=== PATIENT | male | born 1960 | race Caucasian/White ===

== ENCOUNTER 2016-12-12 15:57 | Inpatient (IN) | payer OTHER, MEDICARE ==
[~2016-12-12] VITALS: Ht 160 cm; Wt 116.6 kg
[~2016-12-12 15:57] MED LIST: A&D OINTMENT TOP; AMBIEN 10MG10 MG PO; CLEOCIN HCL300 MG PO; FUROSEMIDE40 MG PO; HYDROCODONE/ACE1 TAB PO; LISINOPRIL10 MG PO; METFORMIN1000 MG PO; PRAVASTATIN SOD40 M1 PO; [UNRECOGNIZED DRUG - OTHER] PO; nicotine TOP
--- NOTE | 2016-12-12 16:03 | ED UPPER/LOWER EXTREMITY COMPL ---
History of Present Illness General Chief Complaint: Lower Extremity Problems Stated Complaint: LEFT FOOT WOUND PROBLEMS Source: patient, old records, EMS Exam Limitations: no limitations Vital Signs & Intake/Output Vital Signs & Intake/Output Vital Signs Date Time Temp Pulse Resp B/P B/P Pulse O2 O2 Flow FiO2 Mean Ox Delivery Rate 12/16 2222 98.0 70 18 132/71 96 Room Air 06/05 1600 95 Room Air Room Air /05 1409 98.4 68 18 130/62 96 06/ 1142 Room Air Room Air / 0944 80 140/80 06/05 0649 99.7 83 20 158/78 97 Room Air 06/05 0524 100.4 79 20 170/82 95 Room Air ED Intake and Output 12/17 0000 06/05 1200 Intake Total 1580 Output Total 700 1150 Balance 880 -1150 Intake, IV 250 Intake, Oral 1330 Number 1 Bowel Movements Output, Urine 700 1150 Allergies Coded Allergies: NO KNOWN ALLERGIES (10/10/15) Triage Nurses Notes Reviewed? 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 Patient denies any shortness of breath chest pain cough abdominal pain nausea vomiting. Patient was brought in by ambulance in which EMS state that patient's residency is excessively uncapped and unhygienic patient's feet are covered in DIRT and bandageD (SHERITA JOSEPH) Reconcile Medications Furosemide 40 MG TABLET 1 TAB PO DAILY DIURETIC (Reported) Gabapentin 100 MG CAPSULE 1 CAP PO 4XDAILY NERVE PAIN (Reported) Glyburide 5 MG TABLET 1 TAB PO BID DM (Reported) Hydrocodone/Acetaminophen (Hydrocodon-Acetaminophn 10-325) 10 MG-325 MG TABLET 1 TAB PO 4XDAILY PAIN (Reported) Lisinopril 10 MG TABLET 1 TAB PO DAILY BP (Reported) Metformin HCl 1,000 MG TABLET 1 TAB PO BID DM (Reported) Morphine Sulfate (Morphine Sulfate ER) 15 MG TABLET.ER 1 TAB PO BID PAIN ( Reported) Pravastatin Sodium (Pravachol) 80 MG TABLET 1 TAB PO DAILY CHOLESTEROL ( Reported) Zolpidem Tartrate (Ambien) 10 MG TABLET 1 TAB PO PRN SLEEP (Reported) (TORREY PENDLETON,KISHORE Vigil) Past History Travel History Traveled to [place] past 21 day No Medical History Any Pertinent Medical History? 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 Hx Contributory? No (SHERITA JOSEPH) Review of Systems Review of Systems Constitutional: Reports: see HPI, fever. EENTM: Reports: no symptoms. Respiratory: Reports: no symptoms. Cardiovascular: Reports: no symptoms. Gastrointestinal/Abdominal: Reports: no symptoms. Genitourinary: Reports: no symptoms. Musculoskeletal: Reports: see HPI. Skin: Reports: see HPI, change in skin color. Neurological/Psychological: Reports: no symptoms. Hematologic/Endocrine: Reports: no symptoms. Immunological: Reports: no symptoms. All Other Systems: Reviewed and Negative (SHERITA JOSEPH) Physical Exam Physical Exam General Appearance: no apparent distress, comfortable, obese Head: atraumatic Eyes: Bilateral: normal appearance. Ears, Nose, Throat: hearing grossly normal Neck: normal inspection Cardiovascular/Respiratory: regular rate/rhythm Peripheral Pulses: 2+ dorsalis pedis (R), 2+ dorsalis pedis (L) Neurologic/Tendon: normal motor functions, responds to pain, no evidence tendon injury, no pulse deficit Comments: Noted bilateral lower extremity pitting edema Diagram Feet Top 1) 2 cm circular in diameter open ulcer with purulent discharge noted significant surrounding erythema warmth and tenderness (SHERITA JOSEPH) Progress Differential Diagnosis: arterial insufficiency, cellulitis, compartment syndrome , contusion, dislocation, DVT, fracture, septic arthritis, OSTEOMYELITIS Plan of Care: Orders Procedure Date/time Status Nothing by Mouth 12/17 B Active CBC WITHOUT DIFFERENTIAL 06/06 0600 Active VANCOMYCIN TROUGH 12/17 0000 Complete Consistent Carbohydrate 2 12/16 B Complete Therapeutic Exercise 12/16 UNK Complete Therapeutic Activity 12/16 UNK Complete Therapeutic Exercises 12/16 UNK Complete Nursing Misc 12/16 UNK Active MISSING MEDICATION FORM 12/16 UNK Active INCENTIVE SPIROMETRY TRX CHG 12/13 UNK Complete Current Medications Sig/Zehra Start time Last Medication Dose Stop Time Status Admin Insulin Human Regular 0 Q6 12/17 0600 AC (NovoLIN R) Dextrose/Sodium 1,000 ML Q13H 12/17 0015 AC 12/17 Chloride 12/17 1314 0034 (D5W-1/2 Normal Saline 1000ML) Hydromorphone HCl 1 MG Q3P PRN 12/16 1030 AC 12/16 (Dilaudid) 2322 Morphine Sulfate 15 MG BID 12/16 1016 AC 12/16 (Ms Contin) 2128 Vancomycin HCl 1,500 MG Q12H 12/14 1230 AC 12/17 Sodium Chloride 250 ML 0033 (Normal Saline 0.9%) Pravastatin Sodium 80 MG 1700 12/13 1700 AC 12/16 (Pravachol) 1742 Docusate Sodium 100 MG DAILY NEEDED PRN 12/13 1200 AC (Colace) Senna/Docusate Sodium 2 TAB DAILY NEEDED PRN 12/13 1200 AC (Senokot S) Polyethylene Glycol 17 GM DAILY 12/13 1149 AC 12/15 (Miralax) 1103 Furosemide 40 MG DAILY 12/13 1000 AC 12/16 (Lasix) 0941 Gabapentin 100 MG 4 TIMES/DAY 12/13 1000 AC 12/16 (Neurontin) 2128 Nicotine 21 MG DAILY 12/13 1000 AC 12/16 (Nicoderm) 1559 Lisinopril 10 MG DAILY 12/12 2230 AC 12/16 (Prinivil) 0944 Heparin Sodium 5,000 UNIT Q8 12/12 2200 AC 12/16 (Porcine) 2128 Acetaminophen 650 MG Q6P PRN 12/12 2114 AC 12/15 (Tylenol) 0750 Zolpidem Tartrate 10 MG AT BEDTIME NEED.. 12/12 2114 AC (Ambien) Laboratory Tests 12/17/16 0015: Vancomycin Trough 21.6 H 12/16/16 0705: Anion Gap 12, Estimated GFR 57 L, BUN/Creatinine Ratio 34.6 H, CBC w Diff NO MAN DIFF REQ, RBC 3.62 L, MCV 82.1, MCH 26.7 L, RDW 17.5 H, MPV 8.3, Gran % 81.9 H, Lymphocytes % 10.0 L, Monocytes % 5.5, Eosinophils % 2.2, Basophils % 0.4, Absolute Granulocytes 11.2 H, Absolute Lymphocytes 1.4, Absolute Monocytes 0.8 H, Absolute Eosinophils 0.3, Absolute Basophils 0.1, PUBS MCHC 32.5 L Patient on initial examination was noted to be febrile and left foot show significant concerns of osteomyelitis. Discussed patient with Dr. Gutierrez who advised patient to not begin antibiotics and will be nothing by mouth and patient will be transferred to the surgical suite for bone culture evaluation for specific antibiotics for patients critical findings of osteomyelitis. Patient will be admitted to hospital staff (FRANCK MCGHEE,SHERITA) Diagnostic Imaging: Viewed by Me: Radiology Read. Radiology Impression: acute abnormality Comments: PATIENT: JASPREET DELGADO PRESENT AGE: 56 PATIENT ACCOUNT NO: [id number] : 58 LOCATION: [facility] ORDERING PHYSICIAN: SHERITA MCGHEE SERVICE DATE: 12/12/16 EXAM TYPE: RAD - XRY-FOOT COMPLETE, LEFT EXAMINATION: XR FOOT, LEFT CLINICAL INFORMATION: Suspected osteomyelitis at the level of the medial aspect of the first metatarsophalangeal joint. COMPARISON: MRI of the left foot 11/08/2016. Plain films of the left foot 11/04/2016. TECHNIQUE: AP, lateral, and oblique views of the left foot. FINDINGS: Evaluation of the left foot demonstrates a soft tissue defect along the medial aspect of the left foot, adjacent to the first metatarsophalangeal joint. In comparison to the prior examination, there has been increased cortical lucency along the medial aspect of the left great toe, at the base of the proximal phalanx of the left great toe as well as along the medial aspect of the head of the first metatarsal bone. There are moderate degenerative changes involving the metatarsophalangeal joint. No acute fracture or dislocation of the left foot is identified. Scattered foci of subcutaneous emphysema are visualized posterior to the ankle joint. Incidental note is made of posterior and inferior calcaneal heel spurs at the site of insertion of the Achilles tendon and plantar aponeurosis. IMPRESSION: A soft tissue defect along the medial aspect of the left foot, adjacent to the first metatarsophalangeal joint. Interval increased cortical lucency along the medial aspect of the left great toe, specifically along the medial aspect of the base of the proximal phalanx of the left great toe as well as along the medial aspect of the head of the first metatarsal bones. These findings are suspicious for acute osteomyelitis. There are scattered foci of subcutaneous emphysema posterior to the ankle joint. This critical result was discussed with Dr. Sherita Gunn at 5:52 PM on 12/12/2016 and it was ascertained that the content and urgency of the report was understood at the time of direct communication. (SHERITA JOSEPH) Departure Departure Disposition: STILL A PATIENT Condition: Critical Clinical Impression Primary Impression: Osteomyelitis of left foot Secondary Impressions: Cellulitis of left foot, Diabetic foot ulcer Referrals: Madalyn BATISTA MD (PCP/Family) Departure Forms: Customer Survey General Discharge Information Admission Note Spoke With: KWAKU HERRON M.D Documentation of Exam: Documentation of any treatments & extenuating circumstances including Concerns Regarding Discharge (functional status, medication knowledge or non-compliance, living conditions, etc.) that warrant an admission rather than observation: [ Patient will require IV antibiotics after culture is obtained for concerns of osteomyelitis. Patient requires repeat labs, IV fluid resuscitation antipyretics and podiatry consultation] (SHERITA JOSEPH) OR/GI Note Spoke With: MARIBELL GUTIERREZ DPM ED Treatment Decision: JASPREET DELGADO requires urgent operative management or an emergent procedure that cannot be performed in the Emergency Room setting. Transport To: [facility] PA/MONTESSORI PARAPROFESSIONAL Co-Sign Statement Statement: ED Attending supervision documentation- [X] I saw and evaluated the patient. I have also reviewed all the pertinent lab results and diagnostic results. I agree with the findings and the plan of care as documented in the PA's/MONTESSORI PARAPROFESSIONAL's documentation. [X] I have reviewed the ED Record and agree with the PA's/MONTESSORI PARAPROFESSIONAL's documentation. [] Additions or exceptions (if any) to the PAs/MONTESSORI PARAPROFESSIONAL's note and plan are summarized below: [] (TORREY PENDLETON,KISHORE Vigil) Critical Care Note Critical Care Note Critical Care Time: 30-74 min (SHERITA JOSEPH)
--- NOTE | 2016-12-12 16:10 | NUR ---
56 YEAR OLD MALE BIBA FROM HOME C/O LEFT FOOT WOUND. PT ARRIVES TO ED DISHEVELED AND LEHTARGIC FALLING ASLEEP WHILE TALKING TO STAFF. PT REPORTS PMH OF DIABTETE, HYPTERNSION AND CHRONIC PAIN. PT DENIES TAKING ANY HOME MEDICATIONS TODAY. WOUND TO LEFT FOOT WRAPPED IN GAUZE.
--- NOTE | 2016-12-12 16:41 | NUR ---
BLOOD WORK DRAWN AND SENT TO LAB: SST X 2, LAV, BLUE, REYNOSO, PINK TOPS AND FIRST SET OF BLOOD CULTURES. IV EST TO L FOREARM. IV NS LITER BOLUS INFUSING NOW. PT MEDICATED WITH TYLENOL PER EMAR FOR FEVER. PT'S F/S 242.
[2016-12-12 16:45] LABS: ABSOLUTE BASOPHIL COUNT 0 /CUMM (0.0-0.2); ABSOLUTE EOSINOPHIL COUNT 0 /CUMM (0.0-0.7); ABSOLUTE GRANULOCYTE CT 19.1 /CUMM (1.4-6.5); ABSOLUTE LYMPH COUNT 1.2 /CUMM (1.2-3.4); ABSOLUTE MONOCYTE COUNT 1.4 /CUMM (0.10-0.60); BASOPHIL % 0.1 % (0.0-2.0); EOSINOPHIL % 0 % (0-5); HEMATOCRIT 31.2 % (42-52); MEAN CORPUSCULAR HGB 27.1 PG (27.0-31.0); MEAN CORPUSCULAR HGB CONC 33.1 G/DL (33.0-37.0); MEAN CORPUSCULAR VOLUME 81.7 FL (80.0-94.0); MEAN PLATELET VOLUME 7.3 FL (7.4-10.4); PLATELET COUNT 355 /CUMM (130-400); RBC DISTRIBUTION WIDTH 16.9 % (11.5-14.5); RED BLOOD CELL CT 3.82 /CUMM (4.70-6.10); WHITE BLOOD CELL COUNT 21.8 /CUMM (4.8-10.8)
--- NOTE | 2016-12-12 16:45 | NUR ---
ATTEMPTED TO WIPE DOWN PT SINCE PT IS VERY DIRTY. PT REPORTS HE HAS NOT BEEN ABLE TO WALK AROUND AT HOME MUCH HE USUALLY CAN.
[2016-12-12 16:55] LABS: GRANULOCYTE % 87.9 % (42.2-75.2)
[2016-12-12] MEDS ORDERED: METFORMIN HCL1000 M1 PO (17:01)
[2016-12-12] MEDS ORDERED: LISINOPRIL10 M1 PO (17:01)
[2016-12-12] MEDS ORDERED: GLYBURIDE5 M1 PO (17:02)
[2016-12-12] MEDS ORDERED: HYDROCODON-ACE1 EAC1 PO (17:02)
[2016-12-12] MEDS ORDERED: MORPHINE SULFAT15 M3 PO (17:02)
[2016-12-12] MEDS ORDERED: GABAPENTIN100 M2 PO (17:03)
[2016-12-12] MEDS ORDERED: PRAVACHOL80 M1 PO (17:03)
[2016-12-12] MEDS ORDERED: FUROSEMIDE40 M1 PO (17:03)
[2016-12-12] MEDS ORDERED: AMBIEN10 M1 PO (17:04)
--- NOTE | 2016-12-12 17:46 | Cons- Podiatry ---
General Information and HPI Consulting Request Date of Consult: 12/12/16 Requested By: DR HERRON History of Present Illness: Mr. Rudd is a 56-year-old diabetic with a 4-5 day history of fevers associated with a painful and swollen left foot and a draining open wound. The patient has a history of a nonhealing ulcer which was evaluated periodically in the wound center and was noted to undergo a significant interval worsening. The patient now presents with a septic left foot. Allergies/Medications Allergies: Coded Allergies: NO KNOWN ALLERGIES (10/10/15) Home Med List: Furosemide 40 MG TABLET 1 TAB PO DAILY DIURETIC (Reported) Gabapentin 100 MG CAPSULE 1 CAP PO 4XDAILY NERVE PAIN (Reported) Glyburide 5 MG TABLET 1 TAB PO BID DM (Reported) Hydrocodone/Acetaminophen (Hydrocodon-Acetaminophn 10-325) 10 MG-325 MG TABLET 1 TAB PO 4XDAILY PAIN (Reported) Lisinopril 10 MG TABLET 1 TAB PO DAILY BP (Reported) Metformin HCl 1,000 MG TABLET 1 TAB PO BID DM (Reported) Morphine Sulfate (Morphine Sulfate ER) 15 MG TABLET.ER 1 TAB PO BID PAIN ( Reported) Pravastatin Sodium (Pravachol) 80 MG TABLET 1 TAB PO DAILY CHOLESTEROL ( Reported) Zolpidem Tartrate (Ambien) 10 MG TABLET 1 TAB PO PRN SLEEP (Reported) Past History Medical History Neurological: NONE EENT: NONE Cardiovascular: hypertension, hyperlipidemia Respiratory: NONE Gastrointestinal: NONE Hepatic: NONE Renal: NONE Musculoskeletal: NONE Psychiatric: NONE Endocrine: diabetes Blood Disorders: NONE Cancer(s): NONE 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 Psychosocial History ETOH Use: denies use Illicit Drug Use: denies illicit drug use Review of Systems Review of Systems: Unremarkable except for that noted in history of present illness Exam & Diagnostic Data Vital Signs and I&O Vital Signs Date Time Temp Pulse Resp B/P B/P Pulse O2 O2 Flow FiO2 Mean Ox Delivery Rate 12/12 1640 100.5 12/12 1600 100.5 95 20 170/60 95 Room Air Room Air Physical Exam: Gonzales grade 4 ulceration left foot. There is a foul-smelling and necrotic full -thickness wound to the medial aspect of the left foot at the level of the first metatarsal head. There is necrotic slough and central probing with exposed bone identified. There is cellulitis extending to above the ankle with edema noted. Assessment/Plan Assessment/Plan Left foot osteomyelitis. Patient to the OR for open partial first ray resection. We'll start the patient empirically on Unasyn. Patient will likely require a long-term course of IV antibiotics pending recommendations from the infectious disease service. Consult Acknowledgment - Thank you for your consult request. Attending MD Review Statement Attending Statement Attending MD Statement: examined this patient
--- NOTE | 2016-12-12 17:46 | RADIOLOGY REPORT ---
EXAMINATION: XR PORTABLE CHEST CLINICAL INFORMATION: Osteomyelitis. COMPARISON: Chest x-ray 09/10/2006. TECHNIQUE: Portable frontal view of the chest was obtained. FINDINGS: The lungs are well-expanded and clear without focal airspace consolidation. No pleural effusions or pneumothoraces are identified. Cardiomediastinal contours are within normal limits. Soft tissues are unremarkable. No acute osseous abnormality is identified. IMPRESSION: No acute pulmonary process.
--- NOTE | 2016-12-12 17:47 | NUR ---
PRE-OP SCRUB COMPLETED, PT HAS EXCESSIVE AMOUNT OF DIRT ON FEET THAT WAS ATTEMPTED TO BE WIPED OFF TWICE. PRE OP SCRUB COMPLETED TO BEST OF ABILITY.
--- NOTE | 2016-12-12 17:55 | RADIOLOGY REPORT ---
EXAMINATION: XR FOOT, LEFT CLINICAL INFORMATION: Suspected osteomyelitis at the level of the medial aspect of the first metatarsophalangeal joint. COMPARISON: MRI of the left foot 11/08/2016. Plain films of the left foot 11/04/2016. TECHNIQUE: AP, lateral, and oblique views of the left foot. FINDINGS: Evaluation of the left foot demonstrates a soft tissue defect along the medial aspect of the left foot, adjacent to the first metatarsophalangeal joint. In comparison to the prior examination, there has been increased cortical lucency along the medial aspect of the left great toe, at the base of the proximal phalanx of the left great toe as well as along the medial aspect of the head of the first metatarsal bone. There are moderate degenerative changes involving the metatarsophalangeal joint. No acute fracture or dislocation of the left foot is identified. Scattered foci of subcutaneous emphysema are visualized posterior to the ankle joint. Incidental note is made of posterior and inferior calcaneal heel spurs at the site of insertion of the Achilles tendon and plantar aponeurosis. IMPRESSION: A soft tissue defect along the medial aspect of the left foot, adjacent to the first metatarsophalangeal joint. Interval increased cortical lucency along the medial aspect of the left great toe, specifically along the medial aspect of the base of the proximal phalanx of the left great toe as well as along the medial aspect of the head of the first metatarsal bones. These findings are suspicious for acute osteomyelitis. There are scattered foci of subcutaneous emphysema posterior to the ankle joint. This critical result was discussed with Dr. Edd Gunn at 5:52 PM on 12/12/2016 and it was ascertained that the content and urgency of the report was understood at the time of direct communication.
--- NOTE | 2016-12-12 17:58 | NUR ---
PT TAKEN TO OR BY DR. GUTIERREZ AND ANESTHESIOLOGIST.
--- NOTE | 2016-12-12 19:26 | Operative Report ---
Operative/Inv Procedure Report Surgery Date: 12/12/16 Name of Procedure: 1 open incision and drainage deep to the deep fascia with exposure of the flexor tendon and tendon sheath multiple sites left foot 2 open partial first ray resection left foot 3 intraoperative administration of ankle block anesthesia 4 excisional debridement Pre-Operative Diagnosis: 1 plantar space abscess left foot 2 osteomyelitis left foot 3 diabetic peripheral neuropathy Post-Operative Diagnosis: The same Estimated Blood Loss: less than 50ml Surgeon/Medical Record Consultant: MARIEBLL GUTIERREZ DPM Anesthesia: moderate sedation, block Operative/Procedure Note Note: After obtaining informed consent the patient was brought to the operating room and placed on the operating table in the supine position. The patient was then securely fastened to the operating table utilizing safety belt. After administration of IV sedation, 10 mL of 0.5% Marcaine plain was infiltrated about the patient's left ankle. The left foot and ankle within scrubbed prepped and draped in usual aseptic manner. A racquet-type incision encompassing the great toe at the level metatarsal phalangeal joint was incised with a 15 blade. Full-thickness flaps were developed dorsally and plantarly. Dissection was then extended proximally to the distal first metatarsal shaft. The periosteum was incised reflected. Sagittal bone saw was utilized to perform a through and through osteotomy and the distal osseous segment was freed and passed from the operative field. Specimen sent for both microbiologic and pathologic inspection. The dissection was then continued plantarly, along the flexor hallucis longus tendon, where the dissection was carried down deep to the deep fascia with exposure of the flexor tendon and tendon sheath multiple sites, both proximally and distally. All necrotic nonviable infected tissue sharply evacuated from the wound bed. The open dissection was then continued back to the tarsal tunnel. Purulence was noted to be expressed along the flexor tendon. The open wound was then irrigated with 3 L of normal sterile saline infused with 50,000 units of bacitracin. Following this, the foot was redraped and the surgeon's top gloves were exchanged for clean gloves. Any bleeding vessels identified were cauterized or ligated as encountered. Nipple was then packed with iodoform and 2-0 nylon retention sutures were placed followed by 4 x 4's EBD pad Kerlix and an Zach wrap. The patient was noted to tolerate both procedure and anesthesia well and the patient was transported from the operating room to recovery with vital signs stable.
--- NOTE | 2016-12-12 19:57 | History & Physical ---
CRISTÓBAL WEEKS MD 12/12/161955: General Information and HPI MD Statement: I have seen and personally examined DANNYJASPREET Kelley and documented this H&P. The patient is a 56 year old M who presented with a patient stated chief complaint of [fever, infected left foot]. Source of Information: patient Exam Limitations: no limitations History of Present Illness: 56-year-old male, with past medical history of uncontrolled diabetes mellitus type 2, peripheral neuropathy, hypertension, hyperlipidemia, nonhealing ulcer of the left foot, was brought in by ambulance for fever up to 102.6, chills, painful and swollen left foot with drainage. Patient has had nonhealing wound over his left foot for which he has been follow up with Dr. Sanchez. The left foot pain has progressed over the last 3-4 days. It is so painful that he is no longer able to bear weight on it. When the EMS came to pick him up, they noted that his home is unkempt and dirty. Patient's feet are covered with dirt and bandage. Imaging in the ED reveals likely osteomyelitis, and he was taken to the OR straight from the ED by Dr. Sanchez. When we saw the patient, he was in the recovery room and still recovering from anesthesia. He was quite lethargic but cooperative with history and physical exam. When he was sipping on water, he aspirated and coughed very hard. He then was noted to have mild epistaxis. Allergies/Medications Allergies: Coded Allergies: NO KNOWN ALLERGIES (10/10/15) Home Med list Furosemide 40 MG TABLET 1 TAB PO DAILY DIURETIC (Reported) Gabapentin 100 MG CAPSULE 1 CAP PO 4XDAILY NERVE PAIN (Reported) Glyburide 5 MG TABLET 1 TAB PO BID DM (Reported) Hydrocodone/Acetaminophen (Hydrocodon-Acetaminophn 10-325) 10 MG-325 MG TABLET 1 TAB PO 4XDAILY PAIN (Reported) Lisinopril 10 MG TABLET 1 TAB PO DAILY BP (Reported) Metformin HCl 1,000 MG TABLET 1 TAB PO BID DM (Reported) Morphine Sulfate (Morphine Sulfate ER) 15 MG TABLET.ER 1 TAB PO BID PAIN ( Reported) Pravastatin Sodium (Pravachol) 80 MG TABLET 1 TAB PO DAILY CHOLESTEROL ( Reported) Zolpidem Tartrate (Ambien) 10 MG TABLET 1 TAB PO PRN SLEEP (Reported) Past History Travel History Traveled to [place] past 21 day No Medical History Neurological: NONE EENT: NONE Cardiovascular: hypertension, hyperlipidemia Respiratory: NONE Gastrointestinal: NONE Hepatic: NONE Renal: NONE Musculoskeletal: NONE Psychiatric: NONE Endocrine: diabetes Blood Disorders: NONE Cancer(s): 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 Psychosocial History Where do you live? Home Who Do You Live With? spouse Services at Home: None Primary Language: Somali Smoking Status: Current Everyday Smoker (2ppd) ETOH Use: denies use Illicit Drug Use: denies illicit drug use Functional Ability ADLs Independent: dressing, eating, toileting, bathing. Ambulation: independent IADLs Independent: shopping, housework, finances, food prep, telephone, transportation , medication admin. Review of Systems Review of Systems Constitutional: Reports: chills, fever. EENTM: Denies: visual changes. Cardiovascular: Denies: chest pain, palpitations. Respiratory: Reports: cough. Denies: short of breath, sputum production, wheezing. GI: Denies: abdominal pain, bloating, constipation, diarrhea. Genitourinary: Denies: dysuria. Musculoskeletal: Reports: see HPI. Skin: Reports: see HPI. Exam & Diagnostic Data Last 24 Hrs of Vital Signs/I&O Vital Signs Date Time Temp Pulse Resp B/P B/P Pulse O2 O2 Flow FiO2 Mean Ox Delivery Rate 12/12 2324 114 224/90 12/12 2303 99.9 12/12 1748 Room Air Room Air 12/12 1746 100.3 12/12 1746 100.3 93 20 130/63 93 Room Air Room Air 12/12 1640 100.5 12/12 1600 100.5 95 20 170/60 95 Room Air Room Air Physical Exam General Appearance Oriented X3, Cooperative, No Acute Distress, lethargic Skin chronic edema and erythema of both lower extremities left foot wrapped post surgery left big toe now amputated Skin Temp/Moisture Exam: Warm/Dry Sepsis Skin Exam (color): Normal for Ethnicity HEENT Atraumatic, PERRLA, EOMI, dry mucous membrane Neck Supple, No JVD, +2 Carotid Pulse wo Bruit, No LAD Lymphatic Axillary nl, Cervical nl Cardiovascular Regular Rate, Normal S1, Normal S2, No Murmurs, Gallops, Rubs Lungs not taking deep breaths, hence decreased breath sound Abdomen Normal Bowel Sounds, Soft, No Tenderness Neurological Normal Speech Extremities bilateral pitting edema left more than right (chronic as per patient) , left big toe amputated Vascular Normal Pulses, Pulses Symmetrical Last 24 Hrs of Labs/Jabier: Laboratory Tests 12/12/16 1630: Anion Gap 13, Estimated GFR > 60, BUN/Creatinine Ratio 26.7 H, Glucose 245 H, Hemoglobin A1c Pending, Lactic Acid 0.9, Calcium 9.0, Total Bilirubin 0.6, AST 46, ALT 59, Alkaline Phosphatase 151 H, C-Reactive Prot, Quant > 9.0 H, Total Protein 7.1, Albumin 3.2 L, Globulin 3.9, Albumin/Globulin Ratio 0.8 L, CBC w Diff NO MAN DIFF REQ, RBC 3.82 L, MCV 81.7, MCH 27.1, RDW 16.9 H, MPV 7.3 L, Gran % 87.9 H, Lymphocytes % 5.6 L, Monocytes % 6.4, Eosinophils % 0, Basophils % 0.1, Absolute Granulocytes 19.1 H, Absolute Lymphocytes 1.2, Absolute Monocytes 1.4 H, Absolute Eosinophils 0, Absolute Basophils 0, PUBS MCHC 33.1, ESR Westergren > 130 H, Serum Alcohol < 10.0 Microbiology 12/12 1899 EXTREMITIE: Gross Specimen Examination - RECD 12/12 190 EXTREMITIE: Gram Stain - RECD 12/12 1728 BLOOD: Blood Culture - RECD 12/12 1630 BLOOD: Blood Culture - RECD Diagnostic Data EKG Results SR 96, QTc [address], T wave changes Other Results EXAM TYPE: RAD - XRY-FOOT COMPLETE, LEFT EXAMINATION: XR FOOT, LEFT CLINICAL INFORMATION: Suspected osteomyelitis at the level of the medial aspect of the first metatarsophalangeal joint. COMPARISON: MRI of the left foot 11/08/2016. Plain films of the left foot 11/04/2016. TECHNIQUE: AP, lateral, and oblique views of the left foot. FINDINGS: Evaluation of the left foot demonstrates a soft tissue defect along the medial aspect of the left foot, adjacent to the first metatarsophalangeal joint. In comparison to the prior examination, there has been increased cortical lucency along the medial aspect of the left great toe, at the base of the proximal phalanx of the left great toe as well as along the medial aspect of the head of the first metatarsal bone. There are moderate degenerative changes involving the metatarsophalangeal joint. No acute fracture or dislocation of the left foot is identified. Scattered foci of subcutaneous emphysema are visualized posterior to the ankle joint. Incidental note is made of posterior and inferior calcaneal heel spurs at the site of insertion of the Achilles tendon and plantar aponeurosis. IMPRESSION: A soft tissue defect along the medial aspect of the left foot, adjacent to the first metatarsophalangeal joint. Interval increased cortical lucency along the medial aspect of the left great toe, specifically along the medial aspect of the base of the proximal phalanx of the left great toe as well as along the medial aspect of the head of the first metatarsal bones. These findings are suspicious for acute osteomyelitis. There are scattered foci of subcutaneous emphysema posterior to the ankle joint. This critical result was discussed with Dr. Edd Gunn at 5:52 PM on 12/12/2016 and it was ascertained that the content and urgency of the report was understood at the time of direct communication. DICTATED BY: JESSI PARIS MD DATE/TIME DICTATED:12/12/161741 EXAM TYPE: RAD - XRY-PORTABLE CHEST XRAY EXAMINATION: XR PORTABLE CHEST CLINICAL INFORMATION: Osteomyelitis. COMPARISON: Chest x-ray 09/10/2006. TECHNIQUE: Portable frontal view of the chest was obtained. FINDINGS: The lungs are well-expanded and clear without focal airspace consolidation. No pleural effusions or pneumothoraces are identified. Cardiomediastinal contours are within normal limits. Soft tissues are unremarkable. No acute osseous abnormality is identified. IMPRESSION: No acute pulmonary process. DICTATED BY: JESSI PARIS MD DATE/TIME DICTATED:12/12/161733 Assessment/Plan Assessment: 56-year-old male, with past medical history of uncontrolled diabetes mellitus type 2, peripheral neuropathy, hypertension, hyperlipidemia, nonhealing ulcer of the left foot, was brought in by ambulance for fever up to 102.6, chills, painful and swollen left foot with drainage. Labs (WBC 21.8, ESR >130, CRP > 9) and imaging concerning for osteomyelitis, patient was taken to the OR by Dr. Sanchez on 12/12/16 for first ray resection. Subsequently transferred to post op. Problem list: # Osteomyelitis of left foot s/p resection # Poorly controlled DM with peripheral neuropathy # Hypertension # Hyperlipidemia # Chronic lower extremity edema, left more than right # Nicotine dependence # Osteomyelitis of left foot s/p resection * Unasyn 3000 mg every 6 * Follow-up for culture, blood culture * ID consult in the morning * Weight-bearing status heel touch * PP: Dilaudid 0.5 mg IV every 4 when necessary severe pain, Percocet 1 tab every 6 when necessary moderate pain, Tylenol 650 mg every 6 when necessary mild pain. MS Contin 50 mg twice a day * Appreciate podiatry input # Poorly controlled DM with peripheral neuropathy * Follow-up hemiglobin A1c * Insulin NovoLog tidac * We'll hold home glyburide and metformin * Continue Gabapentin 100 mg 4 times a day # Hypertension * Continue Lisinopril 10 mg daily # Hyperlipidemia * Pravastatin 80 mg daily # Chronic lower extremity edema, left more than right * Continue Lasix 40 mg daily # Nicotine dependence * Nicotine patch 21 mg daily # Sleep * Continue Zolpidem 10 mg at bedtime as needed Diet: heart healthy PP: Dilaudid 0.5 mg IV every 4 when necessary severe pain, Percocet 1 tab every 6 when necessary moderate pain, Tylenol 650 mg every 6 when necessary mild pain MS Contin 50 mg twice a day DVT ppx: Heparin subcutaneous and alps FULL CODE As Ranked By This Provider Problem List: 1. Osteomyelitis of left foot Core Measures/Miscellaneous Acute Coronary Syndrome ACS Diagnosis: No Cerebrovascular Accident CVA/TIA Diagnosis: No Congestive Heart Failure CHF Diagnosis: No Venous Thromboembolism VTE Risk Factors: Acute medical illness, Age > 40, Immobility, paresis No [facility] VTE prophylaxis d/t: No contraindications No VTE Pharm Prophylaxis d/t: No contraindications VTE Diagnosis: No VTE Type: NONE VTE Confirmed by (Test): NONE Severe Sepsis Severe Sepsis Present: No Septic Shock Septic Shock Present: No Miscellaneous Documentation Attending Case Discussed With: Dr Pyle Primary Care Physician: Madalyn BATISTA MD Patient sees these Specialists Dr Sanchez Level of Patient Care: General Medicine Consults Needed: Consulting Specialty: Infectious Disease Consulting Physician: Dr. Quentzel Reason for Consult: Osteomyelitis ASHLEY,SHARAD 12/12/161957: Resident Review Statement Resident Statement: examined this patient, discussed with customer operations intern, agreed with customer operations intern, discussed with family, reviewed EMR data (avail), discussed with nursing , discussed with case mgmt, reviewed images, amended to note Other Findings: 56-year-old male with a past medical history of [id number] diabetes mellitus, hypertension, osteomyelitis, hyperlipidemia, also with Dr. Sanchez presented to the ED with concerns for infection that has been going on for the past 4 days. According to the patient he has been noncompliant following up with Dr. Sanchez for osteomyelitis of his left foot. He states that for the past 4 days or so he 's been having excruciating pain in his left fourth associated with purulent discharge. He reports fever of 102.6F as well as chills. Denies any nausea, vomiting, abdominal pain, alterations in bowel movements, chest pain, palpitations, headache. He does endorse cough and bringing up purulent phlegm. He denies any sore throat. He states that for the past couple of days or so he has not been able to ambulate because of pain in his left foot that he grades as a 10 out of 10. Of note he is a current smoker smoking 2 packs per day and has been doing so for a very prolonged period of time. He denies any illicit drug use or alcohol dependence. He states that he's been taking his medications very compliantly. Vitals at the time of admission were 130/63, respiratory rate of 20, pulse 93, MAXIMUM TEMPERATURE of 100.5 saturating 90% on room air On physical exam he is alert, oriented 3, drowsy as he is just coming off sedation from the anesthesia. HEENT revealed PERRLA, dry mucous membranes with minor nosebleed. Examination of the neck did not reveal an elevated JVP or cervical lymphadenopathy. Cardiovascular exam pertinent for normal S1, S2, no murmurs rubs or gallops appreciated. Auscultation of the chest revealed decreased breath sounds bilaterally, abdominal exam was benign with abdomen soft , nontender, nondistended normal bowel sounds present in all 4 quadrants. Examination of the lower extremities revealed bilateral chronic venous stasis changes with wound dressing of the left foot, amputation of the left great toe. He also had bilateral 3+ edema that was pitting. Neuro exam was grossly unremarkable. Labs pertinent for leukocytosis with a white blood cell count of 21,800, and normocytic anemia with an H&H of 10.4/31.2, platelet count of [id number]. ESR elevated to more than 130. Chemistries reveal hyponatremia with a sodium of 135 , potassium of 4.9, anion gap of 13, BUN 32 with a creatinine of 1.2. Serum glucose elevated to 245. LFTs revealed normal AST/ALT, alkaline phosphatase is elevated to 151, CRP within 9. UA was pending. U tox screen was also not done. Serum alcohol level was less than 10. Chest x-ray showed no pleural effusions, pneumothorax, no acute pulmonary process. Foot x-ray showed a soft tissue defect along the medial aspect of the left footadjacent to the first metatarsophalangeal joint. Interval increased cortical lucency along the medial aspect of the left great toe, specifically along the medial aspect of the base of the proximal phalanx of the left great toe as well as along the medial aspect of the head of the first metatarsal bones. These findings are suspicious for acute osteomyelitis. There are scattered foci of subcutaneous emphysema posterior to the ankle joint. In the ER she he received a bolus of normal saline, Tylenol 650 mg by mouth 1. He was evaluated by Dr. Sanchez recommended the patient not be given antibiotics and transferred to the surgical suite for open incision and drainage , excisional debridement as well as partial resection of the first ray of the left foot. Assessment and plan Admit patient to [facility] #Left foot osteomyelitis He underwent incision and drainage as well as debridement together with resection of his first digit of the left foot. We will start him on Unasyn 3000 mg IV every 6 He will be heel touch on his left foot. Follow-up podiatry recommendations Follow-up cultures from the OR, blood cultures as well as the biopsy of bone ID consult if needed. Pain control with MS extended release 50 mg twice a day, Dilaudid 0.5 mg every 4 when necessary IV, Percocet 1 tablet every 6 when necessary. Vitals q shift #Pin-[id number] diabetes mellitus Will hold metformin thousand milligrams twice a day, glyburide 5 mg twice a day We'll start him on NovoLog sliding scale Accu-Cheks 3 times a day and at bedtime #Hypertension Continue lisinopril 10 mg and furosemide 40 mg daily #Hyperlipidemia Continue pravastatin 80 mg daily #Insomnia Continue on Ambien 10 mg daily. -DVT prophylaxis Heparin 5000 international units 3 times a day subcutaneous -Diet Diabetic CODE STATUS Full code JOSHUA PYLE 12/13/16 0522: Attending MD Review Statement Attending Statement Attending MD Statement: examined this patient, discuss w/resident/PA/CORRESPONDENCE ANALYST, agreed w/resident/PA/CORRESPONDENCE ANALYST, reviewed EMR data (avail), reviewed images, amended to note Attending Assessment/Plan: CC: Left foot wound PMH: DM, HTN, HLD, smoker Patient brought in ER through EMS with complaint of left foot wound, pain. Patient has long-standing wound on left foot but since last 3-4 days he noticed more purulent discharge from ulcerated foot with swelling and increased redness. He also noticed fever at home. According to EMS note patient's resident was excessively unkempt and unhygienic and feet was covered with dirt. Patient's left foot wound was periodically examined at the wound center but given patient' s noncompliance it worsened over time. Patient was taken to OR from ED and underwent debridement. Vitals: Tmax 100.5, HR 95, RR 20, blood pressure 170/60, saturating well on room air. On exam: A O 3, cooperative, no acute distress, neck supple, JVD normal, no lymphadenopathy, mucosa moist, no focal neurological deficit, trace pedal edema, left foot wound dressed after surgery With cellulitis left lower extremity. CVS: S1-S2, RRR. RS: Clear to auscultate bilaterally. Abdomen: Soft, NT, ND, bowel sounds present. Labs: WBC 21.8, neutrophils 87%, ESR more than 130, hemoglobin 10.4, MCV 81, RDW 16, sodium 135, potassium 4.9, chloride 100, bicarbonate 22, BUN 32, creatinine 1.2, glucose 245, alkaline phosphatase 151, AST 46, ALT 59 X-ray left foot: A soft tissue defect along the medial aspect of the left foot, adjacent to the first metatarsophalangeal joint. Interval increased cortical lucency along the medial aspect of the left great toe, specifically along the medial aspect of the base of the proximal phalanx of the left great toe as well as along the medial aspect of the head of the first metatarsal bones. These findings are suspicious for acute osteomyelitis. There are scattered foci of subcutaneous emphysema posterior to the ankle joint. CXR: No acute pulmonary process. A and P 56-year-old male with past medical history significant for diabetes and previous osteomyelitis was brought in ER for worsening left foot pain and discharge from the ulcer. Patient had significant fever, leukocytosis and worse looking wound on examination in ER and was directly taken to OR. Patient underwent incision and drainage, debridement, and first great toe amputation. Blood cultures and intraoperative cultures were sent. + Left foot osteomyelitis with secondary cellulitis + Uncontrolled diabetes + History of HTN, HLD, smoker - Admit to general medicine - Continue IV Unasyn - Follow-up on wound culture and blood culture - ID consult if required - Continue sliding scale insulin, hold oral hypoglycemic - Continue by mouth Lasix and lisinopril - Continue home doses of MS Contin, and when necessary medications for breakthrough pain - DVT prophylaxis with heparin
[2016-12-12 23:00] VITALS: BP 224/90
--- NOTE | 2016-12-13 01:42 | NUR ---
12/12/16 AT 2100 PATIENT BP 224/90, HR 114, TEMP 99.9, O2 97% 2L NC, RESP 20. T/C TO DR. GUTIERREZ. 10 MG LISINOPRIL AND TYLENOL ADMINISTERED 650 MG PER MD ORDER. PATIENT WAS RE-ASSESSED BP 136/60, HR 98, 94% 1L NC, RESP 20. T/C TO MD WEEKS. IV TYLENOL WAS ADMINISTERED PER MD ORDER. WILL CONTINUE TO MONITOR.
--- NOTE | 2016-12-13 03:07 | NUR ---
RE-CHECKED TEMP 99. MD AWARE.
--- NOTE | 2016-12-13 05:23 | Admission Certification ---
Admission Certification Certification Statement - As attending physician, I certify that at the time of - admission, based on clinical presentation, severity of - symptoms, need for further diagnostic testing and - therapeutic interventions, and risk of adverse outcomes - without in-hospital treatment, in my clinical assessment, - this patient requires an acute hospital stay for a minimum - of two nights or longer. I have also considered psychsocial - factors such as support system, advanced age, financial - issues, cognitive issues, and failed out-patient treatments, - past re-admission history, safety of patient, and lack of - compliance as applicable. Specific rationale supporting this admission is: Left foot osteomyelitis
--- NOTE | 2016-12-13 05:24 | NUR ---
PATIENT BP 160/70, PULSE 99, TEMP 99.6, O2 SAT 96 RA, RESP 20. MD WEEKS AWARE. PATIENT RESTING COMFORTABLY IN BED. NO DISTRESS NOTED
[2016-12-13 06:50] VITALS: BP 136/60
--- NOTE | 2016-12-13 07:22 | PN- Housestaff ---
See Addendum MALIKA PENDLETON,ENDER 12/13/16 0720: Subjective Follow-up For: Osteomyelitis of left foot Subjective: I saw and examined the patient today morning He is lying in the bed -- reports significant pain in his leg. underwent debridement yesterday. He has been spiking fevers over the night. He was chronically on pain medications for pain all over the body. He had a rapid response later part of the day for being hypoxic and tachycardic -- work up has been negative. Review of Systems Constitutional: Reports: see HPI. Objective Last 24 Hrs of Vital Signs/I&O Vital Signs Date Time Temp Pulse Resp B/P B/P Pulse O2 O2 Flow FiO2 Mean Ox Delivery Rate 12/13 0650 98.4 98 20 136/60 93 Room Air 12/13 0128 100.9 12/13 0119 100.9 12/12 2324 114 224/90 12/12 2303 99.9 12/12 2300 99.9 114 20 224/90 97 Nasal 3.0L Cannula 12/12 1748 Room Air Room Air 12/12 1746 100.3 12/12 1746 100.3 93 20 130/63 93 Room Air Room Air 12/12 1640 100.5 12/12 1600 100.5 95 20 170/60 95 Room Air Room Air Intake & Output 12/13 0800 12/13 0000 12/12 1600 Intake Total 540 1000 Output Total 700 1400 Balance -160 -400 Intake, IV 300 1000 Intake, Oral 240 0 Output, Urine 700 1400 Patient 117.934 kg 120.202 kg Weight Weight Reported by Patient Reported by Patient Measurement Method Physical Exam General Appearance: Alert, Oriented X3, unkempt, multiple flesh colored lesions on the skin Skin: No Rashes HEENT: Atraumatic, PERRLA Neck: Supple Cardiovascular: Normal S1, Normal S2 Lungs: Clear to Auscultation, Normal Air Movement Abdomen: Normal Bowel Sounds, Soft, No Tenderness Neurological: Normal Speech, Normal Tone, Cranial Nerves 3-12 NL Extremities: No Clubbing, No Cyanosis Current Medications: Current Medications Sig/Zehra Start time Last Medication Dose Route Stop Time Status Admin Acetaminophen 1,000 MG ONCE ONE 12/13 1400 DC 12/13 N/A 1 UNIT IV 12/13 1414 1353 Acetaminophen 650 MG .STK-MED ONE 12/13 0842 DC PO 12/13 0843 Acetaminophen 1,000 MG ONCE ONE 12/13 0130 DC 12/13 N/A 1 UNIT IV 12/13 0144 0128 Acetaminophen 650 MG Q6P PRN 12/12 2115 AC 12/13 PO 0841 Ampicillin Sodium/ 3,000 MG Q6 12/12 2359 AC 12/13 Sulbactam Sodium IV 1851 Sodium Chloride 100 ML Docusate Sodium 100 MG DAILY NEEDED PRN 12/13 1200 AC PO Furosemide 40 MG DAILY 12/13 1000 AC 12/13 PO 0835 Gabapentin 100 MG 4 TIMES/DAY 12/13 1000 AC 12/13 PO 2114 Heparin Sodium 5,000 UNIT Q8 12/12 2200 AC 12/13 (Porcine) SC 2114 Hydromorphone HCl 1 MG Q4P PRN 12/13 1045 AC 12/13 IV 1617 Hydromorphone HCl 0.5 MG Q4P PRN 12/12 2115 DC 12/13 IV 0800 Insulin Aspart 0 TIDAC 12/13 0800 AC 12/13 SC 1809 Ketorolac 15 MG Q6 12/13 1800 CAN Tromethamine IV Ketorolac 15 MG Q6 12/13 1200 DC Tromethamine IV Ketorolac 30 MG Q6P PRN 12/13 1045 AC 12/13 Tromethamine IV 1851 Lisinopril 10 MG DAILY 12/13 1000 CAN PO Lisinopril 10 MG DAILY 12/12 2230 AC 12/13 PO 0834 Morphine Sulfate 15 MG BID 12/12 2200 DC 12/13 PO 0949 Nicotine 21 MG DAILY 12/13 1000 AC 12/13 TOP 0834 Oxycodone/ 1 TAB Q6P PRN 12/12 2359 DC 12/13 Acetaminophen PO 0415 Patient Medication 1 ED .STK-MED ONE 12/13 1435 DC Teaching ED 12/13 1436 Polyethylene Glycol 17 GM DAILY 12/13 1149 AC 12/13 PO 1319 Pravastatin Sodium 20 MG 1700 12/13 1700 DC PO Pravastatin Sodium 80 MG 1700 12/13 1700 AC 12/13 PO 1809 Senna/Docusate Sodium 2 TAB DAILY NEEDED PRN 12/13 1200 AC PO Zolpidem Tartrate 10 MG AT BEDTIME NEED.. 12/12 2115 AC PO Last 24 Hrs of Lab/Jabier Results Last 24 Hrs of Labs/Mics: Laboratory Tests 12/13/16 1400: Troponin I 0.02 12/13/16 0655: Anion Gap 11, Estimated GFR > 60, BUN/Creatinine Ratio 22.5, Lactic Acid 0.9, CBC w Diff MAN DIFF ORDERED, RBC 3.53 L, MCV 82.8, MCH 27.3, RDW 16.7 H, MPV 8.1, Gran % 89.3 H, Lymphocytes % 5.2 L, Monocytes % 5.2, Eosinophils % 0.2, Basophils % 0.1, Absolute Granulocytes 19.2 H, Segmented Neutrophils 81 H, Band Neutrophils 8 H, Absolute Lymphocytes 1.1 L, Lymphocytes 10 L, Monocytes 1 L, Absolute Monocytes 1.1 H, Absolute Eosinophils 0, Absolute Basophils 0, Platelet Estimate VERIFIED BY SMEAR, Normocytic RBCs VERIFIED, Normochromic RBCs VERIFIED, PUBS MCHC 32.9 L Assessment/Plan Assessment: Mr. Rudd is a 56 YO M current active smoker, with PMH of uncontrolled diabetes mellitus type 2, peripheral neuropathy, hypertension, hyperlipidemia, nonhealing ulcer of the left foot, was brought in by ambulance for fever up to 102.6, chills, painful and swollen left foot with drainage. Labs (WBC 21.8, ESR >130, CRP > 9) and imaging concerning for osteomyelitis, patient was taken to the OR by Dr. Sanchez on 12/12/16 for first ray resection. Subsequently transferred to post op. plan Osteomyelitis of left foot s/p resection * Unasyn 3000 mg every 6 started empirically * Follow-up for culture, blood culture * Weight-bearing status heel touch * PP: Dilaudid 1 mg IV every 4 when necessary severe pain,IV toradol for moderate pain, Tylenol 650 mg every 6 when necessary mild pain. * MS contin 15mg BID * Appreciate ID and podiatry input Peripheral vascular disease * Uncontrolled diabetic, actively smoking 2packs per day. * Duplex right lower extremity shows increased velocities in profunda femoris artery * we will obtain duplex of left lower extremity as well * Needs angiogram nonemergently Uncontrolled Diabetes mellitus (on oral hypoglycemics) with neuropathy * hemiglobin A1c of 8.4 * Insulin NovoLog tidac * We'll hold home glyburide and metformin * Continue Gabapentin 100 mg 4 times a day HIstory of Hypertension * Continue Lisinopril 10 mg daily History of Hyperlipidemia * Pravastatin 80 mg daily Chronic lower extremity edema, left more than right * Continue Lasix 40 mg daily Nicotine dependence * Nicotine patch 21 mg daily * Smokes 2 packs daily Sleep * Continue Zolpidem 10 mg at bedtime as needed Diet: heart healthy DVT ppx: Heparin subcutaneous and alps FULL CODE Problem List: 1. Diabetes 2. Osteomyelitis of left foot 3. Diabetic foot ulcer 4. Multiple open wounds of right lower extremity Pain Ratin Pain Location: left foot Pain Goal: Pain 4 or less Pain Plan: tylenol prn Dilaudid Toradol Tomorrow's Labs & Rationales: cbc to monitor white count Consulting Request: Consulting Specialty: Infectious Disease Consulting Physician: Dr. Chi Reason for Consult: Osteomyelitis GERMAINE PENDLETON,[facility] 12/13/16 1142: Attending MD Review Statement Attending Statement Attending MD Statement: examined this patient, discuss w/resident/PA/SEPTIC TANK CLEANER, agreed w/resident/PA/SE[employer]IC TANK CLEANER, reviewed EMR data (avail), discussed with nursing, discussed with case mgmt, amended to note Attending Assessment/Plan: Patient seen and examined. Lying in bed. Continues to complain of pain at the surgical site. Denies shortness of breath. Denies cough. Denies chest pain. He remains febrile overnight. His however hemodynamically stable. On examination he does not appear to be in any acute distress. Has bilateral lower extremity swelling 2-3+. Has intact dressing over the right foot he status post partial ray resection. The dressing is blood soaked. At the base of the right great toe is a chronic nondraining ulcer. There is no tenderness. There is no surrounding erythema. Distal pulses are not palpable bilateral lower extremity however this is primarily due to his body habitus. Problems: 1. Left foot osteomyelitis; status post partial ray resection postop day 1. 2. [id number] diabetes mellitus; poorly controlled 3. Hypertension 4. Chronic pain syndrome 5. Anemia. 6. Chronic ulcer base of right great toe. Plan: - Follow-up with the podiatry service regarding plans for repeat surgical intervention. -Follow-up blood cultures, bone culture and pathology. -ID consultation for recommendations regarding antibiotic duration. -Continue IV Unasyn for now. -Patient's last vascular evaluation was last year. At that time he appeared to have adequate blood supply. May need to reconsider repeat vascular surgery evaluation. Please follow-up with the podiatry service regarding this. -Patient has chronic ulcer the base of the right great toe. Recommend x-ray to rule out osteomyelitis. -Optimize pain control. Patient is on morphine 5090 g orally twice daily at baseline. Increase Dilaudid to 1 mg every 4 hours when necessary pain. Begin patient on anti-inflammatory therapy with Toradol IV. -Check stool guaiac. Monitor H&H closely. Check iron profile. -Monitor patient on insulin sliding scale while in the hospital. Upon discharge he would need better control of his diabetes. Patient admits to poor compliance with his primary care follow-up.
[2016-12-13 08:08] LABS: ABSOLUTE BASOPHIL COUNT 0 /CUMM (0.0-0.2); ABSOLUTE EOSINOPHIL COUNT 0 /CUMM (0.0-0.7); ABSOLUTE GRANULOCYTE CT 19.2 /CUMM (1.4-6.5); ABSOLUTE LYMPH COUNT 1.1 /CUMM (1.2-3.4); ABSOLUTE MONOCYTE COUNT 1.1 /CUMM (0.10-0.60); BASOPHIL % 0.1 % (0.0-2.0); EOSINOPHIL % 0.2 % (0-5); HEMATOCRIT 29.2 % (42-52); MEAN CORPUSCULAR HGB 27.3 PG (27.0-31.0); MEAN CORPUSCULAR HGB CONC 32.9 G/DL (33.0-37.0); MEAN CORPUSCULAR VOLUME 82.8 FL (80.0-94.0); MEAN PLATELET VOLUME 8.1 FL (7.4-10.4); RBC DISTRIBUTION WIDTH 16.7 % (11.5-14.5); RED BLOOD CELL CT 3.53 /CUMM (4.70-6.10); WHITE BLOOD CELL COUNT 21.5 /CUMM (4.8-10.8)
[2016-12-13 09:24] LABS: GRANULOCYTE % 89.3 % (42.2-75.2); PLATELET COUNT 335 /CUMM (130-400)
[2016-12-13 13:29] VITALS: BP 134/68
--- NOTE | 2016-12-13 13:44 | Event Note ---
Event Note Event Note: Rapid response called at 1:35pm as started desaturating and tachycardic. Situation Patient started desturating with tachycardia 106. Brief Patient is admitted with left foot osteomyelitis secondary to presumably uncontrolled diabetes and peripheral vascular disease. He underwent debridement yesterday. Possibly reactive to debridement. O/E afebrile, hypoxic - saturating well on 2L, mildly tachy 105. lungs are clear Assessment and plan In the setting of sudden hypoxia with tachycardia of 100's - PE need to be ruled out. we considered a venous doppler lower extermities which was negative. EKG is unremarkable, Trop negative. At this point we ruled out lung and cardiac conditions, closely monitor. Cautiously provide pain medications.
--- NOTE | 2016-12-13 14:52 | RADIOLOGY REPORT ---
EXAMINATION: XR PORTABLE CHEST CLINICAL INFORMATION: CHF. Hypoxia. COMPARISON: Chest x-ray 12/12/2016 TECHNIQUE: Portable frontal view of the chest was obtained. 1:55 PM FINDINGS: No significant abnormality is noted involving the heart, lungs, mediastinum, bony thorax or soft tissues. IMPRESSION: Unremarkable examination.
--- NOTE | 2016-12-13 15:43 | ULTRASOUND REPORT ---
EXAMINATION: US TRIPLEX OF LOWER EXTREMITIES, BILATERAL CLINICAL INFORMATION: Hypoxia. COMPARISON: Ultrasound of the right lower extremity veins 10/09/2015. TECHNIQUE: Color-flow triplex imaging with spectral analysis and compression Doppler were performed on the lower extremities. FINDINGS: Respiratory variation, normal compression and augmented flow are noted throughout the lower extremities. The visualized common femoral, femoral, profunda femoral, popliteal and midcalf peroneal and posterior tibial venous segments demonstrate no evidence of deep venous thrombosis. There are no Mckeon's cysts. IMPRESSION: Normal triplex scan without evidence of deep venous thrombosis involving the bilateral lower extremities.
--- NOTE | 2016-12-13 15:53 | NUR ---
MAIN CONTACT NUMBERS: DAUGHTER KENNEY [phone]. MARLYN [phone]. BROTHER YOSEF [phone]
[2016-12-13 15:54] VITALS: BP 120/82
--- NOTE | 2016-12-13 15:54 | NUR ---
PT ALERT ORIENTED ON RA 96%, DENIES SOB, DENIES PAIN OR DISCOMFORT. IST AT BEDSIDE AND USING. ORAL TEMP 99.5, 1-2+ EDEMA TO BLE, ELEVATED ON PILLOWS, DRESSING TO LEFT FOOT INTACT, SMALL AMT OLD BLOODY DRAINAGE TO GREAT TOE AMP AREA. PTS AND DAUGHTER AT BEDSIDE. XRAY BEING DONE OF FOOT AT THIS TIME. CALL FROM DR JAIN REGARDING MRI- MRI ORDERED BUT MACHINE IS CURRENTLY DOWN. WILL CONTINUE TO MONITOR.
--- NOTE | 2016-12-13 15:55 | NUR ---
RAPID RESPONSE CALLED BY DICTATING RN PATIENT FOUND TO BE TACHYCARDIC AND TACHYPNEIC. BP 134/68, HR 106-110, RECTAL TEMP 103.3, 89% RA. PATIENT RESPONDING APPROPRIATELY AND STATES THAT "I FEEL OKAY". HOWEVER PATIENT CONTINUES TO SWEAT PERFUSELY AND APPEARS TO BE LETHARGIC IN NO ACUTE DISTRESS OTHERWISE. THE RAPID TEAM AT THE BEDSIDE. VITALS REMAIN THE SAME MENTNIONED ABOVE. PATIENT CONTINUE TO DENY CHEST PAIN OR DIFFICULTY BREATHING. WILL CONT TO MONITOR
--- NOTE | 2016-12-13 16:15 | NUR ---
FOLLOW UP NOTE: SINCE THE RAPID RESPONSE, PATIENT CONTINUE TO REMAIN ALERT AND ORIENTED X3. PATIENT IS SATURATING 94% ON RA AT THIS TIME HE REFUSES OXYGEN TO DUE NASAL DRYNESS DESPITE HUMIDIFIER. PATIENT CONTINUES TO STATE THAT HE IS FEELING WELL. VSS ARE STABLE AT THIS TIME DOCUMENTED. TEMP 99.4. WILL CONT TO MONITOR CLOSELY.
--- NOTE | 2016-12-13 16:20 | RADIOLOGY REPORT ---
EXAMINATION: XR FOOT, RIGHT CLINICAL INFORMATION: Wound at the great toe. COMPARISON: None TECHNIQUE: 3 views of the right foot. FINDINGS: No bone destruction. No periosteal reaction. No radiographic evidence for osteomyelitis. Joint spaces are normal. There is a skin ulceration of the plantar surface of the great toe near the IP joint of the toe There is a plantar calcaneal spur measuring 7 mm. There is spur of the calcaneus at the insertion of the Achilles tendon. IMPRESSION: Skin ulceration plantar surface of great toe. No radiographic evidence for osteomyelitis.
--- NOTE | 2016-12-13 16:27 | ULTRASOUND REPORT ---
EXAMINATION: COLOR-FLOW DUPLEX IMAGING OF THE LEFT LOWER EXTREMITY ARTERIAL SYSTEM. CLINICAL INFORMATION: 56-year-old female with nonhealing left foot ulcer. Concern for peripheral arterial disease. COMPARISON: None RIGHT FEMORAL RUNOFF VELOCITIES: The right common femoral artery measures 119 cm/s and is triphasic. The right profunda femoral artery measures 91 cm/s and is triphasic. Right proximal superficial femoral artery measures 147 cm/s and is triphasic. Mid superficial femoral artery measures 114 cm/s and is triphasic. Distal right superficial femoral artery measures 326 cm/s and is biphasic. Right popliteal velocity measures 95 cm/s and is biphasic. Posterior tibial velocity is 49 cm/s and flow is biphasic. Anterior tibial velocity is 124 cm/s and flow is biphasic. Dorsal pedis artery not clearly visualized. IMPRESSION: Significantly elevated velocities within the distal right superficial femoral artery most consistent with hemodynamically significant stenosis. If clinically indicated, further evaluation with a CTA lower extremity runoff may be obtained.
--- NOTE | 2016-12-13 16:35 | NUR ---
DR TORRES AND DR JAIN IN TO SEE PT AT THIS TIME- AND DRAINED LEFT FOOT SURGICAL AREA- MODERATE AMT OF PUS AND SS DRAINAGE. IV DILAUDID ADMINISTERED AT THIS TIME PT COMPLAINING OF SEVERE PAIN TO FOOT. REDRESSED AT THIS TIME. WILL CONTINUE TO MONITOR.
--- NOTE | 2016-12-13 17:01 | Cons- Infect Disease ---
General Information and HPI Consulting Request Date of Consult: 12/13/16 Requested By: KWAKU HERRON M.D Reason for Consult: Left foot infection Source of Information: patient History of Present Illness: This is a 56-year-old man with diabetes and peripheral neuropathy with a nonhealing ulcer on the left great toe for at least the past 6 weeks, admitted on December 12 with several days of pain, swelling and erythema of the left great toe , extending up the left leg, associated with fevers and chills. On admission he was febrile to 100.5. Laboratory data revealed a white blood cell count of 22, 000, ESR greater than 130, BUN/creatinine 32 and 1.2, alk phosphatase 151, hemoglobin A1c 8.4. Chest x-ray was negative. X-ray of the left foot revealed increased cortical lucency along the medial aspect of the left great toe, at the base of the proximal phalanx of the left great toe as well as along the medial aspect of the head of the first metatarsal bone, with scattered foci of subcutaneous emphysema posterior to the ankle joint. He was taken to the OR for an I&D of a plantar space abscess and an open partial first ray resection of the left foot. Postop he was placed on Unasyn. He spiked a fever up to 103 this afternoon. He denies any pain in the left foot at this time. He was seen in conjunction with Podiatry this afternoon, who performed a bedside I&D with drainage of a significant amount of purulent material posterior to the medial malleolus. Allergies/Medications Allergies: Coded Allergies: NO KNOWN ALLERGIES (10/10/15) Home Med List: Furosemide 40 MG TABLET 1 TAB PO DAILY DIURETIC (Reported) Gabapentin 100 MG CAPSULE 1 CAP PO 4XDAILY NERVE PAIN (Reported) Glyburide 5 MG TABLET 1 TAB PO BID DM (Reported) Hydrocodone/Acetaminophen (Hydrocodon-Acetaminophn 10-325) 10 MG-325 MG TABLET 1 TAB PO 4XDAILY PAIN (Reported) Lisinopril 10 MG TABLET 1 TAB PO DAILY BP (Reported) Metformin HCl 1,000 MG TABLET 1 TAB PO BID DM (Reported) Morphine Sulfate (Morphine Sulfate ER) 15 MG TABLET.ER 1 TAB PO BID PAIN ( Reported) Pravastatin Sodium (Pravachol) 80 MG TABLET 1 TAB PO DAILY CHOLESTEROL ( Reported) Zolpidem Tartrate (Ambien) 10 MG TABLET 1 TAB PO PRN SLEEP (Reported) Past History Travel History Traveled to [place] past 21 day No Medical History Neurological: NONE EENT: NONE Cardiovascular: hypertension, hyperlipidemia Respiratory: NONE Gastrointestinal: NONE Hepatic: NONE Renal: NONE Musculoskeletal: NONE Psychiatric: NONE Endocrine: diabetes Blood Disorders: NONE Cancer(s): NONE 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 Psychosocial History Where Do You Live? Home Who Do You Live With? spouse Services at Home: None Primary Language: Pashto Smoking Status: Current Everyday Smoker (2ppd) ETOH Use: denies use Illicit Drug Use: denies illicit drug use Functional Ability ADLs Independent: dressing, eating, toileting, bathing. Ambulation: independent IADLs Independent: shopping, housework, finances, food prep, telephone, transportation , medication admin. Review of Systems Review of Systems All Other Systems: Reviewed and Negative Exam & Diagnostic Data Last 24 Hrs of Vital Signs/I&O Vital Signs Date Time Temp Pulse Resp B/P B/P Pulse O2 O2 Flow FiO2 Mean Ox Delivery Rate 12/13 1559 99.4 12/13 1554 99.4 88 24 120/82 94 Room Air 06 1353 103.3 / 1329 102.8 106 36 134/68 89 Room Air 12/13 1143 Room Air Room Air 12/13 1138 Room Air Room Air 12/13 1052 100.6 06/ 0841 102.0 06/02 0834 130/64 06/02 0650 98.4 98 20 136/60 93 Room Air 06/ 0128 100.9 06/02 0119 100.9 06/01 2324 114 224/90 06/ 2303 99.9 06/ 2300 99.9 114 20 224/90 97 Nasal 3.0L Cannula 12/12 1748 Room Air Room Air 12/12 1746 100.3 06/ 1746 100.3 93 20 130/63 93 Room Air Room Air Intake & Output 02 1600 /02 0800 06/02 0000 Intake Total 540 1000 Output Total 258 383 3455 Balance -800 -160 -400 Intake, IV 300 1000 Intake, Oral 240 0 Output, Urine 385 888 [id number] Patient 260 lb Weight Weight Reported by Patient Measurement Method Physical Exam Other Physical Findings: He is lethargic but arousable, in no acute distress. MAXIMUM TEMPERATURE 103.3. Skin multiple skin tags, with no rash. HEENT exam is negative. Neck is supple with no adenopathy. Lungs are clear. Heart regular rhythm with no murmur. Abdomen is obese, soft, nontender with positive bowel sounds. Back no CVA tenderness. Extremities left foot status post amputation of the great toe, with minimal erythema and with sutures intact; fluctuance and mild tenderness posterior to the left medial malleolus, with purulent drainage expressed, tender to palpation; chronic venous stasis changes to both lower extremities, with minimal erythema over both legs; right great toe plantar ulcer with no surrounding inflammation; decreased pulses bilaterally. Neuro neuropathy both feet. Last 24 Hours of Lab Results: Laboratory Tests 12/13 12/13 12/12 1400 0655 1902 Chemistry Sodium (137 - 145 mmol/L) 138 Potassium (3.5 - 5.1 mmol/L) 4.7 Chloride (98 - 107 mmol/L) 104 Carbon Dioxide (22 - 30 mmol/L) 23 Anion Gap (5 - 16) 11 BUN (9 - 20 mg/dL) 27 H Creatinine (0.7 - 1.2 mg/dL) 1.2 Estimated GFR (>60 ml/min) > 60 BUN/Creatinine Ratio (7 - 25 %) 22.5 Lactic Acid (0.7 - 2.1 mmol/L) 0.9 Cancelled Troponin I (<0.11 ng/ml) 0.02 Hematology CBC w Diff MAN DIFF ORDERED WBC (4.8 - 10.8 /CUMM) 21.5 H RBC (4.70 - 6.10 /CUMM) 3.53 L Hgb (14.0 - 18.0 G/DL) 9.6 L Hct (42 - 52 %) 29.2 L MCV (80.0 - 94.0 FL) 82.8 MCH (27.0 - 31.0 PG) 27.3 RDW (11.5 - 14.5 %) 16.7 H Plt Count (130 - 400 /CUMM) 335 MPV (7.4 - 10.4 FL) 8.1 Gran % (42.2 - 75.2 %) 89.3 H Lymphocytes % (20.5 - 51.1 %) 5.2 L Monocytes % (1.7 - 9.3 %) 5.2 Eosinophils % (0 - 5 %) 0.2 Basophils % (0.0 - 2.0 %) 0.1 Absolute Granulocytes (1.4 - 6.5 /CUMM) 19.2 H Segmented Neutrophils (42.2 - 75.2 %) 81 H Band Neutrophils (0.0 - 5.0 %) 8 H Absolute Lymphocytes (1.2 - 3.4 /CUMM) 1.1 L Lymphocytes (20.5 - 51.1 %) 10 L Monocytes (1.7 - 9.3 %) 1 L Absolute Monocytes (0.10 - 0.60 /CUMM) 1.1 H Absolute Eosinophils (0.0 - 0.7 /CUMM) 0 Absolute Basophils (0.0 - 0.2 /CUMM) 0 Platelet Estimate (ADEQUATE) VERIFIED BY SMEAR Normocytic RBCs VERIFIED Normochromic RBCs VERIFIED PUBS MCHC (33.0 - 37.0 G/DL) 32.9 L Last 24 Hours of Jabier Results: Blood cultures December 12 negative OR culture December 12 labeled bone left first toe positive for Staph aureus, sensitivities pending, Group G strep and diphtheroids Diagnostic Data Recent Imaging Findings: Chest x-ray negative. X-ray of the left foot revealed increased cortical lucency along the medial aspect of the left great toe, at the base of the proximal phalanx of the left great toe as well as along the medial aspect of the head of the first metatarsal bone, with scattered foci of subcutaneous emphysema posterior to the ankle joint. X-ray of the right foot December 13 reveals a skin ulceration on the plantar surface of the great toe with no evidence for osteomyelitis Arterial Dopplers of the left lower extremity December 13 reveals significant elevated velocities within the distal left superficial femoral artery consistent with hemodynamically significant stenosis Chest x-ray December 13 negative Bilateral lower extremity Dopplers December 13 negative Assessment/Plan Assessment/Plan Impression: This is a 56-year-old man with diabetes, with a chronic nonhealing plantar ulcer on the left great toe, admitted on December 12 with several days of pain, swelling and erythema of the left great toe and foot associated with fevers and chills, found on admission to be febrile with a leukocytosis, taken to the OR for a left partial first ray amputation, with a persistent fever and leukocytosis. Based on his x-ray and OR findings his infection appeared to extend posteriorly to the ankle. On my exam he appeared to have fluctuance around the medial malleolus and, after evaluation by Podiatry, a significant amount of purulent drainage was manually expressed, with improvement in his exam. This fluid likely explains his persistent fever and leukocytosis, but he may require a more formal drainage in the OR. His OR cultures are so far growing Staph aureus and Group G strep and he can be continued on Unasyn pending final cultures. It appears he does have vascular compromise and vascular surgery evaluation will be helpful. Suggestion: 1. Further drainage as needed per Podiatry 2. Follow-up OR cultures 3. Vascular surgery evaluation 4. Continue Unasyn pending above Consult Acknowledgment - Thank you for your consult request.
--- NOTE | 2016-12-13 17:16 | Cons- Vascular Surgery ---
General Information and HPI Consulting Request Date of Consult: 12/13/16 Requested By: KWAKU HERRON M.D History of Present Illness: Mr. carpio is a 56-year-old gentleman with history of diabetes, peripheral neuropathy, and PAD. His had a nonhealing left first toe ulcer for over 6 weeks. He presented to the hospital with fever chills and left foot pain. He underwent incision and drainage and partial first ray amputation by Dr. Sanchez. He is on IV antibiotics. He smokes 2 packs per day for many years. A venous ultrasound of the left leg showed no evidence of DVT. I was asked to see the patient regarding adequacy of blood flow to the left foot. Allergies/Medications Allergies: Coded Allergies: NO KNOWN ALLERGIES (10/10/15) Home Med List: Furosemide 40 MG TABLET 1 TAB PO DAILY DIURETIC (Reported) Gabapentin 100 MG CAPSULE 1 CAP PO 4XDAILY NERVE PAIN (Reported) Glyburide 5 MG TABLET 1 TAB PO BID DM (Reported) Hydrocodone/Acetaminophen (Hydrocodon-Acetaminophn 10-325) 10 MG-325 MG TABLET 1 TAB PO 4XDAILY PAIN (Reported) Lisinopril 10 MG TABLET 1 TAB PO DAILY BP (Reported) Metformin HCl 1,000 MG TABLET 1 TAB PO BID DM (Reported) Morphine Sulfate (Morphine Sulfate ER) 15 MG TABLET.ER 1 TAB PO BID PAIN ( Reported) Pravastatin Sodium (Pravachol) 80 MG TABLET 1 TAB PO DAILY CHOLESTEROL ( Reported) Zolpidem Tartrate (Ambien) 10 MG TABLET 1 TAB PO PRN SLEEP (Reported) Past History Medical History Neurological: NONE EENT: NONE Cardiovascular: hypertension, hyperlipidemia Respiratory: NONE Gastrointestinal: NONE Hepatic: NONE Renal: NONE Musculoskeletal: NONE Psychiatric: NONE Endocrine: diabetes Blood Disorders: NONE Cancer(s): NONE PILL MAKER/Reproductive: NONE Other Medical Hx: Cellulitis Peripheral neuropathy Surgical History Pertinent Surgical History: appendectomy Family History Relations & Conditions If Any: MOTHER (Diabetes). Psychosocial History Where Do You Live? Home Who Do You Live With? spouse Services at Home: None Primary Language: Macedonian Smoking Status: Current Everyday Smoker (2ppd) ETOH Use: denies use Illicit Drug Use: denies illicit drug use Functional Ability ADLs Independent: dressing, eating, toileting, bathing. Ambulation: independent IADLs Independent: shopping, housework, finances, food prep, telephone, transportation , medication admin. Review of Systems Review of Systems: Patient denies headache, dizziness, cough, palpitation, diarrhea or constipation Exam & Diagnostic Data Vital Signs and I&O Vital Signs Date Time Temp Pulse Resp B/P B/P Pulse O2 O2 Flow FiO2 Mean Ox Delivery Rate 12/13 1559 99.4 12/13 1554 99.4 88 24 120/82 94 Room Air 12/13 1353 103.3 12/13 1329 102.8 106 36 134/68 89 Room Air 12/13 1143 Room Air Room Air 12/13 1138 Room Air Room Air 12/13 1052 100.6 12/13 0841 102.0 12/13 0834 130/64 12/13 0650 98.4 98 20 136/60 93 Room Air 12/13 0128 100.9 12/13 0119 100.9 12/12 2324 114 224/90 12/12 2303 99.9 12/12 2300 99.9 114 20 224/90 97 Nasal 3.0L Cannula 12/12 1748 Room Air Room Air 12/12 1746 100.3 12/12 1746 100.3 93 20 130/63 93 Room Air Room Air Intake & Output 12/13 1600 12/13 0800 12/13 0000 12/12 1600 12/12 0800 12/12 0000 Intake Total 540 1000 Output Total 279 239 3346 Balance -800 -160 -400 Intake, IV 300 1000 Intake, Oral 240 0 Output, Urine 441 421 8479 Patient 260 lb 265 lb Weight Weight Reported by Patient Reported by Patient Measurement Method Physical Exam: Patient is alert and oriented 3 Cardiovascular: Regular rate and rhythm Lungs: Clear to auscultation bilaterally Abdomen: Soft, nontender nondistended Extremities: The left foot is dressed. The toes were expressed from the bandage are warm to touch. There are bilateral palpable femoral pulses. I'm unable to palpate pedal pulses on the right. Assessment/Plan Assessment/Plan 56-year-old man with sterile diabetes and active 2 pack per day smoker presented with sepsis from left foot infection. He underwent I&D and left first toe amputation by Dr. Sanchez. He has been afebrile the last the 2 shifts. He is hemodynamically stable. He is on Unasyn. Pulses are pending. Recommendations: Please obtain left lower extremity ARTERIAL duplex Continue with antibiotics Foot care by podiatry No urgent vascular surgery intervention is needed at this time. The patient will most likely need an angiogram in a nonurgent matter. Thank you for asking me to be involved in the care of this patient. Consult Acknowledgment - Thank you for your consult request. Attending MD Review Statement Attending Statement Attending MD Statement: examined this patient, discuss w/resident/PA/VISUAL MERCHANDISER
[2016-12-13 22:25] VITALS: BP 122/68
[2016-12-14 06:00] VITALS: BP 138/60
--- NOTE | 2016-12-14 08:40 | PN- Housestaff ---
VERA PENDLETON,KAMERON 12/14/16 0840: Subjective Follow-up For: Left foot osteomyelitis Subjective: Patient followed up and examined by me today. He is resting comfortably in his recliner, with his leg elevated, not in distress, vitals have been stable. His wound dressing was reinforced earlier today during the follow-up. Review of Systems Constitutional: Reports: no symptoms. Objective Last 24 Hrs of Vital Signs/I&O Vital Signs Date Time Temp Pulse Resp B/P B/P Pulse O2 O2 Flow FiO2 Mean Ox Delivery Rate 12/14 1552 98.0 85 20 130/70 96 12/14 0905 102 138/60 12/14 0701 100.3 12/14 0630 100.3 12/14 0600 101.7 102 18 138/60 93 Room Air 12/14 0544 101.7 12/13 2225 98.7 85 18 122/68 93 Intake & Output 12/14 1600 12/14 0800 12/14 0000 Intake Total 2100 780 Output Total 1100 Balance 1000 780 Intake, IV 500 300 Intake, Oral 1600 480 Number 0 0 Bowel Movements Output, Urine 1100 Patient 116.573 kg Weight Physical Exam General Appearance: Alert, Oriented X3, Cooperative, No Acute Distress Other Physical Findings: Examination findings not changed since yesterday. His left foot is wrapped with dressing, with NO SOAKAGE/DRAINAGE. Current Medications: Current Medications Sig/Zehra Start time Last Medication Dose Route Stop Time Status Admin Acetaminophen 1,000 MG ONCE ONE 12/14 0515 DC 12/14 N/A 1 UNIT IV 12/14 0529 0544 Acetaminophen 650 MG Q6P PRN 12/12 2115 AC 12/13 PO 0841 Ampicillin Sodium/ 3,000 MG Q6 12/12 2359 DC 12/14 Sulbactam Sodium IV 0743 Sodium Chloride 100 ML Docusate Sodium 100 MG DAILY NEEDED PRN 12/13 1200 AC PO Furosemide 40 MG DAILY 12/13 1000 AC 12/14 PO 0905 Gabapentin 100 MG 4 TIMES/DAY 12/13 1000 AC 12/14 PO 1743 Heparin Sodium 5,000 UNIT Q8 12/12 2200 AC 12/14 (Porcine) SC 1305 Hydromorphone HCl 1 MG Q4P PRN 12/13 1045 AC 12/14 IV 1140 Insulin Aspart 0 TIDAC 12/13 0800 AC 12/14 SC 1743 Ketorolac 30 MG Q6P PRN 12/13 1045 AC 12/14 Tromethamine IV 1622 Lisinopril 10 MG DAILY 12/12 2230 AC 12/14 PO 0905 Nicotine 21 MG DAILY 12/13 1000 AC 12/14 TOP 0905 Polyethylene Glycol 17 GM DAILY 12/13 1149 AC 12/14 PO 0905 Pravastatin Sodium 80 MG 1700 12/13 1700 AC 12/14 PO 1622 Senna/Docusate Sodium 2 TAB DAILY NEEDED PRN 12/13 1200 AC PO Vancomycin HCl 1,500 MG Q12H 12/14 1230 AC 12/14 Sodium Chloride 250 ML IV 1305 Vancomycin HCl 1,000 MG DAILY 12/14 1105 DC Sodium Chloride 250 ML IV Zolpidem Tartrate 10 MG AT BEDTIME NEED.. 12/12 2115 AC PO Last 24 Hrs of Lab/Jabier Results Last 24 Hrs of Labs/Mics: Laboratory Tests 12/14/16 1703: CBC w Diff NO MAN DIFF REQ, RBC 3.55 L, MCV 82.4, MCH 26.9 L, RDW 17.2 H, MPV 8.0, Gran % 82.8 H, Lymphocytes % 9.6 L, Monocytes % 6.5, Eosinophils % 0.9, Basophils % 0.2, Absolute Granulocytes 11.8 H, Absolute Lymphocytes 1.4, Absolute Monocytes 0.9 H, Absolute Eosinophils 0.1, Absolute Basophils 0, PUBS MCHC 32.7 L 12/14/16 0650: CBC w Diff Cancelled, WBC Cancelled, RBC Cancelled, Hgb Cancelled, Hct Cancelled , MCV Cancelled, MCH Cancelled, RDW Cancelled, Plt Count Cancelled, MPV Cancelled, PUBS MCHC Cancelled Microbiology 12/14 0720 BLOOD: Blood Culture - RECD 12/14 0650 BLOOD: Blood Culture - RECD Assessment/Plan Assessment: Mr. Rudd is a 56 YO M current active smoker, with PMH of uncontrolled diabetes mellitus type 2, peripheral neuropathy, hypertension, hyperlipidemia, nonhealing ulcer of the left foot, was brought in by ambulance for fever up to 102.6, chills, painful and swollen left foot with drainage. Labs (WBC 21.8, ESR >130, CRP > 9) and imaging concerning for osteomyelitis, patient was taken to the OR by Dr. Sanchez on 12/12/16 for first ray resection. Subsequently transferred to post op. plan Osteomyelitis of left foot s/p resection * Unasyn was changed to vancomycin as the patient is now growing staph aureus, and cannot be ruled out for MRSA currently. Patient has been changed to isolation as well. * WBC decreased to 14.3 from 21.5 today. For some unknown reason the morning sample drawn was never recorded in the lab and had to be reordered later in the afternoon. * Follow-up final culture * Weight-bearing status heel touch * PP: Dilaudid 1 mg IV every 4 when necessary severe pain,IV toradol for moderate pain, Tylenol 650 mg every 6 when necessary mild pain. * MS contin 15mg BID * Appreciate ID and podiatry input Peripheral vascular disease * Uncontrolled diabetic, actively smoking 2packs per day. * Duplex left lower extremity shows increased velocities in profunda femoris artery, which is suggestive of stenosis of distal right superficial femoral artery. This critical finding was shared with vascular surgeon Dr. Prather, who mentioned that the patient should go angiogram. Will decide on it on Friday. * Needs angiogram nonemergently Uncontrolled Diabetes mellitus (on oral hypoglycemics) with neuropathy * hemiglobin A1c of 8.4 * Insulin NovoLog tidac * We'll hold home glyburide and metformin * Continue Gabapentin 100 mg 4 times a day HIstory of Hypertension * Continue Lisinopril 10 mg daily History of Hyperlipidemia * Pravastatin 80 mg daily Chronic lower extremity edema, left more than right * Continue Lasix 40 mg daily Nicotine dependence * Nicotine patch 21 mg daily * Smokes 2 packs daily Sleep * Continue Zolpidem 10 mg at bedtime as needed Diet: heart healthy DVT ppx: Heparin subcutaneous and alps FULL CODE Problem List: 1. Osteomyelitis of left foot 2. Diabetic foot ulcer Pain Ratin Pain Location: left foot Pain Goal: Pain 4 or less Pain Plan: prn Tomorrow's Labs & Rationales: CBC Consulting Request: Consulting Specialty: Infectious Disease Consulting Physician: Dr. Chi Reason for Consult: Osteomyelitis NICOL PENDLETON,[facility] 12/14/16 1224: Attending MD Review Statement Attending Statement Attending MD Statement: examined this patient, discuss w/resident/PA/RESTAURANT AND BAR MANAGER, agreed w/resident/PA/RESTAURANT AND BAR MANAGER, discussed with family, reviewed EMR data (avail), discussed with nursing, discussed with case mgmt, reviewed images, amended to note Attending Assessment/Plan: Patient sitting comfortably on the recliner. Still spiking fevers. Most seen by Dr. Sanchez last night, he performed I&D at bedside. Patient reports of improvement in his foot pain following the I&D last night. Appreciate vascular input. Recommendations 1. Culture results are positive for staph aureus, ?MRSA as according to the patient and Dr. Sanchez drained pus from his foot night , patient will need vancomycin. [facility] Follow up ID for further recommendations. 2. Vascular has seen the patient last night, no urgent vascular surgery interventions needed at this time. Please make sure you communicate with Dr. Prather about patient's Doppler results. 3. Ensure adequate pain control. 4. CBC is still pending follow-up CBC.
[2016-12-14 15:52] VITALS: BP 130/70
[2016-12-14 17:45] LABS: ABSOLUTE BASOPHIL COUNT 0 /CUMM (0.0-0.2); ABSOLUTE EOSINOPHIL COUNT 0.1 /CUMM (0.0-0.7); ABSOLUTE GRANULOCYTE CT 11.8 /CUMM (1.4-6.5); ABSOLUTE LYMPH COUNT 1.4 /CUMM (1.2-3.4); ABSOLUTE MONOCYTE COUNT 0.9 /CUMM (0.10-0.60); BASOPHIL % 0.2 % (0.0-2.0); EOSINOPHIL % 0.9 % (0-5); GRANULOCYTE % 82.8 % (42.2-75.2); HEMATOCRIT 29.2 % (42-52); MEAN CORPUSCULAR HGB 26.9 PG (27.0-31.0); MEAN CORPUSCULAR HGB CONC 32.7 G/DL (33.0-37.0); MEAN CORPUSCULAR VOLUME 82.4 FL (80.0-94.0); PLATELET COUNT 335 /CUMM (130-400); RBC DISTRIBUTION WIDTH 17.2 % (11.5-14.5); RED BLOOD CELL CT 3.55 /CUMM (4.70-6.10); WHITE BLOOD CELL COUNT 14.3 /CUMM (4.8-10.8)
[2016-12-14 22:18] VITALS: BP 142/60
[2016-12-15 07:01] VITALS: BP 150/60
[2016-12-15 08:52] LABS: ABSOLUTE BASOPHIL COUNT 0 /CUMM (0.0-0.2); ABSOLUTE EOSINOPHIL COUNT 0.2 /CUMM (0.0-0.7); ABSOLUTE GRANULOCYTE CT 13.4 /CUMM (1.4-6.5); ABSOLUTE LYMPH COUNT 1.8 /CUMM (1.2-3.4); ABSOLUTE MONOCYTE COUNT 0.9 /CUMM (0.10-0.60); BASOPHIL % 0.3 % (0.0-2.0); EOSINOPHIL % 1.3 % (0-5); HEMATOCRIT 28.5 % (42-52); MEAN CORPUSCULAR HGB 27.1 PG (27.0-31.0); MEAN CORPUSCULAR VOLUME 82.2 FL (80.0-94.0); MEAN PLATELET VOLUME 8.7 FL (7.4-10.4); PLATELET COUNT 338 /CUMM (130-400); RBC DISTRIBUTION WIDTH 17.5 % (11.5-14.5); RED BLOOD CELL CT 3.47 /CUMM (4.70-6.10); WHITE BLOOD CELL COUNT 16.3 /CUMM (4.8-10.8)
--- NOTE | 2016-12-15 09:47 | PN- Infect Dx ---
Subjective Subjective: MAXIMUM TEMPERATURE 100. He feels well with minimal pain in the left foot. Objective Last 24 Hrs of Vital Signs/I&O Vital Signs Date Time Temp Pulse Resp B/P B/P Pulse O2 O2 Flow FiO2 Mean Ox Delivery Rate 12/15 0750 100.0 12/15 0701 100.0 79 20 150/60 93 Room Air 12/14 2218 99.5 89 20 142/60 96 Room Air 12/14 1552 98.0 85 20 130/70 96 Intake & Output 12/15 1600 12/15 0800 12/15 0000 Intake Total 900 500 Output Total 600 Balance 300 500 Intake, IV 300 Intake, Oral 600 500 Number 1 Bowel Movements Output, Urine 600 Physical Exam Other Physical Findings: He appears comfortable in no acute distress Lungs are clear Heart regular rhythm with no murmur Extremities left foot dressing intact; chronic venous stasis changes with 1+ edema both lower extremities Results Last 24 Hours of Lab Results: Laboratory Tests 12/15 12/14 0735 1703 Hematology CBC w Diff NO MAN DIFF REQ NO MAN DIFF REQ WBC (4.8 - 10.8 /CUMM) 16.3 H 14.3 H RBC (4.70 - 6.10 /CUMM) 3.47 L 3.55 L Hgb (14.0 - 18.0 G/DL) 9.4 L 9.5 L Hct (42 - 52 %) 28.5 L 29.2 L MCV (80.0 - 94.0 FL) 82.2 82.4 MCH (27.0 - 31.0 PG) 27.1 26.9 L RDW (11.5 - 14.5 %) 17.5 H 17.2 H Plt Count (130 - 400 /CUMM) 338 335 MPV (7.4 - 10.4 FL) 8.7 8.0 Gran % (42.2 - 75.2 %) 82.0 H 82.8 H Lymphocytes % (20.5 - 51.1 %) 10.9 L 9.6 L Monocytes % (1.7 - 9.3 %) 5.5 6.5 Eosinophils % (0 - 5 %) 1.3 0.9 Basophils % (0.0 - 2.0 %) 0.3 0.2 Absolute Granulocytes (1.4 - 6.5 /CUMM) 13.4 H 11.8 H Absolute Lymphocytes (1.2 - 3.4 /CUMM) 1.8 1.4 Absolute Monocytes (0.10 - 0.60 /CUMM) 0.9 H 0.9 H Absolute Eosinophils (0.0 - 0.7 /CUMM) 0.2 0.1 Absolute Basophils (0.0 - 0.2 /CUMM) 0 0 PUBS MCHC (33.0 - 37.0 G/DL) 33.0 32.7 L Last 24 Hours of Jabier Results: OR culture December 12 left first toe bone positive for MRSA, Enterococcus, sensitivities pending, Group G strep, Group F strep and diphtheroids Blood cultures December 12 negative Blood cultures December 14 negative Assessment/Plan Impression: Improving on Vancomycin for a polymicrobial osteomyelitis of the left foot, with MRSA isolated from the OR cultures along with other gram-positive organisms, now 3 days status post left partial first ray amputation, with extension of infection posteriorly to the heel and medial malleolar area. The isolation of diphtheroids is of unclear significance and should not require treatment. His temperatures are lower grade and white blood cell count is down, though slightly increased from yesterday, suggesting the possibility of a persistent infection within the foot that may warrant further drainage/debridement. Suggestion: 1. Further drainage/debridement of the left foot per Podiatry 2. Follow-up Vascular surgery recommendations 3. Continue Vancomycin
--- NOTE | 2016-12-15 12:26 | PN- Att Addend ---
Attending Addendum Attending Brief Note 56-year-old male with history of uncontrolled diabetes type 2, peripheral neuropathy, peripheral vascular disease, nonhealing ulcer of left foot, osteomyelitis of left foot status post open incision and drainage/partial first ray resection left foot by Dr. Sanchez currently being treated for polymicrobial including MRSA osteomyelitis of left foot. Patient sitting comfortably on the recliner. His pain has improved. White count 16.3 which has trended up compared to yesterday 14.3. Tooth spiking low-grade fevers of Tmax 100. Recommendations: 1. Continue vancomycin. Follow-up ID recommendations. 2. Dr. Sanchez may need to revisit the foot, for ? I & D, to see if there is any reaccumulation of the abscess. 3. Make sure the arterial Doppler results are communicated with vascular, and for further interventions. 4. Ensure adequate pain control
[2016-12-15 14:07] VITALS: BP 140/80
[2016-12-15 22:27] VITALS: BP 142/80
[2016-12-16 05:24] VITALS: BP 170/82
[2016-12-16 06:49] VITALS: BP 158/78
--- NOTE | 2016-12-16 07:35 | PN- Housestaff ---
MALIKA PENDLETON,ENDER 12/16/16 0734: Subjective Follow-up For: Left foot Osteomyelitis Subjective: I saw the patient today morning He is very frustrated regarding being nothing by mouth, wants to know time of the procedure. overnight he had a fever of 100.4,tachycardic. I started him on diet after speaking to Dr. Mclaughlin regarding postponement of the procedures to Friday. Started on diet, nothing by mouth tonight. he had questions regarding follow-up with pain management clinic as he had an appointment on December 19. Review of Systems Constitutional: Reports: see HPI. Objective Last 24 Hrs of Vital Signs/I&O Vital Signs Date Time Temp Pulse Resp B/P B/P Pulse O2 O2 Flow FiO2 Mean Ox Delivery Rate 12/16 0649 99.7 83 20 158/78 97 Room Air 12/16 0524 100.4 79 20 170/82 95 Room Air 12/15 2227 98.8 80 20 142/80 98 Room Air / 1407 98.2 78 20 140/80 97 06/04 1104 80 145/64 12/15 0849 98.0 / 0750 100.0 Intake & Output 12/16 0800 / 0000 12/15 1600 Intake Total 1120 250 Output Total 400 500 2 Balance -400 620 248 Intake, IV 120 250 Intake, Oral 1000 Output, Stool 2 Output, Urine 400 500 Physical Exam General Appearance: Alert, Oriented X3, Cooperative Skin: No Rashes, No Breakdown, dressing on left foot region HEENT: Atraumatic, PERRLA Neck: Supple Cardiovascular: Normal S1, Normal S2 Lungs: Clear to Auscultation, Normal Air Movement Abdomen: Normal Bowel Sounds, Soft, No Tenderness Neurological: Strength at 5/5 X4 Ext, Cranial Nerves 3-12 NL Current Medications: Current Medications Sig/Zehra Start time Last Medication Dose Route Stop Time Status Admin Acetaminophen 650 MG .STK-MED ONE 12/15 0739 DC PO 12/15 0740 Acetaminophen 650 MG Q6P PRN 12/12 2115 AC 12/15 PO 0750 Docusate Sodium 100 MG DAILY NEEDED PRN 12/13 1200 AC PO Furosemide 40 MG DAILY 12/13 1000 AC 12/15 PO 1100 Gabapentin 100 MG 4 TIMES/DAY 12/13 1000 AC / PO 2105 Heparin Sodium 5,000 UNIT Q8 12/12 2200 AC 12/16 (Porcine) SC 0532 Hydromorphone HCl 1 MG Q4P PRN 12/13 1045 AC 12/16 IV 0456 Insulin Aspart 0 TIDAC 12/13 0800 DC 12/15 SC 12/16 0000 1658 Insulin Human Regular 0 TIDAC/HS 12/15 2100 AC 12/15 SC 2105 Ketorolac 30 MG Q6P PRN 12/13 1045 AC 12/15 Tromethamine IV 1753 Lisinopril 10 MG DAILY 12/12 2230 AC 12/15 PO 1104 Nicotine 21 MG DAILY 12/13 1000 AC 12/15 TOP 0536 Polyethylene Glycol 17 GM DAILY 12/13 1149 AC 12/15 PO 1103 Pravastatin Sodium 80 MG 1700 12/13 1700 AC 12/15 PO 1659 Senna/Docusate Sodium 2 TAB DAILY NEEDED PRN 12/13 1200 AC PO Vancomycin HCl 1,500 MG Q12H 12/14 1230 AC 12/16 Sodium Chloride 250 ML IV 0041 Zolpidem Tartrate 10 MG AT BEDTIME NEED.. 12/12 2115 AC PO Last 24 Hrs of Lab/Jabier Results Last 24 Hrs of Labs/Mics: Laboratory Tests 12/16/16 0705: Anion Gap 12, Estimated GFR 57 L, BUN/Creatinine Ratio 34.6 H, CBC w Diff NO MAN DIFF REQ, RBC 3.62 L, MCV 82.1, MCH 26.7 L, RDW 17.5 H, MPV 8.3, Gran % 81.9 H, Lymphocytes % 10.0 L, Monocytes % 5.5, Eosinophils % 2.2, Basophils % 0.4, Absolute Granulocytes 11.2 H, Absolute Lymphocytes 1.4, Absolute Monocytes 0.8 H, Absolute Eosinophils 0.3, Absolute Basophils 0.1, PUBS MCHC 32.5 L Assessment/Plan Assessment: Mr. Rudd is a 56 YO M current active smoker, with PMH of uncontrolled diabetes mellitus type 2, peripheral neuropathy, hypertension, hyperlipidemia, nonhealing ulcer of the left foot, was brought in by ambulance for fever up to 102.6, chills, painful and swollen left foot with drainage. Labs (WBC 21.8, ESR >130, CRP > 9) and imaging concerning for osteomyelitis, patient was taken to the OR by Dr. Sanchez on 12/12/16 for first ray resection. Subsequently transferred to post op. plan Osteomyelitis of left foot s/p resection * IV vancomycin for MRSA, Vanco trough level with next dose. * WBC decreased to 13.6 from 21.5 today. * Follow-up final culture * Weight-bearing status heel touch * PP: Dilaudid 1 mg IV every 3 when necessary severe pain for breakthrough, morphine sulfate (MS Contin)15 twice a day, Tylenol for mild pain * Nothing by mouth overnight for repeat debridement tomorrow. * Appreciate ID and podiatry input Peripheral vascular disease * Uncontrolled diabetic, actively smoking 2 packs per day. * Duplex left lower extremity shows increased velocities in profunda femoris artery, which is suggestive of stenosis of distal right superficial femoral artery. This critical finding was shared with vascular surgeon Dr. Prather, who mentioned that the patient should go angiogram. Will decide on it on Friday. * Needs angiogram nonemergently Uncontrolled Diabetes mellitus (on oral hypoglycemics) with neuropathy * hemiglobin A1c of 8.4 * Insulin NovoLog tidac * We'll hold home glyburide and metformin * Continue Gabapentin 100 mg 4 times a day HIstory of Hypertension * Continue Lisinopril 10 mg daily History of Hyperlipidemia * Pravastatin 80 mg daily Chronic lower extremity edema, left more than right * Continue Lasix 40 mg daily Nicotine dependence * Nicotine patch 21 mg daily * Smokes 2 packs daily Sleep * Continue Zolpidem 10 mg at bedtime as needed Diet: heart healthy DVT ppx: Heparin subcutaneous and alps FULL CODE Problem List: 1. Osteomyelitis of left foot 2. Diabetic foot ulcer 3. Multiple open wounds of right lower extremity 4. Diabetes Pain Ratin Pain Location: left foot Pain Goal: Pain 4 or less Pain Plan: Tyleonol prn Dilaudid Morphine Sr 15mg BID Tomorrow's Labs & Rationales: cbc to monitor white count Consulting Request: Consulting Specialty: Infectious Disease Consulting Physician: Dr. Chi Reason for Consult: Osteomyelitis OMAR SWEET MD 12/16/16 1818: Attending MD Review Statement Attending Statement Attending MD Statement: examined this patient, discuss w/resident/PA/GYM TEACHER, agreed w/resident/PA/GYM TEACHER, reviewed EMR data (avail) Attending Assessment/Plan: 56M PMH HTN, HLD, T2DM, diabetic peripheral polyneuropathy admitted with sepsis secondary to acute osteomyelitis of the left foot s/p incision and drainage on by podiatry, with wound cultures growing mRSA and polymicrobial organisms. Temp 100.7 today. Patient doing well. Pain controlled. Arterial doppler showing right femoral artery stenosis. 1. Sepsis secondary to mRSA (resolved) 2. Acute osteomyelitis of left foot 3. Right SFA stenosis 4. Peripheral arterial disease 5. T2DM with diabetic polyneuropathy Plan - Continue on general medicine - Continue Vancomycin - Follow cultures - Follow ID, podiatry, vascular recommendations - Will go to OR tomorrow for revision - Monitor fingerstick levels - Continue home medications - DVT PPx
[2016-12-16 08:17] LABS: ABSOLUTE BASOPHIL COUNT 0.1 /CUMM (0.0-0.2); ABSOLUTE EOSINOPHIL COUNT 0.3 /CUMM (0.0-0.7); ABSOLUTE GRANULOCYTE CT 11.2 /CUMM (1.4-6.5); ABSOLUTE LYMPH COUNT 1.4 /CUMM (1.2-3.4); ABSOLUTE MONOCYTE COUNT 0.8 /CUMM (0.10-0.60); BASOPHIL % 0.4 % (0.0-2.0); EOSINOPHIL % 2.2 % (0-5); GRANULOCYTE % 81.9 % (42.2-75.2); HEMATOCRIT 29.8 % (42-52); MEAN CORPUSCULAR HGB 26.7 PG (27.0-31.0); MEAN CORPUSCULAR HGB CONC 32.5 G/DL (33.0-37.0); MEAN CORPUSCULAR VOLUME 82.1 FL (80.0-94.0); MEAN PLATELET VOLUME 8.3 FL (7.4-10.4); PLATELET COUNT 337 /CUMM (130-400); RBC DISTRIBUTION WIDTH 17.5 % (11.5-14.5); RED BLOOD CELL CT 3.62 /CUMM (4.70-6.10); WHITE BLOOD CELL COUNT 13.6 /CUMM (4.8-10.8)
[2016-12-16 14:09] VITALS: BP 130/62
--- NOTE | 2016-12-16 17:01 | PN- Infect Dx ---
Subjective Subjective: MAXIMUM TEMPERATURE 100.4. He notes some discomfort in the left foot but is overall improved. Objective Last 24 Hrs of Vital Signs/I&O Vital Signs Date Time Temp Pulse Resp B/P B/P Pulse O2 O2 Flow FiO2 Mean Ox Delivery Rate 12/16 1409 98.4 68 18 130/62 96 / 1142 Room Air Room Air 12/16 0944 80 140/80 06/ 0649 99.7 83 20 158/78 97 Room Air 12/16 0524 100.4 79 20 170/82 95 Room Air 12/15 2227 98.8 80 20 142/80 98 Room Air Intake & Output 12/16 1600 06/05 0800 06/ 0000 Intake Total 750 1120 Output Total 1150 500 Balance 750 -1150 620 Intake, IV 250 120 Intake, Oral 500 1000 Number 1 Bowel Movements Output, Urine 1150 500 Physical Exam Other Physical Findings: He appears comfortable in no acute distress Extremities left foot dressing intact Results Last 24 Hours of Lab Results: Laboratory Tests 12/16 07 Chemistry Sodium (137 - 145 mmol/L) 138 Potassium (3.5 - 5.1 mmol/L) 4.7 Chloride (98 - 107 mmol/L) 101 Carbon Dioxide (22 - 30 mmol/L) 24 Anion Gap (5 - 16) 12 BUN (9 - 20 mg/dL) 45 H Creatinine (0.7 - 1.2 mg/dL) 1.3 H Estimated GFR (>60 ml/min) 57 L BUN/Creatinine Ratio (7 - 25 %) 34.6 H Hematology CBC w Diff NO MAN DIFF REQ WBC (4.8 - 10.8 /CUMM) 13.6 H RBC (4.70 - 6.10 /CUMM) 3.62 L Hgb (14.0 - 18.0 G/DL) 9.7 L Hct (42 - 52 %) 29.8 L MCV (80.0 - 94.0 FL) 82.1 MCH (27.0 - 31.0 PG) 26.7 L RDW (11.5 - 14.5 %) 17.5 H Plt Count (130 - 400 /CUMM) 337 MPV (7.4 - 10.4 FL) 8.3 Gran % (42.2 - 75.2 %) 81.9 H Lymphocytes % (20.5 - 51.1 %) 10.0 L Monocytes % (1.7 - 9.3 %) 5.5 Eosinophils % (0 - 5 %) 2.2 Basophils % (0.0 - 2.0 %) 0.4 Absolute Granulocytes (1.4 - 6.5 /CUMM) 11.2 H Absolute Lymphocytes (1.2 - 3.4 /CUMM) 1.4 Absolute Monocytes (0.10 - 0.60 /CUMM) 0.8 H Absolute Eosinophils (0.0 - 0.7 /CUMM) 0.3 Absolute Basophils (0.0 - 0.2 /CUMM) 0.1 PUBS MCHC (33.0 - 37.0 G/DL) 32.5 L Last 24 Hours of Jabier Results: Blood cultures 2 December 12 and December 14 remain negative Assessment/Plan Impression: Stable on Vancomycin Day 2 of treatment for a polymicrobial osteomyelitis of the left foot, with MRSA isolated from the OR cultures along with other gram- positive organisms, now 4 days status post left partial first ray amputation, with extension of infection posteriorly to the heel and medial malleolar area. His temperatures remain lower grade and white blood cell count remains elevated, though decreased, and suspect that he has residual infection within the left foot. He is scheduled for a return to the OR in the a.m. for further debridement/drainage. Suggestion: 1. Await return to the OR in the a.m. per Podiatry 2. Vascular surgery follow-up regarding the arterial Doppler results 3. Vancomycin trough level with his next dose 4. Continue Vancomycin
--- NOTE | 2016-12-16 17:16 | Discharge Summary ---
Visit Information Visit Dates Admission Date: 12/12/16 Discharge Date: 12/27/16 Hospital Course Course Attending Physician: Phil SWEET YIANNIS Primary Care Physician: Madalyn BATISTA MD MARK Consulting Request: Consulting Specialty: Infectious Disease Consulting Physician: Dr. Chi Reason for Consult: Osteomyelitis Hospital Course: The patient is a 56-year-old male with past medical history significant for diabetes, current active smoker, peripheral neuropathy, hypertension, hyperlipidemia, nonhealing ulcer of the left foot and previous osteomyelitis who was brought to the ER for worsening left foot pain and discharge from his left foot ulcer. Patient had significant fever, leukocytosis and a worse looking wound on examination in the ER and was directly taken to OR. Vital signs on presentation showed temp of 100.5F, pulse 95bpm, BP 170/60 mmhg, PO2 95% on room air. Physical Exam on presentation General Appearance: Oriented X3, Cooperative, No Acute Distress, lethargic Skin: chronic edema and erythema of both lower extremities left foot wrapped post surgery left big toe now amputated Skin: Temp/Moisture Exam: Warm/Dry Sepsis Skin Exam (color): Normal for Ethnicity HEENT: Atraumatic, PERRLA, EOMI, dry mucous membrane Neck: Supple, No JVD, +2 Carotid Pulse wo Bruit, No LAD Lymphatic: Axillary nl, Cervical nl Cardiovascular: Regular Rate, Normal S1, Normal S2, No Murmurs, Gallops, Rubs Lungs: not taking deep breaths, hence decreased breath sound Abdomen: Normal Bowel Sounds, Soft, No Tenderness Neurological: Normal Speech Extremities: bilateral pitting edema left more than right (chronic as per patient) , left big toe amputated Vascular: Normal Pulses, Pulses Symmetrical Patient underwent incision and drainage, debridement x 2 with first ray amputation of his left foot. An arterial ultrasound of his left lower extremity showed severe stenosis of the left SFA. He had blood cultures which remained negative on admission, but intraoperative bone cultures grew multiple organisms including diphtheroids, MRSA, enterococcus, beta Streptococcus group G and beta strep group F. His baseline ESR was >130 mm/hr and remainded so throughout the admission. He was started on IV vancomycin which was dosed according to trough levels. He had repeat debridement of his left foot two times with repeat culture growing Pseudomonas and Citrobacter in addition to MRSA and Enterococcus. He was started on IV Zosyn and IV vancomycin for these infections. He also had vascular surgery with an angioplasty/stent of his left SFA, angioplasty of left tibioperoneal trunk, via right groin percutaneous access. After the vascular surgery the >50 % stenosis of his left SFA was resolved with resultant brisk flow on intraoperative angiogram. He also had angioplasty of the diffuse stenosis in his left tibioperoneal trunk with resultant resolution of the stenosis after the procedure. He was given medications for pain which included Dilaudid 1 mg IV every 3 hours when necessary for severe pain, and PO MS Contin 30mg Q 8 hrs. His pain medications were adjusted and finally changed to fenatanyl patch 75 MCG/hr and MSIR 15 mg Q4 hours PRN for pain. He had wound vac placed by Supervisor Lens Generating, Dr. Sanchez and was discharged to the short term rehab facility. On account of his poor renal function, his vancomycin will be dosed 1 GRAM Q12 hours. He should have a vancomycin trough level drawn just before the morning dose on 12/28/16. His vancomycin trough level result should be sent to his primary care provider for necessary adjustments to his dosing regimen. He is Weight bearing status heel touch on LEFT FOOT ONLY TO COMMODE WITH WALKER and non weight bearing on left foot at all other times. His hemiglobin A1c was 8.4 on admission. He was placed on novolog sliding scale and levemir for his diabetes and his metformin and glyburide home medications were discontinued due to their risks in chronic kidney disease. Complications: none Allergies: Coded Allergies: NO KNOWN ALLERGIES (10/10/15) Significant Procedures: Podiatry surgery 1 open incision and drainage deep to the deep fascia with exposure of the flexor tendon and tendon sheath multiple sites left foot 2 open partial first ray resection left foot 3 intraoperative administration of ankle block anesthesia 4 excisional debridement Vascular surgery 1. Ultrasound-guided right common femoral artery access 2. Aortogram 3. Third order left leg angiogram 4. Angioplasty of left SFA 5. Stenting of left SFA 6. Angioplasty of left tibioperoneal trunk Pertinent Lab Results: X-ray left foot: A soft tissue defect along the medial aspect of the left foot, adjacent to the first metatarsophalangeal joint. Interval increased cortical lucency along the medial aspect of the left great toe, specifically along the medial aspect of the base of the proximal phalanx of the left great toe as well as along the medial aspect of the head of the first metatarsal bones. These findings are suspicious for acute osteomyelitis. There are scattered foci of subcutaneous emphysema posterior to the ankle joint. CXR: No acute pulmonary process. Disposition Summary Disposition Principal Diagnosis: 1. Left foot osteomyelitis with secondary cellulitis 2. Peripheral vascular disease with stenosis of left SFA and left tibioperoneal trunk Additional Diagnosis: 3. Uncontrolled diabetes 4. Chronic kidney disease 5. History of HTN 6. HLD 7. Smoker Discharge Disposition: SNF Discharge Instructions General Discharge Information Code Status: Full Code Patient's Diet: Diabetic diet Patient's Activity: Weight bearing status heel touch on LEFT FOOT ONLY TO COMMODE WITH WALKER and non weight bearing to left foot at all other times. Follow-Up Instructions/Appts: 1. Please follow-up with your primary care physician within 7 days of discharge. 2. Please inform your primary care physician of this admission to the hospital. 3. Please inform the primary for this care physician of the treatment administered to you. 4. Please follow-up with the kindergarten paraprofessional within 7 days. We have provided you referral. 5. Please continue taking your antibiotics vancomycin and zosyn until you complete 4 full weeks on January 16, 2017. 6. Please check your vancomycin trough level just before your morning vancomycin dose on 12/28/16 and send the result to your PCP to adjust your vancomycin dosage. 7. Please have a Vancomycin trough level drawn every week after that 8. Please have a CBC drawn every week. 9. Please have a BEP (with BUN/Cr) drawn every week. 10. Please have a sedimentation rate (ESR) drawn every week. 11. Forward all lab results to your PCP for further action. Medications at Discharge Discharge Medications: Stop taking the following medications: Metformin HCl (Metformin HCl) 1,000 MG TABLET ORAL TWICE DAILY Qty = 60 Glyburide (Glyburide) 5 MG TABLET ORAL TWICE DAILY Qty = 180 Furosemide (Furosemide) 40 MG TABLET ORAL DAILY Qty = 30 Continue taking these medications: Lisinopril (Lisinopril) 10 MG TABLET 1 Tablet ORAL DAILY Qty = 30 Hydrocodone/Acetaminophen (Hydrocodon-Acetaminophn 10-325) 10 MG-325 MG TABLET 1 Tablet ORAL 4XDAILY Qty = 120 Morphine Sulfate (Morphine Sulfate ER) 15 MG TABLET.ER 1 Tablet ORAL TWICE DAILY Qty = 60 Pravastatin Sodium (Pravachol) 80 MG TABLET 1 Tablet ORAL DAILY Gabapentin (Gabapentin) 100 MG CAPSULE 1 Capsule ORAL 4XDAILY Qty = 120 Zolpidem Tartrate (Ambien) 10 MG TABLET 1 Tablet ORAL as needed for SLEEP Start taking the following new medications: Fentanyl Citrate (Duragesic) 75 MCG/HOUR PATCH.TD72 75 Microgram On the skin Q72H Qty = 2 No Refills Insulin Aspart (Novolog) 100 UNIT/ML VIAL 0 Inject into fatty tissue 3 TIMES DAILY BEFORE MEALS Qty = 1 No Refills Instructions: BEFORE MEALS Blood Insulin Sugar Units <80 0 81-150 0 151-200 2 201-250 4 251-300 6 301-350 8 351-400 10 >400 12 units and Call Doctor Insulin Detemir (Levemir) 100 UNIT/ML VIAL 10 Unit Inject into fatty tissue TWICE DAILY Qty = 1 No Refills Instructions: Please take BID for diabetes . Vancomycin/0.9 % Sod Chloride (Vanco 1 Gram/250 Ml-0.9% NaCl) 1 GRAM/250 ML PLAST..BAG 1 Gram INTRAVEN TWICE DAILY Qty = 42 No Refills Piperacillin Sodium/Tazobactam (Piperacil-Tazobact 3.375 Gm Vl) 3.375 GRAM VIAL 3.375 Gram INTRAVEN EVERY SIX HOURS Qty = 84 No Refills Instructions: Mix in 100 mL of NS and infuse. Morphine Sulfate (Morphine Sulfate) 30 MG TABLET 1 Tablet ORAL Every 4 hours as needed for Pain Qty = 24 No Refills Copies To: KEE PENDLETON,OMAR; MATT WHALEY,MARIBELL; LYNNE PENDLETON,M. MARK; BRIAN PENDLETON,CATE Badillo; CELE PENDLETON,[facility]LY [facility]
[2016-12-16 22:22] VITALS: BP 132/71
[2016-12-17 06:51] VITALS: BP 142/72
--- NOTE | 2016-12-17 06:55 | PN- Housestaff ---
See Addendum Subjective Follow-up For: Left foot Osteomyelitis Subjective: Mr. Rudd was seen and examined this morning. He is resting comfortably on the chair beside his bed. He is currently awaiting to go to the OR later today. He is currently nothing by mouth. Patient continues to endorse pain. Pain is rated at a 7 out of 10. Described as sharp pain. Worse with movement. Pain is more prominent in the left foot. Patient also reports chronic back pain of which he has had for multiple years. He denies any fever, chills, nausea, vomiting. Review of Systems Constitutional: Reports: see HPI. Objective Last 24 Hrs of Vital Signs/I&O Vital Signs Date Time Temp Pulse Resp B/P B/P Pulse O2 O2 Flow FiO2 Mean Ox Delivery Rate 12/17 1428 Room Air Room Air 12/17 1416 98.5 100 20 154/80 98 12/17 0910 70 142/70 12/17 0651 99.1 76 18 142/72 99 Room Air 12/17 0000 96 Nasal Room Air Cannula 12/16 2222 98.0 70 18 132/71 96 Room Air Intake & Output 12/17 1600 06 0800 12/17 0000 Intake Total 850 600 830 Output Total 1400 700 700 Balance -550 -100 130 Intake, IV 600 600 Intake, Oral 250 0 830 Output, Urine 1400 700 700 Physical Exam General Appearance: Alert, Oriented X3, Cooperative HEENT: Atraumatic, Mucous Membr. moist/pink Cardiovascular: Regular Rate, Normal S1, Normal S2 Lungs: Clear to Auscultation Abdomen: Normal Bowel Sounds, Soft, No Tenderness Neurological: Normal Speech Extremities: No Clubbing, No Cyanosis, No Edema, Left Foot wrapped in bandage. Current Medications: Current Medications Sig/Zehra Start time Last Medication Dose Route Stop Time Status Admin Acetaminophen 650 MG .STK-MED ONE 12/17 0601 DC PO 12/17 0602 Acetaminophen 650 MG Q6P PRN 12/12 2115 AC 12/17 PO 0604 Dextrose/Sodium 1,000 ML Q13H 12/17 0015 DC 12/17 Chloride IV 12/18 0213 0034 Docusate Sodium 100 MG DAILY NEEDED PRN 12/13 1200 AC PO Furosemide 40 MG DAILY 12/13 1000 DC 12/17 PO 0911 Gabapentin 100 MG 4 TIMES/DAY 06/02 1000 AC 12/17 PO 0910 Heparin Sodium 5,000 UNIT Q8 12/12 2200 AC 12/17 (Porcine) SC 0605 Hydromorphone HCl 1 MG Q3P PRN 12/16 1030 AC 12/17 IV 1432 Insulin Aspart 0 TIDAC/HS 12/17 1700 CAN SC Insulin Aspart 0 TIDAC 12/16 1200 DC 12/16 SC 1741 Insulin Human Regular 0 TIDAC/HS 12/17 1700 AC SC Insulin Human Regular 0 Q6 12/17 0600 DC 12/17 SC 0605 Lisinopril 10 MG DAILY 12/12 2230 AC 12/17 PO 0910 Morphine Sulfate 30 MG BID 12/17 2200 AC PO Morphine Sulfate 15 MG BID 12/16 1016 DC 12/17 PO 0910 Nicotine 21 MG DAILY 12/13 1000 AC 12/16 TOP 1559 Polyethylene Glycol 17 GM DAILY 12/13 1149 AC 12/15 PO 1103 Pravastatin Sodium 80 MG 1700 12/13 1700 AC 12/16 PO 1742 Senna/Docusate Sodium 2 TAB DAILY NEEDED PRN 12/13 1200 AC PO Vancomycin HCl 1,500 MG Q12H 12/14 1230 AC 12/17 Sodium Chloride 250 ML IV 1434 Zolpidem Tartrate 10 MG AT BEDTIME NEED.. 12/12 2115 AC PO Last 24 Hrs of Lab/Jabier Results Last 24 Hrs of Labs/Mics: Laboratory Tests 12/17/16 0735: CBC w Diff NO MAN DIFF REQ, RBC 3.47 L, MCV 81.3, MCH 26.8 L, RDW 17.0 H, MPV 8.4, Gran % 78.5 H, Lymphocytes % 12.3 L, Monocytes % 6.5, Eosinophils % 2.4, Basophils % 0.3, Absolute Granulocytes 10.5 H, Absolute Lymphocytes 1.7, Absolute Monocytes 0.9 H, Absolute Eosinophils 0.3, Absolute Basophils 0, PUBS MCHC 33.0 12/17/16 0015: Vancomycin Trough 21.6 H Microbiology 12/17 1206 EXTREMITIE: Gross Specimen Examination - RECD 12/17 120 EXTREMITIE: Gram Stain - RECD Assessment/Plan Assessment: Mr. Rudd is a 56 YO M current active smoker, with PMH of uncontrolled diabetes mellitus type 2, peripheral neuropathy, hypertension, hyperlipidemia, nonhealing ulcer of the left foot, was brought in by ambulance for fever up to 102.6, chills, painful and swollen left foot with drainage. Labs (WBC 21.8, ESR >130, CRP > 9) and imaging concerning for osteomyelitis, patient was taken to the OR by Dr. Sanchez on 12/12/16 for first ray resection. Subsequently transferred to post op. Osteomyelitis of left foot s/p resection * IV vancomycin for MRSA, Vanco trough: 21.6 * WBC decreased to 13.4 * Follow-up final culture * Weight-bearing status heel touch * PP: Dilaudid 1 mg IV every 3 when necessary severe pain for breakthrough, morphine sulfate (MS Contin) 30 twice a day, Tylenol for mild pain * Appreciate ID and podiatry input Peripheral vascular disease * Uncontrolled diabetic, actively smoking 2 packs per day. * Duplex left lower extremity shows increased velocities in profunda femoris artery, which is suggestive of stenosis of distal right superficial femoral artery. This critical finding was shared with vascular surgeon Dr. Prather, who mentioned that the patient should go angiogram, likely . * Needs angiogram nonemergently Uncontrolled Diabetes mellitus (on oral hypoglycemics) with neuropathy * hemiglobin A1c of 8.4 * Insulin NovoLog tidac * We'll hold home glyburide and metformin * Continue Gabapentin 100 mg 4 times a day HIstory of Hypertension * Continue Lisinopril 10 mg daily JOEY * Differential could include interstitial nephritis. We will currently hold Lasix in a.m. * Assess BUN/creatinine in am. History of Hyperlipidemia * Pravastatin 80 mg daily Chronic lower extremity edema, left more than right * Continue Lasix 40 mg daily, will hold Lasix on 12/18/2016 owing to increasing BUN/creatinine (45 and 1.3). Assess in a.m. Nicotine dependence * Nicotine patch 21 mg daily * Smokes 2 packs daily Sleep * Continue Zolpidem 10 mg at bedtime as needed Diet: heart healthy DVT ppx: Heparin subcutaneous and alps FULL CODE Problem List: 1. Osteomyelitis of left foot 2. Diabetic foot ulcer 3. Cellulitis of left foot Pain Ratin Pain Location: Left Foot Pain Goal: Remain pain free Pain Plan: Dilaudid and MS continn (this was increased today to 30 mg BID) Tomorrow's Labs & Rationales: CBC: Monitor CBC in setting of infection BEP: Monitor for JOEY in the setting of possible DIN Consulting Request: Consulting Specialty: Infectious Disease Consulting Physician: Dr. Chi Reason for Consult: Osteomyelitis
[2016-12-17 08:52] LABS: ABSOLUTE BASOPHIL COUNT 0 /CUMM (0.0-0.2); ABSOLUTE EOSINOPHIL COUNT 0.3 /CUMM (0.0-0.7); ABSOLUTE GRANULOCYTE CT 10.5 /CUMM (1.4-6.5); ABSOLUTE LYMPH COUNT 1.7 /CUMM (1.2-3.4); ABSOLUTE MONOCYTE COUNT 0.9 /CUMM (0.10-0.60); BASOPHIL % 0.3 % (0.0-2.0); EOSINOPHIL % 2.4 % (0-5); GRANULOCYTE % 78.5 % (42.2-75.2); HEMATOCRIT 28.2 % (42-52); MEAN CORPUSCULAR HGB 26.8 PG (27.0-31.0); MEAN CORPUSCULAR VOLUME 81.3 FL (80.0-94.0); MEAN PLATELET VOLUME 8.4 FL (7.4-10.4); PLATELET COUNT 387 /CUMM (130-400); RED BLOOD CELL CT 3.47 /CUMM (4.70-6.10); WHITE BLOOD CELL COUNT 13.4 /CUMM (4.8-10.8)
--- NOTE | 2016-12-17 08:57 | PN- Student ---
See Addendum Subjective Subjective: FOR TEACHING PURPOSES ONLY Patient is a 56-year-old male with a past medical history of type II uncontrolled diabetes, hypertension and osteomyelitis presented to the ED with a left purulent ulcerated foot infection and fevers. Today, the patient sitting in the chair calm, cooperative, and in no distress. He rates his pain at a 4/10 localized to his left foot and localized chronic back pain. At worse, he is at 7 /10. He states that his dilaudid works, but only lasts about 1.5 hours. He is NPO for debridement today and states he was hungry. He would like food right after debridement. ROS: denies SOB, cp, diarrhea, constipation, oliguria, dysuria. Objective Objective: PE: General: Pt. is calm, cooperative, in no apparent distress. Affect is appropriate to situation Cardiovascular: RRR, Normal S1 and S2. No mumurs, rubs, or gallops Pulm: Diminished posterior breath sounds bilaterally. Expiratory wheezes in the lower lobes bilaterally. GI: Normal bowel sounds in all 4 quadrants. Obese, nondistended, nontender. No ascites present, no guarding LE: 3+ edema in the lower legs bilaterally. 2+ DP and PT. . ID consult 12/16/16 Impression: Stable on Vancomycin Day 2 of treatment for a polymicrobial osteomyelitis of the left foot, with MRSA isolated from the OR cultures along with other gram- positive organisms, now 4 days status post left partial first ray amputation, with extension of infection posteriorly to the heel and medial malleolar area. His temperatures remain lower grade and white blood cell count remains elevated, though decreased, and suspect that he has residual infection within the left foot. He is scheduled for a return to the OR in the a.m. for further debridement/drainage. Suggestion: 1. Await return to the OR in the a.m. per Podiatry 2. Vascular surgery follow-up regarding the arterial Doppler results 3. Vancomycin trough level with his next dose 4. Continue Vancomycin Results Results: Laboratory Tests 12/17/16 0735: CBC w Diff Pending, WBC Pending, RBC Pending, Hgb Pending, Hct Pending, MCV Pending, MCH Pending, RDW Pending, Plt Count Pending, MPV Pending, PUBS MCHC Pending 12/17/16 0015: Vancomycin Trough 21.6 H 12/16/16 0705: Anion Gap 12, Estimated GFR 57 L, BUN/Creatinine Ratio 34.6 H, CBC w Diff NO MAN DIFF REQ, RBC 3.62 L, MCV 82.1, MCH 26.7 L, RDW 17.5 H, MPV 8.3, Gran % 81.9 H, Lymphocytes % 10.0 L, Monocytes % 5.5, Eosinophils % 2.2, Basophils % 0.4, Absolute Granulocytes 11.2 H, Absolute Lymphocytes 1.4, Absolute Monocytes 0.8 H, Absolute Eosinophils 0.3, Absolute Basophils 0.1, PUBS MCHC 32.5 L 12/15/16 0735: CBC w Diff NO MAN DIFF REQ, RBC 3.47 L, MCV 82.2, MCH 27.1, RDW 17.5 H, MPV 8.7, Gran % 82.0 H, Lymphocytes % 10.9 L, Monocytes % 5.5, Eosinophils % 1.3, Basophils % 0.3, Absolute Granulocytes 13.4 H, Absolute Lymphocytes 1.8, Absolute Monocytes 0.9 H, Absolute Eosinophils 0.2, Absolute Basophils 0, PUBS MCHC 33.0 12/14/16 1703: CBC w Diff NO MAN DIFF REQ, RBC 3.55 L, MCV 82.4, MCH 26.9 L, RDW 17.2 H, MPV 8.0, Gran % 82.8 H, Lymphocytes % 9.6 L, Monocytes % 6.5, Eosinophils % 0.9, Basophils % 0.2, Absolute Granulocytes 11.8 H, Absolute Lymphocytes 1.4, Absolute Monocytes 0.9 H, Absolute Eosinophils 0.1, Absolute Basophils 0, PUBS MCHC 32.7 L Assessment/Plan Assessment: Patient is a 56-year-old male who is a current smoker with a past medical history of type II uncontrolled diabetes, hypertension and osteomyelitis presented to the ED with a left purulent ulcerated foot infection and fevers. Labs show leukocytosis, granulocytosis, anemia, azotemia, and worsening GFR. 1. Osteomyelitis: Pt. states he does not have have any fever or chills. Yesterday morning * Labs are improving from 20.1 to 13.5. * Continue vancomycin 2. Mild JOEY: Pt's BUN increased from 27 to 45. The aptient was NPO yesterday and today and he is also on nephrotoxic meds like Lasix and Lisinopril. He is running on D5W- 1/2 normal saline at 75ml/hr. Due to his 2 day NPO status and nephrotoxicity, his acute JOEY may due to his dehydration. 3. Chronic back pain: the patient states that he has localized foot pain and chronic back pain. 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 He states he experiences a 7/10 back pain and that the Dilaudid will decrease to 4/10 but only last 1.5 hours. 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 His last BM was yesterday, so no need for bowel regimen currently. 4. Uncontrolled DM: We will need to continue to monitor his diabetes * Novolog TID per sliding scale * Hold home DM meds 5. HTN * Continue Lisinopril and Furosemide. If kidney functions are decreasing, we may consider cutting the dose 6. Hyperlipidemia * Continue pravastatin 7. Nicotine Dependence * Smokes 2 packs a day. Put him on a nicotine patch. * Smoking cessation education 8. Pt. shows normalcytic anemia, but is stable around 9.
--- NOTE | 2016-12-17 12:01 | NUR ---
Physical Therapy: Attempted to see pt for treatment this morning. Pt currently SENDY at the OR for I&D. Will follow up as appropriate.
--- NOTE | 2016-12-17 13:00 | Operative Report ---
Operative/Inv Procedure Report Surgery Date: 12/17/16 Name of Procedure: 1 open incision and drainage deep to the deep fascia with exposure of the extensor and flexor tendon and tendon sheath multiple sites left foot 2 revisional partial first ray resection left foot 3 intraoperative administration of ankle block anesthesia 4 intraoperative administration of negative pressure wound therapy 5 excisional debridement Pre-Operative Diagnosis: 1 open necrotic wound left foot 2 osteomyelitis left foot 3 diabetic peripheral neuropathy Post-Operative Diagnosis: The same Estimated Blood Loss: less than 50ml Surgeon/Newborn Hearing Screener: MARIBELL GUTIERREZ DPM Anesthesia: moderate sedation, block Operative/Procedure Note Note: After obtaining informed consent the patient was brought to the operating room and placed on the operating table in supine position. The patient isn't securely fastened to the operating table utilizing safety belt. After administration of IV sedation, 10 mL of 0.5% Marcaine plain was infiltrated about the patient's left ankle. Left foot and ankle within scrubbed prepped and draped in usual aseptic manner. Attention was directed to the medial left foot, where a large full-thickness necrotic was identified extending from the distal foot proximally to the interval between the medial malleolus and the Achilles tendon. A 15 blade visualized sharply revised skin margins. Dissection was then carried down deep to fascia with exposure of the extensor and flexor tendon and tendon sheath multiple sites, both proximally and distally. All necrotic nonviable infected tissue sharply evacuated from the wound bed. He dissection then continued down to the periosteum overlying the distal stump the first metatarsal was incised reflected. Sagittal bone saw was utilized to perform a through and through osteotomy. The distal osseous segment was freed and passed from the operative field. Specimen was harvested for both microbiologic and pathologic inspection. His then irrigated with 3 L normal sterile saline infusion 50,000 units of bacitracin. Following this, the foot was redraped and the surgeon's top was changed clean gloves. Any bleeding vessels identified were cauterized or ligated as encountered. Negative pressure wound therapy was then placed within the wound bed followed by Kerlix and an Zach wrap. The patient is noted tolerate both procedure and anesthesia well and the patient was transported from the operating room to recovery with vital signs stable.
--- NOTE | 2016-12-17 14:00 | NUR ---
PT TX FROM PACU S/P LEFT FOOT REVESION WITH WOUND VAC PLACEMENT, PT AXO, C/O LEFT FOOT PAIN 4/10, LEFT FOOT DSG CDI, PT REORIENTED BACK TO ROOM.
--- NOTE | 2016-12-17 14:02 | NUR ---
PT IN SURGERY, NOT SEEN BY OT.
[2016-12-17 14:16] VITALS: BP 154/80
[2016-12-17 18:00] VITALS: BP 122/56
[2016-12-17 22:31] VITALS: BP 152/58
[2016-12-18 06:16] VITALS: BP 134/60
--- NOTE | 2016-12-18 06:28 | PN- Housestaff ---
[facility] 12/18/1628: Subjective Follow-up For: Osteomyelitis Subjective: Mr Rudd was seen and examined this morning. Is resting comfortably in bed. Patient reports that his pain is improved and appreciates the change in medications. Currently seems very somnolent although is alert and oriented 3. Currently watching TV catching up on baseball game. He denies any fever, chills, nausea, vomiting. Is tolerating PO Intake well. Review of Systems Constitutional: Reports: see HPI. Objective Last 24 Hrs of Vital Signs/I&O Vital Signs Date Time Temp Pulse Resp B/P B/P Pulse O2 O2 Flow FiO2 Mean Ox Delivery Rate 12/18 1454 98.2 86 20 140/70 96 12/18 1410 Room Air Room Air 12/18 0825 98.6 12/18 0822 130/62 12/18 0616 101.0 89 20 134/60 92 Room Air / 0000 94 Room Air 12/17 2231 98.4 98 19 152/58 94 Room Air 12/17 1800 100.4 100 18 122/56 94 Room Air Intake & Output 12/18 1600 /07 0800 06/ 0000 Intake Total 1600 500 200 Output Total 1880 1275 350 Balance -280 -775 -150 Intake, IV 250 300 Intake, Oral 1350 200 200 Output, 80 25 Drainage Output, Urine 1800 1250 350 Physical Exam General Appearance: Alert, Oriented X3, Cooperative Cardiovascular: Regular Rate, Normal S1, Normal S2 Lungs: Clear to Auscultation Abdomen: Normal Bowel Sounds, Soft, No Tenderness Neurological: Normal Speech, Strength at 5/5 X4 Ext Extremities: Venous Stasis. Left Foot Wrapped in Bandage, s/p I and D Current Medications: Current Medications Sig/Zehra Start time Last Medication Dose Route Stop Time Status Admin Acetaminophen 650 MG .STK-MED ONE 12/18 06 DC PO 12/18 06 Acetaminophen 650 MG Q6P PRN 12/12 2115 AC 12/18 PO 0627 Ampicillin Sodium/ 4,500 MG Q6 12/18 1411 CAN Sulbactam Sodium IV Sodium Chloride 100 ML Docusate Sodium 100 MG DAILY NEEDED PRN 12/13 1200 AC PO Gabapentin 100 MG 4 TIMES/DAY 12/13 1000 AC 12/18 PO 1242 Heparin Sodium 5,000 UNIT Q8 12/12 2200 AC 12/18 (Porcine) SC 1242 Hydromorphone HCl 1 MG Q3P PRN 12/16 1030 AC 12/18 IV 1506 Insulin Aspart 0 TIDAC 12/17 1745 AC 12/18 SC 1242 Insulin Aspart 0 TIDAC/HS 12/17 1700 DC 12/17 SC 1707 Lisinopril 10 MG DAILY 12/12 2230 AC 12/18 PO 0822 Morphine Sulfate 30 MG BID 12/17 2200 AC 12/18 PO 0940 Nicotine 21 MG DAILY 12/13 1000 12/18 TOP 0820 Non-Formulary 0 SEE ADMIN CRITERIA 12/18 1415 CAN Medication ANY Patient Medication 1 ED .STK-MED ONE 12/18 1353 [place] Teaching ED 12/18 1354 Piperacillin Sod/ 4.5 GM Q6 12/18 1800 AC Tazobactam Sod IV Sodium Chloride 100 ML Polyethylene Glycol 17 GM DAILY 12/13 1149 AC 12/18 PO 0821 Pravastatin Sodium 80 MG 1700 12/13 1700 AC 12/17 PO 1707 Senna/Docusate Sodium 2 TAB DAILY NEEDED PRN 12/13 1200 AC PO Vancomycin HCl 1,250 MG Q12H 12/18 0030 AC 12/18 Sodium Chloride 250 ML IV 1242 Zolpidem Tartrate 10 MG AT BEDTIME NEED.. 12/12 2115 AC 12/17 PO 2038 Last 24 Hrs of Lab/Jabier Results Last 24 Hrs of Labs/Mics: Laboratory Tests 12/18/16 0620: Anion Gap 10, Estimated GFR 52 L, BUN/Creatinine Ratio 22.9, CBC w Diff NO MAN DIFF REQ, RBC 3.21 L, MCV 82.0, MCH 26.7 L, RDW 17.8 H, MPV 8.4, Gran % 80.8 H, Lymphocytes % 10.2 L, Monocytes % 8.0, Eosinophils % 0.7, Basophils % 0.3, Absolute Granulocytes 13.8 H, Absolute Lymphocytes 1.7, Absolute Monocytes 1.4 H, Absolute Eosinophils 0.1, Absolute Basophils 0, PUBS MCHC 32.6 L Microbiology 12/18 08 BLOOD: Blood Culture - RECD 12/19 819 BLOOD: Blood Culture - RECD Assessment/Plan Assessment: Mr. Rudd is a 56 YO M current active smoker, with PMH of uncontrolled diabetes mellitus type 2, peripheral neuropathy, hypertension, hyperlipidemia, nonhealing ulcer of the left foot, was brought in by ambulance for fever up to 102.6, chills, painful and swollen left foot with drainage. Labs (WBC 21.8, ESR >130, CRP > 9) and imaging concerning for osteomyelitis, patient was taken to the OR by Dr. Sanchez on 12/12/16 for first ray resection. Subsequently transferred to post op. Osteomyelitis of left foot s/p resection * IV vancomycin for MRSA, Vanco trough: 21.6, IV vancomycin was reduced at 1250 mg every 12 . Will repeat a vancomycin level on 12/20/2016. * WBC decreased to 17.1. Patient was also febrile this morning and repeat blood cultures have been ordered. * Antibiotic increased to broaden coverage. Patient started on Zosyn 4.5 g IV every 6. * Patient will likely to return to the OR on 12/20/2016. * Follow-up final culture * Weight-bearing status heel touch * PP: Dilaudid 1 mg IV every 3 when necessary severe pain for breakthrough, morphine sulfate (MS Contin) 30 twice a day, Tylenol for mild pain * Appreciate ID and podiatry input Peripheral vascular disease * Uncontrolled diabetic, actively smoking 2 packs per day. * Duplex left lower extremity shows increased velocities in profunda femoris artery, which is suggestive of stenosis of distal right superficial femoral artery. This critical finding was shared with vascular surgeon Dr. Prather, who mentioned that the patient should go angiogram, likely Afternoon. * Needs angiogram nonemergently Uncontrolled Diabetes mellitus (on oral hypoglycemics) with neuropathy * hemiglobin A1c of 8.4 * Insulin NovoLog tidac, FS, 274, 168, if still elevated in a.m. consider switching to medium dose sliding scale. * We'll hold home glyburide and metformin * Continue Gabapentin 100 mg 4 times a day HIstory of Hypertension * Continue Lisinopril 10 mg daily JOEY * Differential could include interstitial nephritis. We will currently hold Lasix in a.m. * Assess BUN/creatinine in am. History of Hyperlipidemia * Pravastatin 80 mg daily Chronic lower extremity edema, left more than right * Continue Lasix 40 mg daily, will hold Lasix on 12/18/2016 owing to increasing BUN/creatinine (32 and 1.4). * iMove 12/18/2016. Continue hydration. Nicotine dependence * Nicotine patch 21 mg daily * Smokes 2 packs daily Sleep * Continue Zolpidem 10 mg at bedtime as needed Diet: heart healthy DVT ppx: Heparin subcutaneous and alps FULL CODE Problem List: 1. Diabetic foot ulcer 2. Osteomyelitis of left foot 3. Diabetes 4. Cellulitis of right lower leg Pain Ratin Pain Location: Left Foot Pain Goal: Remain pain free Pain Plan: Dilaudid and MS Contin Tomorrow's Labs & Rationales: BEP: Monitor Electrilytes in the setting of JOEY CBD: Monitore reponse to infection Consulting Request: Consulting Specialty: Infectious Disease Consulting Physician: Dr. Chi Reason for Consult: Osteomyelitis OMAR SWEET MD 12/18/16 1231: Attending MD Review Statement Attending Statement Attending MD Statement: examined this patient, discuss w/resident/PA/BRICK OFF BEARER, agreed w/resident/PA/BRICK OFF BEARER, reviewed EMR data (avail) Attending Assessment/Plan: 56M PMH HTN, HLD, T2DM, diabetic peripheral polyneuropathy admitted with sepsis secondary to acute osteomyelitis of the left foot s/p incision and drainage on by podiatry, with wound cultures growing mRSA and polymicrobial organisms. Febrile this morning to 101. Underwent surgical revision of foot on 12/17. Patient reports diaphoresis early this morning that has resolved. Currently his pain is 2/10. 1. Sepsis secondary to mRSA (resolved) 2. Acute osteomyelitis of left foot 3. Right SFA stenosis 4. Peripheral arterial disease 5. T2DM with diabetic polyneuropathy Plan - Continue on general medicine - Continue Vancomycin - Follow cultures - Follow ID, podiatry, vascular recommendations - Monitor fingerstick levels - Continue home medications - DVT PPx
--- NOTE | 2016-12-18 07:53 | PN- Student ---
Subjective Subjective: Patient is a 56-year-old male with a past medical history of type II uncontrolled diabetes, hypertension and osteomyelitis presented to the ED with a left purulent ulcerated foot infection and fevers. Yesterday, the patient states he was feeling feverish and sweating. He said his temperature reached 100.4 and was given acetominophen and his temperature reduced to 98.4. The nurse stated that the patient looked confused and did not know where he was after his surgery. When I saw him, he was naked and stated he was feeling hot and sweaty. He was drifting in and out of sleeping during the interview. This morning, the nurse reported that he has a 101 fever. He reports 5/10 pain localized to his left food and back and states that is increasing. He had Dilaudid 1mg IV this morning at 0530 and MS-contin 30mg PO yesterday at 2030. 1626: Patient looks uncomfortable and states that he has 7/10 foot and 8/10 back pain. He received his dilauded at 1500 and states that his pain is not alleviated. He requested a warm compress and he was given a warm rice sock, which seems to be helping. Objective Objective: PE: General: Pt. is diaphoretic, naked, drifting in and out of sleep. Speech was slow and paused intermittently. Neuro: Alert and Oriented x 3. MMSE=30/30. Cardiovascular: RRR, normal S1 and S2. No mumurs, rubs, or gallops. Pulm: diminished breath sounds in the anterior lobes. No wheezing, rales, or rhonchi GI: obese. Normal bowel sounds. No tenderness, ascites, or guarding LE: Lower left toe amputation. Left foot dressing intact. Bilateral leg edema +3 , erythema, warmth. ID Consult 12/18/16 Impression: Fever with increased white blood cell count today, possibly secondary to his surgery yesterday, with revisional partial first ray resection and placement of a wound VAC, but, with the OR cultures now growing gram-negative rods, his antibiotic regimen will need to be broadened to cover at least for a soft tissue infection due to these organisms. He is currently on Vancomycin alone, Day 4 of treatment for what was felt to be a polymicrobial gram-positive osteomyelitis of the left foot, with his Vancomycin dose decreased yesterday based on his slightly elevated trough level. He is scheduled for a return to the OR on December 20 for further debridement/drainage and angiogram. Suggestion: 1. Await return to the OR later this week 2. Follow-up final OR cultures 3. Would proceed with placement of a PICC 4. Add Zosyn 4.5 g IV every 6 hours 5. Continue Vancomycin Results Results: Laboratory Tests 12/18/16 0620: Sodium Pending, Potassium Pending, Chloride Pending, Carbon Dioxide Pending, Anion Gap Pending, BUN Pending, Creatinine Pending, BUN/Creatinine Ratio Pending , CBC w Diff Pending, WBC Pending, RBC Pending, Hgb Pending, Hct Pending, MCV Pending, MCH Pending, RDW Pending, Plt Count Pending, MPV Pending, PUBS MCHC Pending 12/17/16 0735: CBC w Diff NO MAN DIFF REQ, RBC 3.47 L, MCV 81.3, MCH 26.8 L, RDW 17.0 H, MPV 8.4, Gran % 78.5 H, Lymphocytes % 12.3 L, Monocytes % 6.5, Eosinophils % 2.4, Basophils % 0.3, Absolute Granulocytes 10.5 H, Absolute Lymphocytes 1.7, Absolute Monocytes 0.9 H, Absolute Eosinophils 0.3, Absolute Basophils 0, PUBS MCHC 33.0 12/17/16 0015: Vancomycin Trough 21.6 H 12/16/16 0705: Anion Gap 12, Estimated GFR 57 L, BUN/Creatinine Ratio 34.6 H, CBC w Diff NO MAN DIFF REQ, RBC 3.62 L, MCV 82.1, MCH 26.7 L, RDW 17.5 H, MPV 8.3, Gran % 81.9 H, Lymphocytes % 10.0 L, Monocytes % 5.5, Eosinophils % 2.2, Basophils % 0.4, Absolute Granulocytes 11.2 H, Absolute Lymphocytes 1.4, Absolute Monocytes 0.8 H, Absolute Eosinophils 0.3, Absolute Basophils 0.1, PUBS MCHC 32.5 L Microbiology 12/17 1205 EXTREMITIE: Gross Specimen Examination - RECD 12/17 1205 EXTREMITIE: Gram Stain - RECD Assessment/Plan Assessment: Assessment and plan: Patient is a 56-year-old male with a past medical history of type II uncontrolled diabetes, hypertension, peripheral vascular disease, and osteomyelitis presenting with acute diaphoresis, fever, granulocytosis, and possible delrium after debridement. 1. Osteomyelitis: Last night, the patient was delirious, diaphoretic, and febrile. This morning he was warm, diaphoretic, and somnolent. He was alert and oriented x3, cognition intact, judgement was fair. Seeing that the patient had his debridement yesterday, it is possible that this patient became bacteriemic from the surgery. His WBC increased from 13.4 to 17.1 and his cultures are also growing gram negative rods. Vancomyocin is not efficient in killing gram negative rods, so we will need to add an additional antibiotic for gram negative coverage. I consulted with my internet technology manager and resident and they ordered blood cultures and ID consult. * Vancomycin 1250mg/250mL * Vanco trough is 21.6 * Per ID consult, we will add zosyn 4.5 g IV q6h * Blood cultures and CBC 2. JOEY: Today, the BUN has decreased from 45 to 32. However, the Cr is kyle to 1.4. We increased his D5W- 1/2 normal saline at 100ml/hr and held his lasix. DDx include dehydration, ATN, and interstitial nephritis. When JOEY was found, the patient was NPO for two nights. This could have contribute to his increase in BUN. Another possibility is ATN due to decrease perfusion and diuretic use. To be diagnosed with ATN, he must have a rise in Cr of 0.3mg/dL over 48 hours, Cr> 1.5 normal baseline, or urine volume <0.5. He does not fit into this criteria, so it this is less likely. Infections such as streptococcus, corynebacterium diptheriae, and enterococcus can cause acute interstitital nephritis. In addition, the patient was on tramadol. which can also cause AIN, so this diagnosis is the most likely. * hold diuretics for now * BEP 3. Chronic back pain: the patient states that he has localized foot pain and chronic back pain. 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 Today he experiences a 5/10 back pain Dilaudid. Yesterday, we increased his morphine sulfate from 15mg to 30mg for longer lasting pain relief. The patient was given a warm compress for back pain. * Hydromorphone 1mg q3h IV PRN for break through pain * Morphine sulfate 30mg PO BID for mcfp pain relief * Warm compress for back pain * Bowel regimen if patient has been constipated for 3 days. His last BM was two days ago, so no need for bowel regimen currently. 4. Uncontrolled DM: We will need to continue to monitor his diabetes * Novolog TID per sliding scale * Hold home DM meds 5. Peripheral Vascular disease: Elevated the legs when possible. Angiogram on Friday 6. HTN * Continue Lisinopril and hold Furosemide. If kidney functions are decreasing, we may consider cutting the dose 7. Hyperlipidemia * Continue pravastatin 8. Nicotine Dependence * Smokes 2 packs a day. Put him on a nicotine patch. * Smoking cessation education 9. Normocytic anemia: the patient's Hgb decreased from 9.3 to 8.6 today. He is asymptomatic, so we will just monitor. Reorder CBC. * Bowel regimen if patient has been constipated for 3 days. His last BM was two days ago, so no need for bowel regimen currently.
[2016-12-18 07:59] LABS: ABSOLUTE BASOPHIL COUNT 0 /CUMM (0.0-0.2); ABSOLUTE EOSINOPHIL COUNT 0.1 /CUMM (0.0-0.7); ABSOLUTE GRANULOCYTE CT 13.8 /CUMM (1.4-6.5); ABSOLUTE LYMPH COUNT 1.7 /CUMM (1.2-3.4); ABSOLUTE MONOCYTE COUNT 1.4 /CUMM (0.10-0.60); BASOPHIL % 0.3 % (0.0-2.0); EOSINOPHIL % 0.7 % (0-5); GRANULOCYTE % 80.8 % (42.2-75.2); HEMATOCRIT 26.3 % (42-52); MEAN CORPUSCULAR HGB 26.7 PG (27.0-31.0); MEAN CORPUSCULAR HGB CONC 32.6 G/DL (33.0-37.0); MEAN PLATELET VOLUME 8.4 FL (7.4-10.4); PLATELET COUNT 330 /CUMM (130-400); RBC DISTRIBUTION WIDTH 17.8 % (11.5-14.5); RED BLOOD CELL CT 3.21 /CUMM (4.70-6.10); WHITE BLOOD CELL COUNT 17.1 /CUMM (4.8-10.8)
--- NOTE | 2016-12-18 13:08 | PN- Infect Dx ---
Subjective Subjective: MAXIMUM TEMPERATURE 101 this morning with no complaints Objective Last 24 Hrs of Vital Signs/I&O Vital Signs Date Time Temp Pulse Resp B/P B/P Pulse O2 O2 Flow FiO2 Mean Ox Delivery Rate 12/18 0825 98.6 12/18 0822 130/62 12/18 0616 101.0 89 20 134/60 92 Room Air / 0000 94 Room Air 12/17 2231 98.4 98 19 152/58 94 Room Air 12/17 1800 100.4 100 18 122/56 94 Room Air 12/17 1428 Room Air Room Air 12/17 1416 98.5 100 20 154/80 98 Intake & Output 12/18 1600 12/18 0800 06 0000 Intake Total 500 200 Output Total 1275 350 Balance -775 -150 Intake, IV 300 Intake, Oral 200 200 Output, 25 Drainage Output, Urine 1250 350 Physical Exam Other Physical Findings: He appears comfortable in no acute distress Lungs are clear Heart regular rhythm with no murmur Extremities left foot dressing intact, with wound VAC in place Results Last 24 Hours of Lab Results: Laboratory Tests 12/19 619 Chemistry Sodium (137 - 145 mmol/L) 134 L Potassium (3.5 - 5.1 mmol/L) 4.7 Chloride (98 - 107 mmol/L) 101 Carbon Dioxide (22 - 30 mmol/L) 23 Anion Gap (5 - 16) 10 BUN (9 - 20 mg/dL) 32 H Creatinine (0.7 - 1.2 mg/dL) 1.4 H Estimated GFR (>60 ml/min) 52 L BUN/Creatinine Ratio (7 - 25 %) 22.9 Hematology CBC w Diff NO MAN DIFF REQ WBC (4.8 - 10.8 /CUMM) 17.1 H RBC (4.70 - 6.10 /CUMM) 3.21 L Hgb (14.0 - 18.0 G/DL) 8.6 L Hct (42 - 52 %) 26.3 L MCV (80.0 - 94.0 FL) 82.0 MCH (27.0 - 31.0 PG) 26.7 L RDW (11.5 - 14.5 %) 17.8 H Plt Count (130 - 400 /CUMM) 330 MPV (7.4 - 10.4 FL) 8.4 Gran % (42.2 - 75.2 %) 80.8 H Lymphocytes % (20.5 - 51.1 %) 10.2 L Monocytes % (1.7 - 9.3 %) 8.0 Eosinophils % (0 - 5 %) 0.7 Basophils % (0.0 - 2.0 %) 0.3 Absolute Granulocytes (1.4 - 6.5 /CUMM) 13.8 H Absolute Lymphocytes (1.2 - 3.4 /CUMM) 1.7 Absolute Monocytes (0.10 - 0.60 /CUMM) 1.4 H Absolute Eosinophils (0.0 - 0.7 /CUMM) 0.1 Absolute Basophils (0.0 - 0.2 /CUMM) 0 PUBS MCHC (33.0 - 37.0 G/DL) 32.6 L Last 24 Hours of Jabier Results: OR culture December 17 labeled left foot soft tissue positive for Staph aureus, probable Enterococcus and 2 types of gram-negative rods Blood cultures 2 December 18 pending Assessment/Plan Impression: Fever with increased white blood cell count today, possibly secondary to his surgery yesterday, with revisional partial first ray resection and placement of a wound VAC, but, with the OR cultures now growing gram-negative rods, his antibiotic regimen will need to be broadened to cover at least for a soft tissue infection due to these organisms. He is currently on Vancomycin alone, Day 4 of treatment for what was felt to be a polymicrobial gram-positive osteomyelitis of the left foot, with his Vancomycin dose decreased yesterday based on his slightly elevated trough level. He is scheduled for a return to the OR on December 20 for further debridement/drainage and angiogram. Suggestion: 1. Await return to the OR later this week 2. Follow-up final OR cultures 3. Would proceed with placement of a PICC 4. Add Zosyn 4.5 g IV every 6 hours 5. Continue Vancomycin
[2016-12-18 14:54] VITALS: BP 140/70
--- NOTE | 2016-12-18 16:23 | NUR ---
SHIFT NOTE: UNEVENTFUL SHIFT. PATIENT REMAINED STABLE THROUGHOUT. PAIN MANAGEMENT CONCERNS WERE DISCUSSED WITH DR. SWEET AND THE TEAM. PATIENT GETTING 1MG DILAUDID Q3. CALLED ON THE HOUR FOR EACH DOSE. OTHERWISE, NO OTHER COMPLAINTS. DISCUSSED WITH THE PATIENT THAT CONCERNS WERE DISCUSSED WITH ATTENDING PHYSICAN, HOWEVER, PATIENT APPEARS A LITTLE DROWSY TO INCREASE DILAYDID DOSE. PATIENT DOES NOT AGREE THAT HE IS DROWSY AND STATES THAT HE IS THAT WAY MOST OF THE TIME. THIS REMAINS A CONCERN WITH THIS DICTATING RN. THESE CONCERNS WERE ADDRESSED TO THE PATIENT DURING REPORT.
--- NOTE | 2016-12-18 21:08 | NUR ---
PT ACCUCHECK 311 BEFORE BEDTIME. FAST FOOD TEAM MEMBER IMGE CALLED. 3U INSULIN ORDERED ONE TIME. WILL ACCUCHECK AGAIN IN 2HR PER IMGE. WILL CONTINUE TO MONITOR BLOOD SUGAR LEVELS.
[2016-12-18 21:45] VITALS: BP 120/70
--- NOTE | 2016-12-19 00:36 | NUR ---
NURSING NOTE: PATIENTS RECHECK FSBS IS 253 AT THIS TIME. MD MOTTA 108 MADE AWARE; PER MD NO COVERAGE AT THIS TIME. WILL CONT TO MONITOR AND RECHECK FSBS AT NEXT SCHEDULED TIME.
[2016-12-19 03:00] VITALS: BP 122/60
--- NOTE | 2016-12-19 06:13 | PN- Housestaff ---
CORINNE PENDLETON,[facility] 12/19/16 0612: Subjective Follow-up For: Osteomyelitis Chronic Pain Subjective: Mr. Rudd was seen and examined this morning. He states that he feels better and is requesting additional pain medication. Patient continues to endorse pain in his left lower extremity. Pain is rated a 4 out of 10 in severity. Described as throbbing. Denies any fever, chills, nausea, vomiting. Continues to tolerate by mouth intake well. Review of Systems Constitutional: Reports: see HPI. Objective Last 24 Hrs of Vital Signs/I&O Vital Signs Date Time Temp Pulse Resp B/P B/P Pulse O2 O2 Flow FiO2 Mean Ox Delivery Rate 12/19 1458 98.2 66 20 120/67 98 12/19 1033 100.2 12/19 0930 126/74 12/19 0300 100.5 85 20 122/60 93 Room Air 12/18 2145 97.4 80 20 120/70 98 Intake & Output 12/19 1600 08 0800 08 0000 Intake Total 2100 880 250 Output Total 1400 350 501 Balance 700 530 -251 Intake, IV 400 200 Intake, Oral 2100 480 50 Number 0 Bowel Movements Output, 0 Drainage Output, Stool 1 Output, Urine 1400 350 500 Physical Exam General Appearance: Alert, Oriented X3, Cooperative HEENT: Mucous Membr. moist/pink Cardiovascular: Regular Rate, Normal S1, Normal S2 Lungs: Clear to Auscultation Abdomen: Normal Bowel Sounds, Soft, No Tenderness Neurological: Normal Gait, Normal Speech Extremities: Venous Congestion Vascular: Left wound Vac in place Current Medications: Current Medications Sig/Zehra Start time Last Medication Dose Route Stop Time Status Admin Acetaminophen 650 MG Q6P PRN 12/12 2115 AC 12/18 PO 0627 Docusate Sodium 100 MG DAILY NEEDED PRN 12/13 1200 AC PO Gabapentin 100 MG 4 TIMES/DAY 12/13 1000 AC 12/19 PO 1658 Heparin Sodium 5,000 UNIT Q8 12/12 2200 AC 12/19 (Porcine) SC 1215 Hydromorphone HCl 0.5 MG ONCE ONE 12/19 1600 DC 12/19 IV 12/19 1601 1549 Hydromorphone HCl 1 MG Q4 HRS NEEDED PRN 12/19 1300 AC 12/19 IV 1240 Hydromorphone HCl 1 MG Q3P PRN 12/16 1030 DC 12/19 IV 0934 Insulin Aspart 0 AT BEDTIME 12/19 2200 AC SC Insulin Aspart 0 TIDAC/HS 12/19 1200 CAN SC Insulin Aspart 0 TIDAC 12/19 1200 AC 12/19 SC 1659 Insulin Aspart 3 UNITS ONCE ONE 12/18 2114 DC 12/18 SC 12/19 2115 2124 Insulin Aspart 0 TIDAC 12/17 1745 DC 12/19 SC 0933 Lisinopril 10 MG DAILY 12/12 2230 AC 12/19 PO 0930 Morphine Sulfate 15 MG Q8 12/19 2200 AC PO Morphine Sulfate 30 MG BID 12/17 2200 DC 12/19 PO 0931 Nicotine 21 MG DAILY 12/13 1000 AC 12/19 TOP 0932 Piperacillin Sod/ 4.5 GM Q6 12/18 1800 AC 12/19 Tazobactam Sod IV 1700 Sodium Chloride 100 ML Polyethylene Glycol 17 GM DAILY 12/13 1149 AC 12/18 PO 0821 Pravastatin Sodium 80 MG 1700 12/13 1700 AC 12/19 PO 1658 Senna/Docusate Sodium 2 TAB DAILY NEEDED PRN 12/13 1200 AC PO Sodium Chloride 1,000 ML Q6H 12/19 1015 DC 12/19 IV 12/19 1614 1233 Vancomycin HCl 1,250 MG Q12H 12/18 0030 AC 12/19 Sodium Chloride 250 ML IV 1214 Zolpidem Tartrate 10 MG AT BEDTIME NEED.. 12/12 211 AC 12/17 PO 2038 Last 24 Hrs of Lab/Jabier Results Last 24 Hrs of Labs/Mics: Laboratory Tests 12/19/16 1606: Anion Gap 11, Estimated GFR 39 L, BUN/Creatinine Ratio 20.6 12/19/16 0700: Anion Gap 12, Estimated GFR 42 L, BUN/Creatinine Ratio 21.8, CBC w Diff NO MAN DIFF REQ, RBC 3.04 L, MCV 81.8, MCH 27.1, RDW 17.6 H, MPV 8.4, Gran % 78.2 H, Lymphocytes % 12.6 L, Monocytes % 7.5, Eosinophils % 1.3, Basophils % 0.4, Absolute Granulocytes 11.4 H, Absolute Lymphocytes 1.8, Absolute Monocytes 1.1 H, Absolute Eosinophils 0.2, Absolute Basophils 0.1, PUBS MCHC 33.1 Assessment/Plan Assessment: Mr. Rudd is a 56 YO M current active smoker, with PMH of uncontrolled diabetes mellitus type 2, peripheral neuropathy, hypertension, hyperlipidemia, nonhealing ulcer of the left foot, was brought in by ambulance for fever up to 102.6, chills, painful and swollen left foot with drainage. Labs (WBC 21.8, ESR >130, CRP > 9) and imaging concerning for osteomyelitis, patient was taken to the OR by Dr. Sanchez on 12/12/16 for first ray resection. Subsequently transferred to post op. Osteomyelitis of left foot s/p resection * IV vancomycin for MRSA, Vanco trough: 21.6, IV vancomycin was reduced at 1250 mg every 12 . Will repeat a vancomycin level on 12/20/2016. * WBC decreased to 14.5. * Antibiotic increased to broaden coverage. Continue on Zosyn 4.5 g IV every 6. * Patient will likely to return to the OR on 12/20/2016.Will Be made NPO overnight. * Cultures: Citrobacter, Pseudomonas, Enterococcus,MRSA * Weight-bearing status heel touch * PP: Dilaudid 1 mg IV every 4 when necessary severe pain for breakthrough, morphine sulfate (MS Contin) 15 mg Q8, Tylenol for mild pain * Appreciate ID and podiatry input Anemia * H&H falling this a.m. 8.2/24.8. * Monitor CBC in a.m. to assess whether patient is stable to go for angiogram. Transfuse if below 8. Peripheral vascular disease * Uncontrolled diabetic, actively smoking 2 packs per day. * Duplex left lower extremity shows increased velocities in profunda femoris artery, which is suggestive of stenosis of distal right superficial femoral artery. This critical finding was shared with vascular surgeon Dr. Prather, who mentioned that the patient should go angiogram, likely Afternoon. * Needs angiogram nonemergently Uncontrolled Diabetes mellitus (on oral hypoglycemics) with neuropathy * hemiglobin A1c of 8.4 * Insulin NovoLog tidac, [phone] * We switched to medium dose sliding scale, we also addedd a bed time sliding scale. * We'll hold home glyburide and metformin * Continue Gabapentin 100 mg 4 times a day History of Hypertension * Continue Lisinopril 10 mg daily History of Hyperlipidemia * Pravastatin 80 mg daily JOEY * Held Lasix on 12/18/2016 owing to increasing BUN/creatinine. BUN and Cr today: ( 37 and 1.7). * Repeat BEP at 15.00. If Cr elevated, despite mild fluid hydration, patient might benefit from Lasix 20 mg. This is likely the result of hypoperfusion to the Kidney. If Cr elevated in am, hold TRISTEN inhibitor. Nicotine dependence * Nicotine patch 21 mg daily * Smokes 2 packs daily Sleep * Continue Zolpidem 10 mg at bedtime as needed Diet: heart healthy DVT ppx: Heparin subcutaneous and alps FULL CODE Problem List: 1. Cellulitis of left foot 2. Diabetic foot ulcer 3. Osteomyelitis of left foot 4. Diabetes Pain Ratin Pain Location: Back Left foot Pain Goal: Remain pain free Pain Plan: Dilaudid Tomorrow's Labs & Rationales: CBC: monitor H/H and WBC Consulting Request: Consulting Specialty: Infectious Disease Consulting Physician: Dr. Chi Reason for Consult: Osteomyelitis OMAR SWEET MD 12/19/16 1404: Attending MD Review Statement Attending Statement Attending MD Statement: examined this patient, discuss w/resident/PA/STILL OPERATOR, agreed w/resident/PA/STILL OPERATOR, reviewed EMR data (avail) Attending Assessment/Plan: 56M PMH HTN, HLD, T2DM, diabetic peripheral polyneuropathy admitted with sepsis secondary to acute osteomyelitis of the left foot s/p incision and drainage on by podiatry, with wound cultures growing mRSA and polymicrobial organisms. Febrile this morning to 100.2. Underwent surgical revision of foot on 12/17. Patient was somnolent with pinpoint pupils, so his Dilaudid has been changed from q3h to q4h. He is not happy about this, though he is much more awake and does not appear uncomfortable or in pain. 1. Sepsis secondary to mRSA (resolved) 2. Acute osteomyelitis of left foot 3. Right SFA stenosis 4. Peripheral arterial disease 5. T2DM with diabetic polyneuropathy Plan - Continue on general medicine - Continue Vancomycin and Zosyn - NPO after midnight for OR tomorrow - Check PT, PTT tomorrow morning - Follow cultures - Follow ID, podiatry, vascular recommendations - Monitor fingerstick levels - Continue home medications - DVT PPx
--- NOTE | 2016-12-19 07:24 | PN- Student ---
Subjective Subjective: Pt. is sitting in his bed comfortably, he any adverse events last night. Denies fevers, chills, diaphoresis, and FITZGERALD. Nurse does not note any signficant events last night either. He received his dilaudid one hour ago and reports a 3/10 pain in his left foot and back. He states that his pain is well controlled right now. His last bowel movement was last night. Denies any nausea, vomiting, diarrhea. ROS: Denies cp, palpitations, dyspnea, abdominal pain, oligouria, dysuria. Objective Objective: PE: General: Calm, cooperative, in no apparent distress. He is not somnolent today like he was yesterday. Neuro: Alert and Oriented x3. Cardio: RRR, normal S1 and S2. No mumurs, rubs, or gallops Pulm: Decreased breath sounds throughout the posterior lung field. GI: Obese, Normal bowel sounds throughout. Soft, nontender, no ascites present, no guarding present. LE: Edema +2 ID Consult 12/18/16 Impression: Fever with increased white blood cell count today, possibly secondary to his surgery yesterday, with revisional partial first ray resection and placement of a wound VAC, but, with the OR cultures now growing gram-negative rods, his antibiotic regimen will need to be broadened to cover at least for a soft tissue infection due to these organisms. He is currently on Vancomycin alone, Day 4 of treatment for what was felt to be a polymicrobial gram-positive osteomyelitis of the left foot, with his Vancomycin dose decreased yesterday based on his slightly elevated trough level. He is scheduled for a return to the OR on December 20 for further debridement/drainage and angiogram. Suggestion: 1. Await return to the OR later this week 2. Follow-up final OR cultures 3. Would proceed with placement of a PICC 4. Add Zosyn 4.5 g IV every 6 hours 5. Continue Vancomycin Results Results: Intake & Output 12/19 1600 12/19 0800 06 0000 Intake Total 880 250 Output Total 350 501 Balance 530 -251 Intake, IV 400 200 Intake, Oral 480 50 Number 0 Bowel Movements Output, 0 Drainage Output, Stool 1 Output, Urine 350 500 Laboratory Tests 12/19 0700 Chemistry Sodium (137 - 145 mmol/L) 134 L Potassium (3.5 - 5.1 mmol/L) 4.9 Chloride (98 - 107 mmol/L) 100 Carbon Dioxide (22 - 30 mmol/L) 22 Anion Gap (5 - 16) 12 BUN (9 - 20 mg/dL) 37 H Creatinine (0.7 - 1.2 mg/dL) 1.7 H Estimated GFR (>60 ml/min) 42 L BUN/Creatinine Ratio (7 - 25 %) 21.8 Hematology CBC w Diff NO MAN DIFF REQ WBC (4.8 - 10.8 /CUMM) 14.5 H RBC (4.70 - 6.10 /CUMM) 3.04 L Hgb (14.0 - 18.0 G/DL) 8.2 L Hct (42 - 52 %) 24.8 L MCV (80.0 - 94.0 FL) 81.8 MCH (27.0 - 31.0 PG) 27.1 RDW (11.5 - 14.5 %) 17.6 H Plt Count (130 - 400 /CUMM) 338 MPV (7.4 - 10.4 FL) 8.4 Gran % (42.2 - 75.2 %) 78.2 H Lymphocytes % (20.5 - 51.1 %) 12.6 L Monocytes % (1.7 - 9.3 %) 7.5 Eosinophils % (0 - 5 %) 1.3 Basophils % (0.0 - 2.0 %) 0.4 Absolute Granulocytes (1.4 - 6.5 /CUMM) 11.4 H Absolute Lymphocytes (1.2 - 3.4 /CUMM) 1.8 Absolute Monocytes (0.10 - 0.60 /CUMM) 1.1 H Absolute Eosinophils (0.0 - 0.7 /CUMM) 0.2 Absolute Basophils (0.0 - 0.2 /CUMM) 0.1 PUBS MCHC (33.0 - 37.0 G/DL) 33.1 Laboratory Tests 12/19/16 0700: Anion Gap 12, Estimated GFR 42 L, BUN/Creatinine Ratio 21.8, CBC w Diff NO MAN DIFF REQ, RBC 3.04 L, MCV 81.8, MCH 27.1, RDW 17.6 H, MPV 8.4, Gran % 78.2 H, Lymphocytes % 12.6 L, Monocytes % 7.5, Eosinophils % 1.3, Basophils % 0.4, Absolute Granulocytes 11.4 H, Absolute Lymphocytes 1.8, Absolute Monocytes 1.1 H, Absolute Eosinophils 0.2, Absolute Basophils 0.1, PUBS MCHC 33.1 Vital Signs Date Time Temp Pulse Resp B/P B/P Pulse O2 O2 Flow FiO2 Mean Ox Delivery Rate 12/19 0930 126/74 / 0300 100.5 85 20 122/60 93 Room Air 12/18 2145 97.4 80 20 120/70 98 /07 1454 98.2 86 20 140/70 96 /07 1410 Room Air Room Air Intake & Output 12/19 1600 08 0800 12/19 0000 Intake Total 880 250 Output Total 350 501 Balance 530 -251 Intake, IV 400 200 Intake, Oral 480 50 Number 0 Bowel Movements Output, 0 Drainage Output, Stool 1 Output, Urine 350 500 Assessment/Plan Assessment: Assessment: Assessment and plan: Patient is a 56-year-old male with a past medical history of type II uncontrolled diabetes, hypertension, peripheral vascular disease, and osteomyelitis who presented with acute diaphoresis, fever, granulocytosis, and possible delrium after debridement. He was febrile this morning at 0300 and 0930 , but he denied fevers, chills, and diaphoresis. ID was consulted yesterday and he was given Zosyn 4.5g IV. His WBC has improved from 17.1 to 14.5. The patient's BUN and Cr has increased today from 32 to 37 and 1.4 to 1.7 respectively. The only change from yesterday is the addition of Zosyn. One of the side effects of zosyn is increased BUN and Cr, so this is the most likely reason for this increase in JOEY. In addition, piperacillin may increase the nephrotoxic effect of vancomycin. He also may be fluid overloaded or fluid depleted. I discussed this with the resident and we will give Normal saline 150ml/hr now and retake the BEP. We will look at the renal function and see if it improves or worsens and adjust accordingly. 1. Osteomyelitis: Last night, the patient was delirious, diaphoretic, and febrile. This morning he was warm, diaphoretic, and somnolent. He was alert and oriented x3, cognition intact, judgement was fair. Seeing that the patient had his debridement yesterday, it is possible that this patient became bacteriemic from the surgery. His WBC increased from 13.4 to 17.1 and his cultures are also growing gram negative rods. Vancomyocin is not efficient in killing gram negative rods, so we will need to add an additional antibiotic for gram negative coverage. I consulted with my epidemiology intern and resident and they ordered blood cultures and ID consult. * Vancomycin 1250mg/250mL * Vanco trough is 21.6 * Per ID consult, we will add Zosyn 4.5 g IV q6h * Blood cultures and CBC * PICC line * Monitor temperature, acetaminophen PRN 2. JOEY: We D/C his D5W- 1/2 normal saline at 100ml/hr and held his lasix. DDx ATN and interstitial nephritis. To be diagnosed with ATN, he must have a rise in Cr of 0.3mg/dL over 48 hours, Cr>1.5 normal baseline, or urine volume <0.5. Today, his Cr increased from 1.4 to 1.7, which fits the criteria for ATN. The causes of ATN include hypotension, sepsis, bleeding, and nephrotoxic drugs. Since this patient shows s/s of an infection and has been started on Zosyn, this could be the cause of ATN. Infections such as streptococcus, corynebacterium diptheriae, and enterococcus can cause acute interstitital nephritis. In addition, the patient was on tramadol, which can also cause AIN. * BUN 32 to 37 * Cr 1.4 to 1.7 * I&O, he is in negative fluid balance * hold diuretics for now * 100ml/hr normal saline and repeat BEP this afternoon 3. Chronic back pain: the patient states that he has localized foot pain and chronic back pain. 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 Today he experiences a 5/10 back pain Dilaudid. Yesterday, we increased his morphine sulfate from 15mg to 30mg for longer lasting pain relief. The patient was given a warm compress for back pain. 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 His last BM was two days ago, so no need for bowel regimen currently. 4. Uncontrolled DM: We will need to continue to monitor his diabetes * Novolog TID per sliding scale * Hold home DM meds 5. Peripheral Vascular disease: Elevated the legs when possible. Angiogram on Friday 6. HTN * Continue Lisinopril and hold Furosemide. If kidney functions are decreasing, we may consider cutting the dose 7. Hyperlipidemia * Continue pravastatin 8. Nicotine Dependence * Smokes 2 packs a day. Put him on a nicotine patch. * Smoking cessation education 9. Normocytic anemia: the patient's Hgb decreased from 9.3 to 8.6 today. He is asymptomatic, so we will just monitor. Reorder CBC.
[2016-12-19 08:25] LABS: ABSOLUTE BASOPHIL COUNT 0.1 /CUMM (0.0-0.2); ABSOLUTE EOSINOPHIL COUNT 0.2 /CUMM (0.0-0.7); ABSOLUTE GRANULOCYTE CT 11.4 /CUMM (1.4-6.5); ABSOLUTE LYMPH COUNT 1.8 /CUMM (1.2-3.4); ABSOLUTE MONOCYTE COUNT 1.1 /CUMM (0.10-0.60); BASOPHIL % 0.4 % (0.0-2.0); EOSINOPHIL % 1.3 % (0-5); GRANULOCYTE % 78.2 % (42.2-75.2); HEMATOCRIT 24.8 % (42-52); MEAN CORPUSCULAR HGB 27.1 PG (27.0-31.0); MEAN CORPUSCULAR HGB CONC 33.1 G/DL (33.0-37.0); MEAN CORPUSCULAR VOLUME 81.8 FL (80.0-94.0); MEAN PLATELET VOLUME 8.4 FL (7.4-10.4); PLATELET COUNT 338 /CUMM (130-400); RBC DISTRIBUTION WIDTH 17.6 % (11.5-14.5); RED BLOOD CELL CT 3.04 /CUMM (4.70-6.10); WHITE BLOOD CELL COUNT 14.5 /CUMM (4.8-10.8)
--- NOTE | 2016-12-19 12:37 | RADIOLOGY REPORT ---
EXAMINATION: XR PORTABLE CHEST CLINICAL INFORMATION: PICC line placement. COMPARISON: Chest 12/13/2016. TECHNIQUE: Portable frontal view of the chest was obtained. FINDINGS: There is a right PICC line with its tip at the atrial/SVC junction. Both lungs are fairly well-expanded and clear of acute process. Heart size and pulmonary vascularity is normal. No gross bony abnormality seen. IMPRESSION: Unremarkable chest exam.
[2016-12-19 14:58] VITALS: BP 120/67
--- NOTE | 2016-12-19 15:44 | PN- Infect Dx ---
Subjective Subjective: MAXIMUM TEMPERATURE 100.5. He complains of increased pain in the left foot. He denies any urinary complaints. Objective Last 24 Hrs of Vital Signs/I&O Vital Signs Date Time Temp Pulse Resp B/P B/P Pulse O2 O2 Flow FiO2 Mean Ox Delivery Rate 12/19 1458 98.2 66 20 120/67 98 / 1033 100.2 / 0930 126/74 12/19 0300 100.5 85 20 122/60 93 Room Air 12/18 2145 97.4 80 20 120/70 98 Intake & Output 12/19 1600 06/08 0800 06/ 0000 Intake Total 2100 880 250 Output Total 1400 350 501 Balance 700 530 -251 Intake, IV 400 200 Intake, Oral 2100 480 50 Number 0 Bowel Movements Output, 0 Drainage Output, Stool 1 Output, Urine 1400 350 500 Physical Exam Other Physical Findings: He appears mildly uncomfortable secondary to pain in his foot Lungs are clear Heart regular rhythm with no murmur Abdomen is obese, soft, nontender with positive bowel sounds Back no CVA tenderness Extremities left foot dressing and wound VAC in place; PICC in place in the right upper extremity Results Last 24 Hours of Lab Results: Laboratory Tests 12/19 0700 Chemistry Sodium (137 - 145 mmol/L) 134 L Potassium (3.5 - 5.1 mmol/L) 4.9 Chloride (98 - 107 mmol/L) 100 Carbon Dioxide (22 - 30 mmol/L) 22 Anion Gap (5 - 16) 12 BUN (9 - 20 mg/dL) 37 H Creatinine (0.7 - 1.2 mg/dL) 1.7 H Estimated GFR (>60 ml/min) 42 L BUN/Creatinine Ratio (7 - 25 %) 21.8 Hematology CBC w Diff NO MAN DIFF REQ WBC (4.8 - 10.8 /CUMM) 14.5 H RBC (4.70 - 6.10 /CUMM) 3.04 L Hgb (14.0 - 18.0 G/DL) 8.2 L Hct (42 - 52 %) 24.8 L MCV (80.0 - 94.0 FL) 81.8 MCH (27.0 - 31.0 PG) 27.1 RDW (11.5 - 14.5 %) 17.6 H Plt Count (130 - 400 /CUMM) 338 MPV (7.4 - 10.4 FL) 8.4 Gran % (42.2 - 75.2 %) 78.2 H Lymphocytes % (20.5 - 51.1 %) 12.6 L Monocytes % (1.7 - 9.3 %) 7.5 Eosinophils % (0 - 5 %) 1.3 Basophils % (0.0 - 2.0 %) 0.4 Absolute Granulocytes (1.4 - 6.5 /CUMM) 11.4 H Absolute Lymphocytes (1.2 - 3.4 /CUMM) 1.8 Absolute Monocytes (0.10 - 0.60 /CUMM) 1.1 H Absolute Eosinophils (0.0 - 0.7 /CUMM) 0.2 Absolute Basophils (0.0 - 0.2 /CUMM) 0.1 PUBS MCHC (33.0 - 37.0 G/DL) 33.1 Last 24 Hours of Jabier Results: OR culture left foot soft tissue December 17 positive for Citrobacter sensitive to Ceftazidime, Ciprofloxacin, Gentamicin and Zosyn, Pseudomonas sensitive to Ceftazidime, Ciprofloxacin, Gentamicin, Meropenem and Zosyn, MRSA, Enterococcus sensitive to Ampicillin and possible anaerobes Blood cultures 2 December 18 negative Recent Imaging Studies: Chest x-ray December 19 negative Assessment/Plan Impression: Low-grade fevers persist with white blood cell count decreased, though still elevated, suggesting a residual infection within the left foot, now 2 days status post revisional partial first ray resection and placement of a wound VAC, with recent OR cultures (of the soft tissue of the left foot) growing gram- negative rods in addition to MRSA and Enterococcus, for which Zosyn was added to the Vancomycin, which he has been on for 5 days for what was felt to be a polymicrobial gram-positive osteomyelitis of the left foot. His creatinine has increased, possibly secondary to the Lasix, which has been discontinued, or the Vancomycin, with his dose recently decreased secondary to an elevated trough level. His H&H has decreased, possibly secondary to his recent surgery and may warrant further evaluation. He is scheduled for a return to the OR in the a.m. for further debridement/drainage and angiogram. Suggestion: 1. Await return to the OR in the a.m. 2. Follow-up final OR cultures 3. Repeat Vancomycin trough level in the a.m. 4. Further evaluation of his anemia and monitoring of his creatinine per Medicine 5. Continue Vancomycin and Zosyn pending above
[2016-12-19 22:24] VITALS: BP 110/60
--- NOTE | 2016-12-20 06:18 | PN- Housestaff ---
CORINNE PENDLETON,[facility] 12/20/16 0617: Subjective Follow-up For: Osteomyelitis JOEY Subjective: Mr Rudd was seen and examined this morning. He is resting comfortably in bed and is laconic. Patient currently is pain-free, although overnight he was extremely uncomfortable attributing this to the fact that his pain regimen is still not under adequate control. He denies any fever, chills, nausea, vomiting. He is currently nothing by mouth and expected to head to the OR later on today for an angiogram and possibly wound revision with podiatry. Review of Systems Constitutional: Reports: see HPI. Objective Last 24 Hrs of Vital Signs/I&O Vital Signs Date Time Temp Pulse Resp B/P B/P Pulse O2 O2 Flow FiO2 Mean Ox Delivery Rate 12/19 2332 98 Room Air 12/19 2224 99.8 90 20 110/60 96 Room Air 12/19 1458 98.2 66 20 120/67 98 12/19 1033 100.2 12/19 0930 126/74 Intake & Output 12/20 0800 12/20 0000 12/19 1600 Intake Total 211 797 3546 Output Total 130 312 4572 Balance -250 -200 700 Intake, IV 350 400 Intake, Oral 300 2100 Number 1 Bowel Movements Output, Urine 010 536 5443 Physical Exam General Appearance: Alert, Oriented X3, Cooperative Skin: No Rashes Skin Temp/Moisture Exam: Hot/Diaphoretic Sepsis Skin Exam (color): Normal for Ethnicity Cardiovascular: Regular Rate, Normal S1, Normal S2 Lungs: Mild Basillar Crackles Abdomen: Normal Bowel Sounds, Soft, No Tenderness Neurological: Normal Speech Extremities: Mild Bilaterral Venous Stasis Vascular: Normal Pulses Current Medications: Current Medications Sig/Zehra Start time Last Medication Dose Route Stop Time Status Admin Acetaminophen 650 MG Q6P PRN 12/12 2115 AC 12/18 PO 0627 Docusate Sodium 100 MG DAILY NEEDED PRN 12/13 1200 AC PO Furosemide 40 MG .STK-MED ONE 12/19 1834 DC IV 12/19 183 Furosemide 20 MG ONCE ONE 12/19 1745 DC 12/19 IV 12/19 174 183 Gabapentin 100 MG 4 TIMES/DAY 12/13 1000 AC 12/19 PO 2123 Heparin Sodium 5,000 UNIT Q8 12/12 2200 AC 12/20 (Porcine) SC 0535 Hydromorphone HCl 0.5 MG ONCE ONE 12/19 1600 DC /08 IV 08 1601 1549 Hydromorphone HCl 1 MG Q4 HRS NEEDED PRN 12/19 1300 AC 12/20 IV 0725 Hydromorphone HCl 1 MG Q3P PRN 12/16 1030 DC 12/19 IV 0934 Insulin Aspart 0 AT BEDTIME 12/19 2200 AC 12/19 SC 2123 Insulin Aspart 0 TIDAC/HS 12/19 1200 CAN SC Insulin Aspart 0 TIDAC 12/19 1200 DC 12/19 SC 1659 Insulin Aspart 0 TIDAC 12/17 1745 DC 12/19 SC 0933 Insulin Human Regular 0 Q6 12/19 2359 AC 12/20 SC 0535 Lisinopril 10 MG DAILY 12/12 2230 AC 12/19 PO 0930 Morphine Sulfate 15 MG Q8 12/19 2200 AC 12/20 PO 0535 Morphine Sulfate 30 MG BID 12/17 2200 DC 12/19 PO 0931 Nicotine 21 MG DAILY 12/13 1000 AC 12/19 TOP 0932 Piperacillin Sod/ 4.5 GM Q6 12/18 1800 AC 12/20 Tazobactam Sod IV 0534 Sodium Chloride 100 ML Polyethylene Glycol 17 GM DAILY 12/13 1149 AC 12/18 PO 0821 Pravastatin Sodium 80 MG 1700 12/13 1700 AC 12/19 PO 1658 Senna/Docusate Sodium 2 TAB DAILY NEEDED PRN 12/13 1200 AC PO Sodium Chloride 1,000 ML Q6H 12/19 1015 DC 12/19 IV 08 1614 1233 Vancomycin HCl 1,250 MG Q12H 12/18 0030 AC 12/20 Sodium Chloride 250 ML IV 0009 Zolpidem Tartrate 10 MG AT BEDTIME NEED.. 12/12 2115 AC 12/17 PO 2038 Last 24 Hrs of Lab/Jabier Results Last 24 Hrs of Labs/Mics: Laboratory Tests 12/20/16 0705: PT Pending, INR Pending, APTT Pending 12/20/16 0525: Sodium Pending, Potassium Pending, Chloride Pending, Carbon Dioxide Pending, Anion Gap Pending, BUN Pending, Creatinine Pending, BUN/Creatinine Ratio Pending , CBC w Diff Pending, WBC Pending, RBC Pending, Hgb Pending, Hct Pending, MCV Pending, MCH Pending, RDW Pending, Plt Count Pending, MPV Pending, PUBS MCHC Pending, Vancomycin Trough Pending 12/19/16 1606: Anion Gap 11, Estimated GFR 39 L, BUN/Creatinine Ratio 20.6 Assessment/Plan Assessment: Mr. Rudd is a 56 YO M current active smoker, with PMH of uncontrolled diabetes mellitus type 2, peripheral neuropathy, hypertension, hyperlipidemia, nonhealing ulcer of the left foot, was brought in by ambulance for fever up to 102.6, chills, painful and swollen left foot with drainage. Labs (WBC 21.8, ESR >130, CRP > 9) and imaging concerning for osteomyelitis, patient was taken to the OR by Dr. Sanchez on 12/12/16 for first ray resection. Subsequently transferred to post op. Osteomyelitis of left foot s/p resection * Vanco trough:32.0. Random Vancomycin level on 12/21/2016. Based on level in AM we can decide to proceed with additional Vancomycin coverage. * WBC decreased to 11.4 * Antibiotic increased to broaden coverage. Continue on Zosyn 4.5 g IV every 6 hours-->3.375g IV Q6 * Cultures: Citrobacter, Pseudomonas, Enterococcus, MRSA * Weight-bearing status heel touch * PP: Dilaudid 1 mg IV every 3 when necessary severe pain for breakthrough, morphine sulfate (MS Contin) 15 mg Q8, Tylenol for mild pain. Patient continues to complain of poorly controlled pain. * Appreciate ID and podiatry input Anemia * H&H stable * Monitor CBC in a.m. Peripheral vascular disease * Uncontrolled diabetic, actively smoking 2 packs per day. * Duplex left lower extremity shows increased velocities in profunda femoris artery, which is suggestive of stenosis of distal right superficial femoral artery. This critical finding was shared with vascular surgeon Dr. Prather, who mentioned that the patient should go angiogram, likely Afternoon. * Scheduled angiogram this PM. Uncontrolled Diabetes mellitus (on oral hypoglycemics) with neuropathy * hemiglobin A1c of 8.4 * Insulin NovoLog tidac, [id number],[phone] * Continue medium dose sliding scale, we also addedd a bed time sliding scale. * We'll hold home glyburide and metformin * Continue Gabapentin 100 mg 4 times a day History of Hypertension * Hold Lisinopril 10 mg daily. Current BP: 124/70 History of Hyperlipidemia * Pravastatin 80 mg daily JOEY * Held Lasix on 12/18/2016 owing to increasing BUN/creatinine. BUN and Cr today: ( 37 and 1.7). * Repeat BEP at 15.00. If Cr elevated, despite mild fluid hydration, patient might benefit from Lasix 20 mg. This is likely the result of hypoperfusion to the Kidney. If Cr elevated in am, hold TRISTEN inhibitor. Patient received a one- time dose of 20 mg IV Lasix on 12/19/2016. This a.m. his BUNs and creatinine are: 32 and 1.8. Continue Lasix 40 mg. * Echocardiogram for assessment of ejection fraction. * Formal Nephrology Consultation Obtained. Nicotine dependence * Nicotine patch 21 mg daily * Smokes 2 packs daily Sleep * Continue Zolpidem 10 mg at bedtime as needed Diet: heart healthy DVT ppx: Heparin subcutaneous and alps FULL CODE Problem List: 1. Cellulitis of left foot 2. Diabetic foot ulcer 3. Osteomyelitis of left foot 4. Diabetes 5. Multiple open wounds of right lower extremity 6. Smoking Pain Ratin Pain Location: Left foot and Chronic Back Pain Goal: Remain pain free Pain Plan: Dilaudid and MS Contin Tomorrow's Labs & Rationales: CBC: Monitor H/H in the setting of falling blood count. Monitor WBC in the setting of an Acute intection BEP: Monitor Electrolytes and Cr and BUN Consulting Request: Consulting Specialty: Infectious Disease Consulting Physician: Dr. Chi Reason for Consult: Osteomyelitis OMAR SWEET MD 12/20/16 1032: Attending MD Review Statement Attending Statement Attending MD Statement: examined this patient, discuss w/resident/PA/YARD TRUCK DRIVER, agreed w/resident/PA/YARD TRUCK DRIVER, reviewed EMR data (avail) Attending Assessment/Plan: 56M PMH HTN, HLD, T2DM, diabetic peripheral polyneuropathy admitted with sepsis secondary to acute osteomyelitis of the left foot s/p incision and drainage on by podiatry, with wound cultures growing mRSA and polymicrobial organisms. Underwent surgical revision of foot on 12/17. Patient reports his pain is much improved after changing his Dilaudid back from q4h to q3h. He is awake and alert this morning and has no complaints, saying he feels fantastic. He has mild bilateral LE edema. Lungs are clear. Creatinine 1.8 today after stopping IV fluids and giving Lasix 20mg IV last night. Last echocardiogram was in 2013 and was normal. 1. Sepsis secondary to mRSA (resolved) 2. Acute osteomyelitis of left foot 3. Right SFA stenosis 4. Peripheral arterial disease 5. T2DM with diabetic polyneuropathy Plan - Continue on general medicine - Continue Vancomycin and Zosyn - Will go to OR today - Obtain echocardiogram - Restart home Lasix - Monitor fluid status - Monitor renal function - Follow cultures - Follow ID, podiatry, vascular recommendations - Monitor fingerstick levels - Continue home medications - DVT PPx
[2016-12-20 06:30] VITALS: BP 132/70
--- NOTE | 2016-12-20 06:36 | PN- Student ---
Subjective Subjective: The pt. is sitting at the side of the bed, rocking back and forth. Last night, he stated he had 10/10 burning, throbbing pain on his left foot. He states that Dilaudid 1mg q4h was not working for him and was experiencing excrutiating pain. He received Diluadid 0.5mg IV PRN last night and stated that the pain was alleviated and was able to sleep throughout the night. The patient states that he is frustrated and feels like he is not in control of his care. He wants his pain to be better managed. Currently, he rates a 6/10 burning pain in his left foot that is slowly increasing. He received a dose of Diluadid 1mg IV and stated that his pain is going down. He ran a temp of 100.2 today, but he states that it's because he uses 3 blankets to sleep at night. Denies any fever, chills, diaphoresis, oliguria, dysuria, nausea, vomiting, diarrhea, or constipation Objective Objective: PE: General: Frustrated, but cooperative. Neuro: A&O x3 CV: RRR, no mumurs, rubs, or gallops Pulm: No crackles, wheezes, or rhonchi GI: soft, nondistended, nontender LE: 3+ pitting bilateral lower leg edema. Skin: PICC line site is clean, intact, no erythema, no edema present. ID Consult 12/19/16 Impression: Low-grade fevers persist with white blood cell count decreased, though still elevated, suggesting a residual infection within the left foot, now 2 days status post revisional partial first ray resection and placement of a wound VAC, with recent OR cultures (of the soft tissue of the left foot) growing gram- negative rods in addition to MRSA and Enterococcus, for which Zosyn was added to the Vancomycin, which he has been on for 5 days for what was felt to be a polymicrobial gram-positive osteomyelitis of the left foot. His creatinine has increased, possibly secondary to the Lasix, which has been discontinued, or the Vancomycin, with his dose recently decreased secondary to an elevated trough level. His H&H has decreased, possibly secondary to his recent surgery and may warrant further evaluation. He is scheduled for a return to the OR in the a.m. for further debridement/drainage and angiogram. Suggestion: 1. Await return to the OR in the a.m. 2. Follow-up final OR cultures 3. Repeat Vancomycin trough level in the a.m. 4. Further evaluation of his anemia and monitoring of his creatinine per Medicine 5. Continue Vancomycin and Zosyn pending above Left foot Cultures 12/19/16 Heavy growth of: 1. CITROBACTER FREUNDII 2. PSEUDOMONAS AERUGINOSA 3. ENTEROCOCCUS 4. METH RESIST STAPH AUREUS Chest Xray 12/19/16 FINDINGS: There is a right PICC line with its tip at the atrial/SVC junction. Both lungs are fairly well-expanded and clear of acute process. Heart size and pulmonary vascularity is normal. No gross bony abnormality seen. IMPRESSION: Unremarkable chest exam. Path Report DIAGNOSIS BONE AND SOFT TISSUE, LEFT FOOT, RESECTION: SKIN AND UNDERLYING SOFT TISSUE WITH NECROSIS AND MARKED ACUTE INFLAMMATION WITH ABSCESS FORMATION. BONE TISSUE WITH FOCAL FEATURES COMPATIBLE WITH ACUTE OSTEOMYELITIS. NEGATIVE FOR EVIDENCE OF MALIGNANCY. Results Results: Laboratory Tests 12/20/16 0525: Sodium Pending, Potassium Pending, Chloride Pending, Carbon Dioxide Pending, Anion Gap Pending, BUN Pending, Creatinine Pending, BUN/Creatinine Ratio Pending , CBC w Diff Pending, WBC Pending, RBC Pending, Hgb Pending, Hct Pending, MCV Pending, MCH Pending, RDW Pending, Plt Count Pending, MPV Pending, PUBS MCHC Pending, Vancomycin Trough Pending 12/19/16 1606: Anion Gap 11, Estimated GFR 39 L, BUN/Creatinine Ratio 20.6 12/19/16 0700: Anion Gap 12, Estimated GFR 42 L, BUN/Creatinine Ratio 21.8, CBC w Diff NO MAN DIFF REQ, RBC 3.04 L, MCV 81.8, MCH 27.1, RDW 17.6 H, MPV 8.4, Gran % 78.2 H, Lymphocytes % 12.6 L, Monocytes % 7.5, Eosinophils % 1.3, Basophils % 0.4, Absolute Granulocytes 11.4 H, Absolute Lymphocytes 1.8, Absolute Monocytes 1.1 H, Absolute Eosinophils 0.2, Absolute Basophils 0.1, PUBS MCHC 33.1 12/18/16 0620: Anion Gap 10, Estimated GFR 52 L, BUN/Creatinine Ratio 22.9, CBC w Diff NO MAN DIFF REQ, RBC 3.21 L, MCV 82.0, MCH 26.7 L, RDW 17.8 H, MPV 8.4, Gran % 80.8 H, Lymphocytes % 10.2 L, Monocytes % 8.0, Eosinophils % 0.7, Basophils % 0.3, Absolute Granulocytes 13.8 H, Absolute Lymphocytes 1.7, Absolute Monocytes 1.4 H, Absolute Eosinophils 0.1, Absolute Basophils 0, PUBS MCHC 32.6 L 12/17/16 0735: CBC w Diff NO MAN DIFF REQ, RBC 3.47 L, MCV 81.3, MCH 26.8 L, RDW 17.0 H, MPV 8.4, Gran % 78.5 H, Lymphocytes % 12.3 L, Monocytes % 6.5, Eosinophils % 2.4, Basophils % 0.3, Absolute Granulocytes 10.5 H, Absolute Lymphocytes 1.7, Absolute Monocytes 0.9 H, Absolute Eosinophils 0.3, Absolute Basophils 0, PUBS MCHC 33.0 Microbiology 12/18 0832 BLOOD: Blood Culture - RES 12/18 08 BLOOD: Blood Culture - RES 12/17 1206 EXTREMITIE: Gross Specimen Examination - RES CITROBACTER FREUNDII PSEUDOMONAS AERUGINOSA ENTEROCOCCUS METH RESIST STAPH AUREUS 12/17 120 EXTREMITIE: Gram Stain - RES Assessment/Plan Assessment: Assessment and Plan: Patient is a 56-year-old male with a past medical history of type II uncontrolled diabetes, hypertension, peripheral vascular disease, and osteomyelitis who presented with acute diaphoresis, fever, granulocytosis, and delrium after debridement, which is suggestive of bacteremia. 1. Osteomyelitis: He was alert and oriented x3, cognition intact, judgement was fair. Seeing that the patient had symptoms after debridement, it is possible that this patient became bacteriemic from the surgery. Vancomyocin is not efficient in killing gram negative rods, so added Zosyn for gram negative coverage. Since debridement, he has improved with Vancomycin and Zosyn. He was febrile this morning at 0630, but he denied feeling feverish and diaphoretic. WBC has improved from 17.1 to 14.5. PICC line performed yesterday and Xray confirmed it was in place. * Vancomycin 1250mg/250mL * Vanco trough level this morning is 32, we will need to decrease vancomycin dose * Per ID consult, we will add Zosyn 4.5 g IV q6h * Blood cultures and CBC * PICC line * Monitor temperature, acetaminophen PRN 2. JOEY: DDx ATN vs interstitial nephritis. To be diagnosed with ATN, he must have a rise in Cr of 0.3mg/dL over 48 hours, Cr>1.5 normal baseline, or urine volume <0.5. His Cr increased from 1.4 to 1.7 within 48 hours, which fits the criteria for ATN. The causes of ATN include hypotension, sepsis, bleeding, and nephrotoxic drugs. Since this patient shows s/s of an infection and has been started on Zosyn, this could be the cause of ATN. Infections such as streptococcus, corynebacterium diptheriae, and enterococcus can cause acute interstitital nephritis. In addition, the patient was on tramadol, which can also cause AIN. Causes: drug nephrotoxicity vs fluid overload vs cardiorenal Recently, the patient's BUN and Cr has been increasing when starting Zosyn. One of the side effects of zosyn is increased BUN and Cr, so this is the most likely reason for this increase in JOEY. In addition, piperacillin may increase the nephrotoxic effect of vancomycin. Other reasons why his renal functions have been worsening is because of fluid overload. His lungs a clear, his LE edema did not worse, so I do not suspect fluid overload. Another reason for his worsening kidney function would be cardiorenal in origin. * BUN yesterday remained at 37. When given mild fluid hydration yesterday, Cr kyle from 1.7 to 1.8. He was given Lasix 20mg IV yesterday. Cr remained at 1.8. We will hold the Lisinopril. * I&O, he was in positive fluid balance yesterday. * PICC line in place per ID request * NPO, Debridement today * Nephrology consult * Hold Lisinopril and Continue IV Lasix * Order ECHO 3. Chronic back pain: the patient states that he has localized foot pain and chronic back pain. 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 Last night, he states he was in 10/10 pain in his foot. He states that the Dilaudid 1mg q4h did not help and received 0.5mg IV PRN. We will put the patient back to dilaudid 1mg q3h. * Hydromorphone 1mg q4h IV PRN for break through pain * Morphine sulfate 15mg PO BID for fci pain relief * Warm compress for back pain * Bowel regimen if patient has been constipated for 3 days. 4. Uncontrolled DM: We will need to continue to monitor his diabetes * Novolin q6h SQ per sliding scale * Gabapentin 100mg PO q6h * Hold home DM meds 5. Peripheral Vascular disease: Elevated the legs when possible. Angiogram on Friday 6. HTN * Lisinopril 10mg PO * Furosemide given yesterday. will see what Cr is today. 7. Hyperlipidemia * Continue pravastatin 8. Nicotine Dependence * Smokes 2 packs a day. Put him on a nicotine patch. * Smoking cessation education 9. Normocytic anemia: the patient's Hgb decreased from 8.6 to 8.2 today. His admitting ferritin is high, which would be suggestive of CKD as the cause of the normocytic anemia. Since he has JOEY, this may be worsening his anemia. He is asymptomatic, so we will monitor his CBC tomorrow. If his Hgb continues to decrease AND he is symptomatic, then we may have to consider blood transfusion.
--- NOTE | 2016-12-20 07:51 | Patient Discharge Instructions ---
Discharge Instructions General Discharge Information You were seen/treated for: Osteomylitis Diabetes Chronic Pain You had these procedures: Open incision and drainage Open partial first ray resection left foot Excisional debridement Watch for these problems: If you feel weak, experience chest pain, shortness breath, or fever, chills, nausea, vomiting or increased weakness please come back to the emergency department. Special Instructions: Please follow-up with your primary care physician within 7 days of discharge. Please inform your primary care physician of this admission to the hospital. Please inform the primary for this care physician of the treatment administered to you. Please follow-up with the lumber mover within 7 days. We have provided you referral. Please take your antibiotics as previously prescribed. Please have a Vancomycin trough level drawn every week. Please have a CBC drawn every week. Please have a BEP (with BUN/Cr) drawn every week. Please have a sedimentation rate (ESR) drawn every week. Diet Continue normal diet: No Recommended Diet: Diabetic Activity Full Activity/No Limits: No Acute Coronary Syndrome Inclusion Criteria At DC or during hospital stay patient has or had the following: ACS DIAGNOSIS No Discharge Core Measures Meds if any: Prescribed or Continued at Discharge Meds if any: NOT Prescribed or Continued at Discharge Congestive Heart Failure Inclusion Criteria At DC or during hospital stay patient has or had the following: CHF DIAGNOSIS No Discharge Core Measures Meds if any: Prescribed or Continued at Discharge Meds if any: NOT Prescribed or Continued at Discharge Cerebrovascular accident Inclusion Criteria At DC or during hospital stay patient has or had the following: CVA/TIA Diagnosis No Discharge Core Measures Meds if any: Prescribed or Continued at Discharge Meds if any: NOT Prescribed or Continued at Discharge Venous thromboembolism Inclusion Criteria VTE Diagnosis No VTE Type NONE VTE Confirmed by (Test) NONE Discharge Core Measures - Per Current guidelines, there needs to be overlap - treatment for the first 5 days of Warfarin therapy. - If discharged on Warfarin prior to 5 days of - overlap therapy, the patient will need to be - assessed for post discharge needs including - *Post discharge parental anticoagulation - *Warfarin and/or parental anticoagulation education - *Follow up date to check INR post discharge At least 5 days overlap therapy as Inpatient No Meds if any: Prescribed or Continued at Discharge Note: Overlap Therapy is Warfarin and Anticoagulant Meds if any: NOT Prescribed or Continued at Discharge
[2016-12-20 08:18] LABS: PTT 32 SEC (25-37)
[2016-12-20 08:31] LABS: ABSOLUTE BASOPHIL COUNT 0 /CUMM (0.0-0.2); ABSOLUTE EOSINOPHIL COUNT 0.3 /CUMM (0.0-0.7); ABSOLUTE GRANULOCYTE CT 8.9 /CUMM (1.4-6.5); ABSOLUTE LYMPH COUNT 1.5 /CUMM (1.2-3.4); ABSOLUTE MONOCYTE COUNT 0.8 /CUMM (0.10-0.60); BASOPHIL % 0.3 % (0.0-2.0); EOSINOPHIL % 2.3 % (0-5); GRANULOCYTE % 77.3 % (42.2-75.2); HEMATOCRIT 25.4 % (42-52); MEAN CORPUSCULAR HGB 26.7 PG (27.0-31.0); MEAN CORPUSCULAR HGB CONC 32.4 G/DL (33.0-37.0); MEAN CORPUSCULAR VOLUME 82.3 FL (80.0-94.0); MEAN PLATELET VOLUME 8.1 FL (7.4-10.4); PLATELET COUNT 321 /CUMM (130-400); RBC DISTRIBUTION WIDTH 17.8 % (11.5-14.5); RED BLOOD CELL CT 3.09 /CUMM (4.70-6.10); WHITE BLOOD CELL COUNT 11.4 /CUMM (4.8-10.8)
[2016-12-20 14:38] VITALS: BP 120/80
--- NOTE | 2016-12-20 14:42 | NUR ---
PATIENT BLADDER SCANNED, 71ML RESIDUAL. DR. BARNES NOTIFIED. NO FURTHER ORDERS AT THIS TIME.
--- NOTE | 2016-12-20 15:22 | PN- Infect Dx ---
Subjective Subjective: MAXIMUM TEMPERATURE 100.4. He continues to complain of pain in the left foot but offers no other complaints. A bladder scan performed earlier today revealed 70 mL of residual urine. Objective Last 24 Hrs of Vital Signs/I&O Vital Signs Date Time Temp Pulse Resp B/P B/P Pulse O2 O2 Flow FiO2 Mean Ox Delivery Rate 12/20 1438 97.8 72 20 120/80 98 Room Air 12/20 1132 Room Air Room Air 12/20 0926 124/70 12/20 0630 100.4 86 18 132/70 92 Room Air 12/19 2332 98 Room Air 12/19 2224 99.8 90 20 110/60 96 Room Air Intake & Output 12/20 1600 12/20 0800 12/20 0000 Intake Total 350 700 Output Total 625 900 Balance -275 -200 Intake, IV 350 400 Intake, Oral 300 Number 1 Bowel Movements Output, 25 Drainage Output, Urine 600 900 Physical Exam Other Physical Findings: He appears comfortable in no acute distress Lungs are clear Heart regular rhythm with no murmur Extremities left foot dressing intact, with wound VAC in place; PICC in the right upper extremity with no inflammation at the site Results Last 24 Hours of Lab Results: Laboratory Tests 12/20 12/20 12/19 0705 0525 1606 Chemistry Sodium (137 - 145 mmol/L) 136 L 136 L Potassium (3.5 - 5.1 mmol/L) 4.9 5.0 Chloride (98 - 107 mmol/L) 101 99 Carbon Dioxide (22 - 30 mmol/L) 25 25 Anion Gap (5 - 16) 10 11 BUN (9 - 20 mg/dL) 32 H 37 H Creatinine (0.7 - 1.2 mg/dL) 1.8 H 1.8 H Estimated GFR (>60 ml/min) 39 L 39 L BUN/Creatinine Ratio (7 - 25 %) 17.8 20.6 Coagulation PT (9.4 - 12.5 SEC) 15.0 H INR (0.90 - 1.17) 1.43 H APTT (25 - 37 SEC) 32 Hematology CBC w Diff NO MAN DIFF REQ WBC (4.8 - 10.8 /CUMM) 11.4 H RBC (4.70 - 6.10 /CUMM) 3.09 L Hgb (14.0 - 18.0 G/DL) 8.3 L Hct (42 - 52 %) 25.4 L MCV (80.0 - 94.0 FL) 82.3 MCH (27.0 - 31.0 PG) 26.7 L RDW (11.5 - 14.5 %) 17.8 H Plt Count (130 - 400 /CUMM) 321 MPV (7.4 - 10.4 FL) 8.1 Gran % (42.2 - 75.2 %) 77.3 H Lymphocytes % (20.5 - 51.1 %) 13.2 L Monocytes % (1.7 - 9.3 %) 6.9 Eosinophils % (0 - 5 %) 2.3 Basophils % (0.0 - 2.0 %) 0.3 Absolute Granulocytes (1.4 - 6.5 /CUMM) 8.9 H Absolute Lymphocytes (1.2 - 3.4 /CUMM) 1.5 Absolute Monocytes (0.10 - 0.60 /CUMM) 0.8 H Absolute Eosinophils (0.0 - 0.7 /CUMM) 0.3 Absolute Basophils (0.0 - 0.2 /CUMM) 0 PUBS MCHC (33.0 - 37.0 G/DL) 32.4 L Toxicology Vancomycin Trough (10.0 - 20.0 ug/mL) 32.0 H Last 24 Hours of Jabier Results: Blood cultures December 18 negative Assessment/Plan Impression: Low-grade fevers persist though white blood cell count continues to decrease now 3 days status post revisional partial first ray resection and placement of a wound VAC, with recent OR cultures (of the soft tissue of the left foot) growing Pseudomonas and Citrobacter in addition to MRSA and Enterococcus, and he is now on Zosyn in addition to Vancomycin, Day 6 of treatment for a polymicrobial gram- positive osteomyelitis of the left foot. His creatinine has increased further, possibly secondary to the Lasix, which has been discontinued, or other medications, including the Vancomycin, and, given the elevated Vancomycin level, this will need to be held. He has no evidence for urinary retention based on his bladder scan. He is scheduled for a return to the OR later today for further debridement/drainage and angiogram. Suggestion: 1. Await return to the OR later today 2. Renal evaluation if his creatinine does not improve 3. Discontinue Vancomycin 4. Vancomycin random level in the a.m., with redosing of Vancomycin if it is less than 15 5. Decrease Zosyn to 3.375 g IV every 6 hours
--- NOTE | 2016-12-20 16:10 | Cons- Nephrology ---
General Information and HPI Consulting Request Date of Consult: 12/20/16 Requested By: KWAKU HERRON M.D History of Present Illness: Asked to see this 56 yo gentleman for JOEY. MR. Rudd is a 56 yo gentleman with longstanding DM (> 20 yrs) admitted with a foot infection. 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 He had continue to smoke up until he was admitted and has not had good medical f /u not having seen an opthamologist (according to the patient). Prior labs show proteinuria dating as far back as 1996 (100-300 mg/dl) Creatinine was in the low 1's on admission He was continued on his furosemide but had marked decrease in po intake here in the hospital. He was also placed on vancomycin with highis trough levels (21 6 35 6/). Allergies/Medications Allergies: Coded Allergies: NO KNOWN ALLERGIES (10/10/15) Home Med List: Furosemide 40 MG TABLET 1 TAB PO DAILY DIURETIC (Reported) Gabapentin 100 MG CAPSULE 1 CAP PO 4XDAILY NERVE PAIN (Reported) Glyburide 5 MG TABLET 1 TAB PO BID DM (Reported) Hydrocodone/Acetaminophen (Hydrocodon-Acetaminophn 10-325) 10 MG-325 MG TABLET 1 TAB PO 4XDAILY PAIN (Reported) Lisinopril 10 MG TABLET 1 TAB PO DAILY BP (Reported) Metformin HCl 1,000 MG TABLET 1 TAB PO BID DM (Reported) Morphine Sulfate (Morphine Sulfate ER) 15 MG TABLET.ER 1 TAB PO BID PAIN ( Reported) Pravastatin Sodium (Pravachol) 80 MG TABLET 1 TAB PO DAILY CHOLESTEROL ( Reported) Zolpidem Tartrate (Ambien) 10 MG TABLET 1 TAB PO PRN SLEEP (Reported) Review of Systems Review of Systems: As in HPI otherwise negative Past History Travel History Traveled to [place] past 21 day No Medical History Neurological: NONE EENT: NONE Cardiovascular: hypertension, hyperlipidemia Respiratory: NONE Gastrointestinal: NONE Hepatic: NONE Renal: NONE Musculoskeletal: NONE Psychiatric: NONE Endocrine: diabetes Blood Disorders: NONE Cancer(s): NONE 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 Psychosocial History Where Do You Live? Home Who Do You Live With? spouse Services at Home: None Primary Language: Serbian Smoking Status: Current Everyday Smoker (2ppd) ETOH Use: denies use Illicit Drug Use: denies illicit drug use Functional Ability ADLs Independent: dressing, eating, toileting, bathing. Ambulation: independent IADLs Independent: shopping, housework, finances, food prep, telephone, transportation , medication admin. Exam & Diagnostic Data Vital Signs and I&O 97.8 72 120/80 Pleasant M NAD Skin neg rash Eyes anciteric ENT moist Lungs clear Cor RRR Abd obsese NT Ext chronic edema foot bandaged with wound vac Results Pertinent Lab Results: Laboratory Tests 12/20 12/20 12/19 0705 0525 1606 Chemistry Sodium (137 - 145 mmol/L) 136 L 136 L Potassium (3.5 - 5.1 mmol/L) 4.9 5.0 Chloride (98 - 107 mmol/L) 101 99 Carbon Dioxide (22 - 30 mmol/L) 25 25 Anion Gap (5 - 16) 10 11 BUN (9 - 20 mg/dL) 32 H 37 H Creatinine (0.7 - 1.2 mg/dL) 1.8 H 1.8 H Estimated GFR (>60 ml/min) 39 L 39 L BUN/Creatinine Ratio (7 - 25 %) 17.8 20.6 Coagulation PT (9.4 - 12.5 SEC) 15.0 H INR (0.90 - 1.17) 1.43 H APTT (25 - 37 SEC) 32 Hematology CBC w Diff NO MAN DIFF REQ WBC (4.8 - 10.8 /CUMM) 11.4 H RBC (4.70 - 6.10 /CUMM) 3.09 L Hgb (14.0 - 18.0 G/DL) 8.3 L Hct (42 - 52 %) 25.4 L MCV (80.0 - 94.0 FL) 82.3 MCH (27.0 - 31.0 PG) 26.7 L RDW (11.5 - 14.5 %) 17.8 H Plt Count (130 - 400 /CUMM) 321 MPV (7.4 - 10.4 FL) 8.1 Gran % (42.2 - 75.2 %) 77.3 H Lymphocytes % (20.5 - 51.1 %) 13.2 L Monocytes % (1.7 - 9.3 %) 6.9 Eosinophils % (0 - 5 %) 2.3 Basophils % (0.0 - 2.0 %) 0.3 Absolute Granulocytes (1.4 - 6.5 /CUMM) 8.9 H Absolute Lymphocytes (1.2 - 3.4 /CUMM) 1.5 Absolute Monocytes (0.10 - 0.60 /CUMM) 0.8 H Absolute Eosinophils (0.0 - 0.7 /CUMM) 0.3 Absolute Basophils (0.0 - 0.2 /CUMM) 0 PUBS MCHC (33.0 - 37.0 G/DL) 32.4 L Toxicology Vancomycin Trough (10.0 - 20.0 ug/mL) 32.0 H 06/08 06/07 0700 0620 Chemistry Sodium (137 - 145 mmol/L) 134 L 134 L Potassium (3.5 - 5.1 mmol/L) 4.9 4.7 Chloride (98 - 107 mmol/L) 100 101 Carbon Dioxide (22 - 30 mmol/L) 22 23 Anion Gap (5 - 16) 12 10 BUN (9 - 20 mg/dL) 37 H 32 H Creatinine (0.7 - 1.2 mg/dL) 1.7 H 1.4 H Estimated GFR (>60 ml/min) 42 L 52 L BUN/Creatinine Ratio (7 - 25 %) 21.8 22.9 Hematology CBC w Diff NO MAN DIFF REQ NO MAN DIFF REQ WBC (4.8 - 10.8 /CUMM) 14.5 H 17.1 H RBC (4.70 - 6.10 /CUMM) 3.04 L 3.21 L Hgb (14.0 - 18.0 G/DL) 8.2 L 8.6 L Hct (42 - 52 %) 24.8 L 26.3 L MCV (80.0 - 94.0 FL) 81.8 82.0 MCH (27.0 - 31.0 PG) 27.1 26.7 L RDW (11.5 - 14.5 %) 17.6 H 17.8 H Plt Count (130 - 400 /CUMM) 338 330 MPV (7.4 - 10.4 FL) 8.4 8.4 Gran % (42.2 - 75.2 %) 78.2 H 80.8 H Lymphocytes % (20.5 - 51.1 %) 12.6 L 10.2 L Monocytes % (1.7 - 9.3 %) 7.5 8.0 Eosinophils % (0 - 5 %) 1.3 0.7 Basophils % (0.0 - 2.0 %) 0.4 0.3 Absolute Granulocytes (1.4 - 6.5 /CUMM) 11.4 H 13.8 H Absolute Lymphocytes (1.2 - 3.4 /CUMM) 1.8 1.7 Absolute Monocytes (0.10 - 0.60 /CUMM) 1.1 H 1.4 H Absolute Eosinophils (0.0 - 0.7 /CUMM) 0.2 0.1 Absolute Basophils (0.0 - 0.2 /CUMM) 0.1 0 PUBS MCHC (33.0 - 37.0 G/DL) 33.1 32.6 L Assessment/Plan Assessment/Recommendations Assessment: JOEY. The differential diagnosis is long but I agree with Dr. Chi that the two main causes are excess diiuresis with lasix (decreased salt intake in hospital) and vancomycin. The later dose has been adjusted and part of today's trough is related to his JOEY. Infection can also case JOEY (AIN/infectious GN) but these are less likely. I agree with holding lasix and giving IVF as well as adjustment in vancomycin. CKD may be related to HTN and longstanding DM. Please check a formal 24 hr urine for protein/Cr, SPEP, UPEP and LOREE as part of this workup. Thanks will follow. Larry Shahid MD Recommendations: .
--- NOTE | 2016-12-20 17:37 | Operative Report ---
Operative/Inv Procedure Report Surgery Date: 12/20/16 Name of Procedure: -Ultrasound-guided right common femoral artery access -Aortogram -Third order left leg angiogram -Angioplasty of left SFA -Stenting of left SFA -Angioplasty of left tibioperoneal trunk Pre-Operative Diagnosis: Nonhealing wound of left foot Post-Operative Diagnosis: Same Estimated Blood Loss: scant Surgeon/Digital Color Press Operator: SOLO OAKLEY MD Anesthesia: general endotracheal tube Operative/Procedure Note Note: Patient is a 56-year-old gentleman who was admitted to [facility] with severe infection of the left foot and sepsis. He underwent debridement by podiatry. Arterial ultrasound of the left lower extremity showed severe stenosis of the left SFA. The patient was scheduled for left leg angiogram with possible intervention. The nature of the procedure including is possible complications including but not limited to bleeding, infection, blood clots, injury to vessels, and need for re-intervention were discussed. An informed consent was obtained. Dr. Sanchez came to the operating room and did debridement and washout of the left foot after my case. For the details of his part, please refer to Dr. Sanchez op note. Patient was taken to the operating room and placed supine on the table. A timeout was called according to the protocol. After satisfactory induction of anesthesia, the patient was prepped and draped in standard surgical fashion. Using an ultrasound, right common femoral artery was accessed using micropuncture technique. A Bentson wire was advanced into the aorta under direct fluoroscopic guidance. The micropuncture sheath was exchanged with a short 5 Brazilian sheath. Then an Omni Flush catheter was advanced over the wire and placed into the abdominal aorta. On this position, an aortogram was performed with findings outlined below. Using the Omni Flush catheter and Glidewire, left iliac artery system was selected. The iliac bifurcation was high and the takeoff of the hypogastric was also high. Getting into the external iliac artery was challenging. Nevertheless, the wire was advanced into the left common femoral artery. The Omni Flush catheter was advanced over the wire and placed into the proximal left common femoral artery. This position, left leg Jocelyn Forrest was performed with findings outlined below. Then a long Bentson wire was advanced into the mid SFA. The short 5 Brazilian sheath was exchanged with a 55 cm 6 Brazilian Ansell sheath. The Ansell sheath was advanced over the wire and placed into the mid SFA under direct fluoroscopic guidance. 8000 units of heparin was given. Then with the aid of a glide catheter and Bentson wire, I was able to cross the stenosis in the SFA. SFA Jocelyn Blasi was performed with a 5 x 120 mm followed by 6 x 100 mm balloon. Then the stenotic area was stented using 6 x 100 mm [employer] innova stent. Post stenting Jocelyn Blasi was performed with a 6 x 100 mm balloon. After angioplasty and stenting, angiogram showed brisk flow through the SFA. Then the Bentson wire was exchanged with V 14 wire with the aid of 100 cm 5 Brazilian glide catheter. The wire was advanced into the peroneal artery. Then using a 3 x 40 mm balloon, angioplasty of tibioperoneal trunk was performed. After angioplasty angiogram through the catheter in the popliteal artery showed 3 vessel runoff to the foot. Wires and catheters were removed. The Ansell sheath was then exchanged with a short 6 Brazilian sheath. The puncture site was then closed using Exoseal device. 5 minutes of manual pressure was applied to the right groin. Sterile dressing was then applied to the puncture site. The patient tolerated the procedure well and was transferred to the recovery room after Dr. Sanchez was done with this part. Radiographic findings: -Patent aorta, bilateral common iliac, external iliac, and internal iliac arteries with no significant disease. There is a high bifurcation of the iliac arteries. There is also high takeoff of bilateral hypogastric arteries. Iliac arteries are tortuous. -Patent left common femoral and profunda femoris with no significant disease -Patent SFA with greater than 50% stenosis in the mid section. There was also to short segment plaque distal to the stenosis. Resolution of the stenosis in the SFA after angioplasty and stenting with brisk flow -Patent popliteal artery. Anterior tibial arteries patent from it's origin and its in-line flow to the foot. Tibioperoneal trunk is patent with diffuse stenosis. Peroneal artery and posterior tibial arteries are patent and are in- line flow to the foot. Resolution of the stenosis and TP trunk after angioplasty
--- NOTE | 2016-12-20 17:52 | Operative Report ---
Operative/Inv Procedure Report Surgery Date: 12/20/16 Name of Procedure: 1 open incision and drainage deep to the deep fascia with exposure of the flexor tendon and tendon sheath multiple sites left foot 2 intraoperative administration of ankle block anesthesia 3 excisional debridement Pre-Operative Diagnosis: 1 open infected wound left foot 2 osteomyelitis left foot 3 diabetic peripheral neuropathy 4 peripheral arterial disease Post-Operative Diagnosis: The same Estimated Blood Loss: less than 50ml Surgeon/Inker And Opaquer: MARIBELL GUTIERREZ DPM Anesthesia: moderate sedation, block Operative/Procedure Note Note: After obtaining informed consent the patient was brought to the operating room and placed on the operating table in the supine position. The patient isn't securely fastened to the operating table utilizing safety belt. After administration of IV sedation, 10 mL of 0.5% Marcaine plain was infiltrated about the patient's left ankle. The patient underwent angioplasty and stenting of the left lower extremity with the vascular service. The left foot and ankle within scrubbed prepped and draped in usual aseptic manner. Attention directed the medial aspect the left foot and ankle, where a large full-thickness necrotic was identified. A 15 blade visualized sharply revised skin margins. The dissection was then carried down deep to the D fashion with exposure of the extensor and flexor tendon and tendon sheath multiple sites, both proximally and distally. All necrotic nonviable infected tissue sharply evacuated from the wound bed. Nipple was then irrigated with 3 L of normal sterile saline fissure 50,000 units of bacitracin. Following this, the foot was redraped and the surgeon's top was changed clean gloves. Any bleeding vessels identified were cauterized or ligated as encountered. The foot was then packed with iodoform followed by 4 x 4's EBD pads Kerlix and Coban. The patient was noted to tolerate both procedure and anesthesia well and the patient was transported from the operating room to recovery with vital signs stable.
--- NOTE | 2016-12-20 18:49 | NUR ---
SHIFT NOTE: UNEVENTFUL SHIFT. PATIENT REAMINED STABLE THROUGHOUT THE SHIFT. PAIN CONTROLLED VIA PRN DILAUDID AND SCHEDULED MEDICATIONS OTC. PATIENT STATED THAT HIS PAIN WAS WELL CONTROLLED TODAY. OTHERWISE, HE REAMINED STABLE. WENT DOWN FOR ANGIOGRAM EARLIER THIS AFTERNOON. PATIENT NOT BACK DURING THIS SHIFT. WILL REPORT TO UNCOMING RN SANYA WHO WILL MOST LIKELY TAKE REPORT S/P PATIENT'S ANGIO + REVISION OF THE LEFT FOOT.
[2016-12-20 22:41] VITALS: BP 160/70
--- NOTE | 2016-12-20 23:17 | PN- Vascular Surgery ---
Subjective Subjective: POST-OP NOTE: Reports pain is better after receiving iv dilaudid. No complaints at this time. Objective Vital Signs and I&Os Vital Signs Date Time Temp Pulse Resp B/P B/P Pulse O2 O2 Flow FiO2 Mean Ox Delivery Rate 12/20 2241 97.7 113 20 160/70 98 Room Air 12/20 1438 97.8 72 20 120/80 98 Room Air 12/20 1132 Room Air Room Air 12/20 0926 124/70 12/20 0630 100.4 86 18 132/70 92 Room Air 12/19 2332 98 Room Air Intake & Output 12/20 1600 12/20 0800 12/20 0000 / 1600 12/19 0000 Intake Total 200 259 766 0697 880 250 Output Total 800 311 211 1641 350 501 Balance -600 -275 -200 700 530 -251 Intake, IV 350 400 400 200 Intake, Oral 971 916 1123 480 50 Number 1 0 Bowel Movements Output, 25 0 Drainage Output, Stool 1 Output, Urine 800 171 987 5326 350 500 Physical Exam: Extremities - right groin dressing c/d/i. no hematoma. left foot wrapped. wound vac at bedside, not yet connected. Current Medications: Current Medications Sig/Zehra Start time Last Medication Dose Route Stop Time Status Admin Acetaminophen 650 MG Q6P PRN 12/12 2115 AC 12/18 PO 0627 Clopidogrel Bisulfate 75 MG DAILY 12/20 1730 AC 12/20 PO 2031 Docusate Sodium 100 MG DAILY NEEDED PRN 12/13 1200 AC PO Fentanyl Citrate 250 MCG .STK-MED ONE 12/20 1435 DC IM 12/20 1436 Furosemide 40 MG DAILY 12/21 1000 AC PO Gabapentin 100 MG 4 TIMES/DAY 12/13 1000 AC 12/20 PO 2221 Heparin Sodium 5,000 UNIT Q8 12/12 2200 AC 12/20 (Porcine) SC 2221 Hydromorphone HCl 1 MG Q3P PRN 12/20 1545 AC 12/20 IV 2245 Hydromorphone HCl 1 MG Q3 PRN 12/20 0800 DC 12/20 IV 1337 Hydromorphone HCl 1 MG Q4 HRS NEEDED PRN 12/19 1300 DC 12/20 IV 0725 Insulin Aspart 0 TIDAC 12/21 0800 AC SC Insulin Aspart 0 AT BEDTIME 12/19 2200 AC 12/19 SC 2123 Insulin Human Regular 0 Q6 12/19 2359 DC 12/20 SC 1207 Lisinopril 10 MG DAILY 12/12 2230 DC 12/19 PO 0930 Midazolam HCl 2 MG .STK-MED ONE 12/20 1435 DC IM 12/20 1436 Morphine Sulfate 15 MG Q8 12/19 2200 12/20 PO 2221 Nicotine 21 MG DAILY 12/13 1000 AC 12/20 TOP 0925 Non-Formulary 0 SEE ADMIN CRITERIA 12/20 1545 CAN Medication ANY Piperacillin Sod/ 3.375 GM Q6H 12/20 2030 AC 12/20 Tazobactam Sod IV 2031 Sodium Chloride 100 ML Piperacillin Sod/ 3.375 GM Q6H 12/20 2015 DC Tazobactam Sod IV Sodium Chloride 50 ML Piperacillin Sod/ 3.375 GM Q6 12/20 1800 DC Tazobactam Sod IV Sodium Chloride 50 ML Piperacillin Sod/ 4.5 GM Q6 12/18 1800 DC 12/20 Tazobactam Sod IV 1207 Sodium Chloride 100 ML Polyethylene Glycol 17 GM DAILY 12/13 1149 AC 12/18 PO 0821 Pravastatin Sodium 80 MG 1700 12/13 1700 AC 12/19 PO 1658 Senna/Docusate Sodium 2 TAB DAILY NEEDED PRN 12/13 1200 AC PO Vancomycin HCl 1,250 MG Q12H 12/18 0030 DC 12/20 Sodium Chloride 250 ML IV 0009 Zolpidem Tartrate 10 MG AT BEDTIME NEED.. 12/12 2115 AC 12/17 PO 2038 Results Last 48 Hours of Labs: Laboratory Tests 12/20 12/20 12/19 0705 0525 1606 Chemistry Sodium (137 - 145 mmol/L) 136 L 136 L Potassium (3.5 - 5.1 mmol/L) 4.9 5.0 Chloride (98 - 107 mmol/L) 101 99 Carbon Dioxide (22 - 30 mmol/L) 25 25 Anion Gap (5 - 16) 10 11 BUN (9 - 20 mg/dL) 32 H 37 H Creatinine (0.7 - 1.2 mg/dL) 1.8 H 1.8 H Estimated GFR (>60 ml/min) 39 L 39 L BUN/Creatinine Ratio (7 - 25 %) 17.8 20.6 Coagulation PT (9.4 - 12.5 SEC) 15.0 H INR (0.90 - 1.17) 1.43 H APTT (25 - 37 SEC) 32 Hematology CBC w Diff NO MAN DIFF REQ WBC (4.8 - 10.8 /CUMM) 11.4 H RBC (4.70 - 6.10 /CUMM) 3.09 L Hgb (14.0 - 18.0 G/DL) 8.3 L Hct (42 - 52 %) 25.4 L MCV (80.0 - 94.0 FL) 82.3 MCH (27.0 - 31.0 PG) 26.7 L RDW (11.5 - 14.5 %) 17.8 H Plt Count (130 - 400 /CUMM) 321 MPV (7.4 - 10.4 FL) 8.1 Gran % (42.2 - 75.2 %) 77.3 H Lymphocytes % (20.5 - 51.1 %) 13.2 L Monocytes % (1.7 - 9.3 %) 6.9 Eosinophils % (0 - 5 %) 2.3 Basophils % (0.0 - 2.0 %) 0.3 Absolute Granulocytes (1.4 - 6.5 /CUMM) 8.9 H Absolute Lymphocytes (1.2 - 3.4 /CUMM) 1.5 Absolute Monocytes (0.10 - 0.60 /CUMM) 0.8 H Absolute Eosinophils (0.0 - 0.7 /CUMM) 0.3 Absolute Basophils (0.0 - 0.2 /CUMM) 0 PUBS MCHC (33.0 - 37.0 G/DL) 32.4 L Toxicology Vancomycin Trough (10.0 - 20.0 ug/mL) 32.0 H 06/08 0700 Chemistry Sodium (137 - 145 mmol/L) 134 L Potassium (3.5 - 5.1 mmol/L) 4.9 Chloride (98 - 107 mmol/L) 100 Carbon Dioxide (22 - 30 mmol/L) 22 Anion Gap (5 - 16) 12 BUN (9 - 20 mg/dL) 37 H Creatinine (0.7 - 1.2 mg/dL) 1.7 H Estimated GFR (>60 ml/min) 42 L BUN/Creatinine Ratio (7 - 25 %) 21.8 Hematology CBC w Diff NO MAN DIFF REQ WBC (4.8 - 10.8 /CUMM) 14.5 H RBC (4.70 - 6.10 /CUMM) 3.04 L Hgb (14.0 - 18.0 G/DL) 8.2 L Hct (42 - 52 %) 24.8 L MCV (80.0 - 94.0 FL) 81.8 MCH (27.0 - 31.0 PG) 27.1 RDW (11.5 - 14.5 %) 17.6 H Plt Count (130 - 400 /CUMM) 338 MPV (7.4 - 10.4 FL) 8.4 Gran % (42.2 - 75.2 %) 78.2 H Lymphocytes % (20.5 - 51.1 %) 12.6 L Monocytes % (1.7 - 9.3 %) 7.5 Eosinophils % (0 - 5 %) 1.3 Basophils % (0.0 - 2.0 %) 0.4 Absolute Granulocytes (1.4 - 6.5 /CUMM) 11.4 H Absolute Lymphocytes (1.2 - 3.4 /CUMM) 1.8 Absolute Monocytes (0.10 - 0.60 /CUMM) 1.1 H Absolute Eosinophils (0.0 - 0.7 /CUMM) 0.2 Absolute Basophils (0.0 - 0.2 /CUMM) 0.1 PUBS MCHC (33.0 - 37.0 G/DL) 33.1 Assessment/Plan Assessment/Plan This 56 year old male with history of diabetes, peripheral neuropathy, and PAD, presented with nonhealing left first toe ulcer, who is now POD#0 s/p angioplasty /stent of left SFA, angioplasty of left tibioperoneal trunk, via right groin percutaneous access advance diet as tolerated iv antibiotics pain control as ordered per primary team plavix management of left foot as per s/p laying flat 3 hrs post-angio with no evidence of hematoma will d/w vascular surgeon Core Measures/Miscellaneous Venous Thromboembolism VTE Risk Factors: Age > 40, Immobility, paresis VTE Contraindications: No Contraindications VTE Diagnosis: No VTE Type: NONE VTE Confirmed by (Test): NONE Beta Lou Is Beta Lou a Home Med? No Antibiotics Is Patient on Antibiotics? Yes If Yes: infection
[2016-12-21 00:26] VITALS: BP 140/70
[2016-12-21 06:00] VITALS: BP 92/50
--- NOTE | 2016-12-21 07:45 | PN- Housestaff ---
See Addendum Subjective Follow-up For: Osteomyelitis JOEY Subjective: Mr Rudd was seen and examined this morning. Is resting comfortably on the chair beside his bed. Patient denies any issues at the moment. States that he was on a pain overnight. Currently states that his pain is well controlled. Denies any fever, chills, nausea, vomiting. Tolerating by mouth intake well. Denies any heart palpitations or chest discomfort. Review of Systems Constitutional: Reports: see HPI. Objective Last 24 Hrs of Vital Signs/I&O Vital Signs Date Time Temp Pulse Resp B/P B/P Pulse O2 O2 Flow FiO2 Mean Ox Delivery Rate 12/21 599 98.1 76 20 92/50 98 Room Air 12/21 0026 100.1 105 20 140/70 96 Room Air 12/20 2241 97.7 113 20 160/70 98 Room Air 12/20 1438 97.8 72 20 120/80 98 Room Air 12/20 1132 Room Air Room Air 12/20 0926 124/70 Intake & Output 12/21 1600 12/21 0800 12/21 0000 Intake Total 500 Output Total 1150 1200 Balance -1150 -700 Intake, IV 100 Intake, Oral 400 Output, Urine 1150 1200 Physical Exam General Appearance: Alert, Oriented X3, Cooperative Lymphatic: Axillary nl Cardiovascular: Regular Rate, Normal S1, Normal S2 Lungs: Clear to Auscultation Abdomen: Normal Bowel Sounds, Soft, No Tenderness, Distended Neurological: Normal Speech Extremities: No Clubbing, Bilaterral. Venous Stasis Current Medications: Current Medications Sig/Zehra Start time Last Medication Dose Route Stop Time Status Admin Acetaminophen 650 MG Q6P PRN 12/12 2115 AC 12/18 PO 0627 Clopidogrel Bisulfate 75 MG DAILY 12/20 1730 AC 12/21 PO 0859 Docusate Sodium 100 MG DAILY NEEDED PRN 12/13 1200 AC PO Fentanyl Citrate 250 MCG .STK-MED ONE 12/20 1435 DC IM 12/20 1436 Furosemide 40 MG DAILY 12/21 1000 DC 12/21 PO 0859 Gabapentin 100 MG 4 TIMES/DAY 12/13 1000 AC 12/21 PO 0859 Heparin Sodium 5,000 UNIT Q8 12/12 2200 AC 12/21 (Porcine) SC 0550 Hydromorphone HCl 0.6 MG ONCE PRN 12/21 0045 AC 12/21 IV 0056 Hydromorphone HCl 1 MG Q3P PRN 12/20 1545 AC 12/21 IV 0639 Hydromorphone HCl 1 MG Q3 PRN 12/20 0800 DC 12/20 IV 1337 Insulin Aspart 0 TIDAC 12/21 0800 AC 12/21 SC 0858 Insulin Aspart 0 AT BEDTIME 12/19 2200 AC 12/19 SC 2123 Insulin Human Regular 0 Q6 12/19 2359 DC 12/20 SC 1207 Lisinopril 10 MG DAILY 12/12 2230 DC 12/19 PO 0930 Midazolam HCl 2 MG .STK-MED ONE 12/20 1435 DC IM 12/20 1436 Morphine Sulfate 15 MG Q8 12/19 2200 AC 12/21 PO 0550 Nicotine 21 MG DAILY 12/13 1000 AC 12/21 TOP 0859 Non-Formulary 0 SEE ADMIN CRITERIA 12/20 1545 CAN Medication ANY Piperacillin Sod/ 3.375 GM Q6H 12/20 2030 AC 12/21 Tazobactam Sod IV 0909 Sodium Chloride 100 ML Piperacillin Sod/ 3.375 GM Q6H 12/20 2015 DC Tazobactam Sod IV Sodium Chloride 50 ML Piperacillin Sod/ 3.375 GM Q6 12/20 1800 DC Tazobactam Sod IV Sodium Chloride 50 ML Piperacillin Sod/ 4.5 GM Q6 12/18 1800 DC 12/20 Tazobactam Sod IV 1207 Sodium Chloride 100 ML Polyethylene Glycol 17 GM DAILY 12/13 1149 AC 12/18 PO 0821 Pravastatin Sodium 80 MG 1700 12/13 1700 AC 12/19 PO 1658 Senna/Docusate Sodium 2 TAB DAILY NEEDED PRN 12/13 1200 AC PO Vancomycin HCl 1,250 MG Q12H 12/18 0030 DC 12/20 Sodium Chloride 250 ML IV 0009 Zolpidem Tartrate 10 MG AT BEDTIME NEED.. 12/12 2115 AC 12/17 PO 2038 Last 24 Hrs of Lab/Jabier Results Last 24 Hrs of Labs/Mics: Laboratory Tests 12/21/16 0600: Anion Gap 12, Estimated GFR 45 L, BUN/Creatinine Ratio 16.3 12/21/16 0600: Prot Electrophoresis Pending, Total Protein (PEP) Pending, Albumin % (PEP) Pending, Iwyrn-4-Feskrevgo Pending, Fdbss-3-Sehcgluzz Pending, Brxt-9-Alxvmshq Pending, Wjkm-9-Qiqhqgaw Pending, Gamma Globulins Pending, Abnorm Protein Band 1 Pending, Abnorm Protein Band 2 Pending, Abnorm Protein Band 3 Pending, CBC w Diff NO MAN DIFF REQ, RBC 3.03 L, MCV 82.3, MCH 26.8 L, RDW 17.8 H, MPV 8.6, Gran % 80.5 H, Lymphocytes % 11.7 L, Monocytes % 6.9, Eosinophils % 0.7, Basophils % 0.2, Absolute Granulocytes 12.1 H, Absolute Lymphocytes 1.8, Absolute Monocytes 1.0 H, Absolute Eosinophils 0.1, Absolute Basophils 0, PUBS MCHC 32.6 L, LOREE Titer Pending, Anti-Nuclear Antibody Pending, Random Vancomycin 14.9 12/20/16 1830: Ur Random Creatinine Cancelled, Urine Total Volume Cancelled, Urine Creatinine Cancelled Assessment/Plan Assessment: Mr. Rudd is a 56 YO M current active smoker, with PMH of uncontrolled diabetes mellitus type 2, peripheral neuropathy, hypertension, hyperlipidemia, nonhealing ulcer of the left foot, was brought in by ambulance for fever up to 102.6, chills, painful and swollen left foot with drainage. Labs (WBC 21.8, ESR >130, CRP > 9) and imaging concerning for osteomyelitis, patient was taken to the OR by Dr. Sanchez on 12/12/16 for first ray resection. Subsequently transferred to post op. Osteomyelitis of left foot s/p resection * Vanco level 14.9. Vancomycin 1000mg . We will chack vancomycin level on 2016, if below 15, we will administer another 1000mg * WBC decreased to 15.0 * Antibiotic increased to broaden coverage. Continue on Zosyn 3.375g IV Q6 * Cultures: Citrobacter, Pseudomonas, Enterococcus, MRSA * Weight-bearing status heel touch * PP: Dilaudid 1 mg IV every 3 when necessary severe pain for breakthrough, morphine sulfate (MS Contin) 15 mg Q8, Tylenol for mild pain. Patient continues to complain of poorly controlled pain. * Appreciate ID and podiatry input Anemia * H&H stable * Monitor CBC in a.m. Peripheral vascular disease * Uncontrolled diabetic, actively smoking 2 packs per day. * Duplex left lower extremity shows increased velocities in profunda femoris artery, which is suggestive of stenosis of distal right superficial femoral artery. This critical finding was shared with vascular surgeon Dr. Prather, who mentioned that the patient should go angiogram, tolerated procedure well. * Uncontrolled Diabetes mellitus (on oral hypoglycemics) with neuropathy * hemiglobin A1c of 8.4 * Insulin NovoLog tidac, FS,157,190 * Continue medium dose sliding scale, we also addedd a bed time sliding scale. * We'll hold home glyburide and metformin * Continue Gabapentin 100 mg 4 times a day History of Hypertension * Hold Lisinopril 10 mg daily. Current BP: 92/50 History of Hyperlipidemia * Pravastatin 80 mg daily JOEY * Echocardiogram for assessment of ejection fraction, and to ensure adequate renal perfusion. * BUN/Cr this AM:26/1.6 * Patient did receive a one time dose of Lasix 40 mg, it was given early this am instead of 10.00 am. * 24 hour urine and Cr, pending. * SPEP/UPEP Pending. Nicotine dependence * Nicotine patch 21 mg daily * Smokes 2 packs daily Sleep * Continue Zolpidem 10 mg at bedtime as needed Diet: heart healthy DVT ppx: Heparin subcutaneous and alps FULL CODE Problem List: 1. Cellulitis of left foot 2. Diabetic foot ulcer 3. Osteomyelitis of left foot 4. Diabetes 5. Multiple open wounds of right lower extremity 6. Cellulitis of right lower leg Pain Ratin Pain Location: Left Foot Pain Goal: Remain pain free Pain Plan: Dilaudid and MS Contin Tomorrow's Labs & Rationales: BEP: Monitor Cr and BUN And CBC: Monitor H/H in the setting of an infection Consulting Request: Consulting Specialty: Infectious Disease Consulting Physician: Dr. Chi Reason for Consult: Osteomyelitis
--- NOTE | 2016-12-21 08:10 | NUR ---
LATE ENTRY PATIENT S/P ANGIOGRAM W/ STENT TO RIGHT GROIN. + CMS TO RIGHT LEG. BP 160/70, HR 104, TEMP 98.4, O2 SAT 98. PATIENT C/O PAIN 10 OUT OF 10. PATIENT DENIES HEADACHE OR ANY DISCOMFORT. NO DISTRESS NOTED. MD BRADFORD WAS MADE AWARE. PATIENT WAS MEDICATED FOR PAIN. VS RE-CHECKED AFTER PAIN MED ADMINISTRATION BP 140/70, HR 105, RESP 20, O2SAT 98%, TEMP 100.1. MD BRADFORD AWARE OF PATIENT'S VS UPDATE.
[2016-12-21 08:18] LABS: ABSOLUTE BASOPHIL COUNT 0 /CUMM (0.0-0.2); ABSOLUTE EOSINOPHIL COUNT 0.1 /CUMM (0.0-0.7); ABSOLUTE GRANULOCYTE CT 12.1 /CUMM (1.4-6.5); ABSOLUTE LYMPH COUNT 1.8 /CUMM (1.2-3.4); BASOPHIL % 0.2 % (0.0-2.0); EOSINOPHIL % 0.7 % (0-5); GRANULOCYTE % 80.5 % (42.2-75.2); HEMATOCRIT 24.9 % (42-52); MEAN CORPUSCULAR HGB 26.8 PG (27.0-31.0); MEAN CORPUSCULAR HGB CONC 32.6 G/DL (33.0-37.0); MEAN CORPUSCULAR VOLUME 82.3 FL (80.0-94.0); MEAN PLATELET VOLUME 8.6 FL (7.4-10.4); PLATELET COUNT 378 /CUMM (130-400); RBC DISTRIBUTION WIDTH 17.8 % (11.5-14.5); RED BLOOD CELL CT 3.03 /CUMM (4.70-6.10)
--- NOTE | 2016-12-21 08:30 | NUR ---
AT 0700 PATIENT BP 92/50, HR 76, TEMP 98.1, O2SAT 98%, RESP 20. PATIENT DENIES DIZINESS, LIGHTHEADEDNESS OR ANY DISCOMFORT. NO DISTRESS NOTED. PATIENT WAS ENCOURAGED TO DRINK FLUIDS. MD BRADFORD WAS MADE AWARE. THE INCOMING RN WAS MADE AWARE.
--- NOTE | 2016-12-21 08:59 | PN- Student ---
Subjective Subjective: Pt. is sitting in the chair and reports no distress. He reports that last night he had a 10/10 pain after the surgery and received a dilaudid 0.6mg IV PRN, which relieved his pain. Currently, he states his pain is a 4/10 localized to his left foot and back. He states he is happy with his current pain regimen now. Last bowel movement was today. ROS: Denies fevers, chills, diaphoresis, dysuria, oligiuria, abdominal pain, dizziness, shortness of breath, and chest pain. Objective Objective: Vital Signs Date Time Temp Pulse Resp B/P B/P Pulse O2 O2 Flow FiO2 Mean Ox Delivery Rate 12/21 0600 98.1 76 20 92/50 98 Room Air 12/21 0026 100.1 105 20 140/70 96 Room Air 12/20 2241 97.7 113 20 160/70 98 Room Air 12/20 1438 97.8 72 20 120/80 98 Room Air 12/20 1132 Room Air Room Air PE: General: calm, cooperative, sitting in the chair in no apparent distress. Neuro: Alert and Oriented x 3 Cardio: RRR, Normal S1 and S2, no mumurs, rubs or gallops. Pulm: clear breath sounds, no wheezes, rales, or rhonchi Abd: Normal bowel sounds throughout. Nondistended, nontender. No ascites present , not guarding present. LE: 3+ pitting edema bilaterally in a sitting position. ID consult 12/20/16 Impression: Low-grade fevers persist though white blood cell count continues to decrease now 3 days status post revisional partial first ray resection and placement of a wound VAC, with recent OR cultures (of the soft tissue of the left foot) growing Pseudomonas and Citrobacter in addition to MRSA and Enterococcus, and he is now on Zosyn in addition to Vancomycin, Day 6 of treatment for a polymicrobial gram- positive osteomyelitis of the left foot. His creatinine has increased further, possibly secondary to the Lasix, which has been discontinued, or other medications, including the Vancomycin, and, given the elevated Vancomycin level, this will need to be held. He has no evidence for urinary retention based on his bladder scan. He is scheduled for a return to the OR later today for further debridement/drainage and angiogram. Suggestion: 1. Await return to the OR later today 2. Renal evaluation if his creatinine does not improve 3. Discontinue Vancomycin 4. Vancomycin random level in the a.m., with redosing of Vancomycin if it is less than 15 5. Decrease Zosyn to 3.375 g IV every 6 hours Angiogram Radiographic findings: -Patent aorta, bilateral common iliac, external iliac, and internal iliac arteries with no significant disease. There is a high bifurcation of the iliac arteries. There is also high takeoff of bilateral hypogastric arteries. Iliac arteries are tortuous. -Patent left common femoral and profunda femoris with no significant disease -Patent SFA with greater than 50% stenosis in the mid section. There was also to short segment plaque distal to the stenosis. Resolution of the stenosis in the SFA after angioplasty and stenting with brisk flow -Patent popliteal artery. Anterior tibial arteries patent from it's origin and its in-line flow to the foot. Tibioperoneal trunk is patent with diffuse stenosis. Peroneal artery and posterior tibial arteries are patent and are in- line flow to the foot. Resolution of the stenosis and TP trunk after angioplasty Renal Consult 12/20/16 Assessment: JOEY. The differential diagnosis is long but I agree with Dr. Chi that the two main causes are excess diiuresis with lasix (decreased salt intake in hospital) and vancomycin. The later dose has been adjusted and part of today's trough is related to his JOEY. Infection can also case JOEY (AIN/infectious GN) but these are less likely. I agree with holding lasix and giving IVF as well as adjustment in vancomycin. CKD may be related to HTN and longstanding DM. Please check a formal 24 hr urine for protein/Cr, SPEP, UPEP and LOREE as part of this work up Results Results: Laboratory Tests 12/21/16 0600: Anion Gap 12, Estimated GFR 45 L, BUN/Creatinine Ratio 16.3 12/21/16 0600: Prot Electrophoresis Pending, Total Protein (PEP) Pending, Albumin % (PEP) Pending, Hossh-1-Wonnihzep Pending, Pikfo-0-Fzdambkzz Pending, Zpwr-0-Vmdmwvye Pending, Mohf-3-Xnicnaat Pending, Gamma Globulins Pending, Abnorm Protein Band 1 Pending, Abnorm Protein Band 2 Pending, Abnorm Protein Band 3 Pending, CBC w Diff NO MAN DIFF REQ, RBC 3.03 L, MCV 82.3, MCH 26.8 L, RDW 17.8 H, MPV 8.6, Gran % 80.5 H, Lymphocytes % 11.7 L, Monocytes % 6.9, Eosinophils % 0.7, Basophils % 0.2, Absolute Granulocytes 12.1 H, Absolute Lymphocytes 1.8, Absolute Monocytes 1.0 H, Absolute Eosinophils 0.1, Absolute Basophils 0, PUBS MCHC 32.6 L, LOREE Titer Pending, Anti-Nuclear Antibody Pending, Random Vancomycin 14.9 12/20/16 1830: Ur Random Creatinine Cancelled, Urine Total Volume Cancelled, Urine Creatinine Cancelled 12/20/16 0705: PT 15.0 H, INR 1.43 H, APTT 32 12/20/16 0525: Anion Gap 10, Estimated GFR 39 L, BUN/Creatinine Ratio 17.8, CBC w Diff NO MAN DIFF REQ, RBC 3.09 L, MCV 82.3, MCH 26.7 L, RDW 17.8 H, MPV 8.1, Gran % 77.3 H, Lymphocytes % 13.2 L, Monocytes % 6.9, Eosinophils % 2.3, Basophils % 0.3, Absolute Granulocytes 8.9 H, Absolute Lymphocytes 1.5, Absolute Monocytes 0.8 H, Absolute Eosinophils 0.3, Absolute Basophils 0, PUBS MCHC 32.4 L, Vancomycin Trough 32.0 H 12/19/16 1606: Anion Gap 11, Estimated GFR 39 L, BUN/Creatinine Ratio 20.6 12/19/16 0700: Anion Gap 12, Estimated GFR 42 L, BUN/Creatinine Ratio 21.8, CBC w Diff NO MAN DIFF REQ, RBC 3.04 L, MCV 81.8, MCH 27.1, RDW 17.6 H, MPV 8.4, Gran % 78.2 H, Lymphocytes % 12.6 L, Monocytes % 7.5, Eosinophils % 1.3, Basophils % 0.4, Absolute Granulocytes 11.4 H, Absolute Lymphocytes 1.8, Absolute Monocytes 1.1 H, Absolute Eosinophils 0.2, Absolute Basophils 0.1, PUBS MCHC 33.1 Assessment/Plan Assessment: Assessment: Assessment: Patient is a 56-year-old male with a past medical history of type II uncontrolled diabetes, hypertension, peripheral vascular disease, chronic back pain, and osteomyelitis who presented with acute diaphoresis, fever, granulocytosis, and delrium after debridement, which is suggestive of bacteremia and increasing creatinine function, which is suggestive of JOEY. Post debridement, the patient had a 10/10 pain that is localized on his left foot. He received dilaudid 0.6mg IV PRN, which alleviated his pain. Today, he is under no distress and report a 4/10 pain. We will continue with his current pain regimen. After reviewing the vital signs, the patient's heart rate and blood pressure was uncharacteristically increased last night. This was around the same time the patient was in significant pain, so I believe the increase in HR and BP was related to it. This morning, his BP was 92/50, which is also uncharacteristic. He was asymptomatic and has not received his lisinopril. We will need to reassess his BP and see if he is symptomatic. I think an ECHO and EKG will also help us understand his current cardiac function. Today, his WBC has increased from 11.4 to 15.0. He is asymptomatic, so the increase in WBC may be due to his debridement. Per ID consult, we will decrease the Zosyn to 3.375g IV q6h and ordered a random vancomycin level this AM which was 14.5. We held his vancomycin yesterday because the possibility of it causing worsening renal function. We have decided to continue vancomycin since the random vancomycin level was below 15. We will need to continue to monitor and trend his WBC and Cr. Mr. Rudd renal functions improved today. I highly suspect that this is due to the vancomycin levels. Zosyn increases the levels of vancomycin, which vancomycin has known nephrotoxic side effects. Since we held the vancomycin, the Cr function improved from 1.8 to 1.6. Therefore, I believe that his renal functions were due to the increase vancomycin levels. Finally, Mr. Rudd' potassium is mildly elevated today. In uncontrolled DM, the combination of insulin deficiency and hyperosmolality induces hyperkalemia. Increased plasma osmolality causes osmotic water and potassium movement from the cells into the extracellular fluid. Today his sugars was 190, so this may contribute to his hyperkalemia. Another cause of hyperkalemia would be due to renal injury. The patient has JOEY and it is most likely that he has an underlying CKD. When the renal system is working properly, the kidneys will excrete potassium. However, when a patient has acute or chronic kidney disease, the patient may develop hyperkalemia and this may come into play also. Problem List and plan: 1. Osteomyelitis: He was alert and oriented x3, cognition intact, judgement was fair. Seeing that the patient had symptoms after debridement, it is possible that this patient became bacteriemic from the surgery. Vancomyocin is not efficient in killing gram negative rods, so added Zosyn for gram negative coverage. Since debridement, he has improved with Vancomycin and Zosyn. * Per ID consult, decrease Zosyn to 3.375 g IV every 6 hours * Vancomycin random level in the a.m. was 14.5, we will continue vancomycin * CBC to monitor WBC, monitor temperature * PICC line in place * Monitor temperature 2. JOEY: DDx ATN vs interstitial nephritis. To be diagnosed with ATN, he must have a rise in Cr of 0.3mg/dL over 48 hours, Cr>1.5 normal baseline, or urine volume <0.5. His Cr increased from 1.4 to 1.7 within 48 hours, which fits the criteria for ATN. The causes of ATN include hypotension, sepsis, bleeding, and nephrotoxic drugs. Since this patient shows s/s of an infection and has been started on Zosyn and vancomycin, this could be the cause of ATN. Infections such as streptococcus, corynebacterium diptheriae, and enterococcus can cause acute interstitital nephritis. In addition, the patient was on tramadol, which can also cause AIN. Causes: drug nephrotoxicity vs fluid overload vs fluid depletion vs cardiorenal Recently, the patient's BUN and Cr has been increasing when starting Zosyn. One of the side effects of zosyn is increased BUN and Cr and potentiating the nephrotoxic effect of vancomycin, so this is the most likely reason for this increase in JOEY. Other reasons why his renal functions have been worsening is because of fluid overload. His lungs a clear, his LE edema did not worse, so I do not suspect fluid overload. A third cause of worsening renal function is fluid depletion. Poor perfusion to the kidneys can cause damage to the kidneys and cause worsening renal function. The reason for his worsening kidney function would be cardiorenal in origin. If the heart is not adequately pumping blood to the kidneys, then this can cause poor perfusion to the kidneys also. * BUN is 26. Cr decreased from 1.8 to 1.6 * I&O, he was in positive fluid balance yesterday. * PICC line in place per ID request * NPO, Debridement today * Nephrology consult believe that his JOEY is due to hypoperfusion and vancomycin * Hold Lisinopril and Continue IV Lasix * Order ECHO 3. Chronic back pain: the patient states that he has localized foot pain and chronic back pain. 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 Last night, he states he was in 10/10 pain in his foot. He states that the Dilaudid 1mg q4h did not help and received 0.5mg IV PRN. We will put the patient back to dilaudid 1mg q3h. * Hydromorphone 1mg q4h IV PRN for break through pain * Morphine sulfate 15mg PO BID for long-term pain relief * Warm compress for back pain * Bowel regimen if patient has been constipated for 3 days. 4. Uncontrolled DM: We will need to continue to monitor his diabetes * Novolin q6h SQ per sliding scale * Gabapentin 100mg PO q6h * Hold home DM meds 5. Peripheral Vascular disease: Elevated the legs when possible. 6. HTN * Lisinopril 10mg PO * Furosemide given yesterday. will see what Cr is today. 7. Hyperlipidemia * Continue pravastatin 8. Nicotine Dependence * Smokes 2 packs a day. Put him on a nicotine patch. * Smoking cessation education 9. Normocytic anemia: the patient's Hgb decreased from 8.6 to 8.2 today. His admitting ferritin is high, which would be suggestive of CKD as the cause of the normocytic anemia. Since he has JOEY, this may be worsening his anemia. He is asymptomatic, so we will monitor his CBC tomorrow. If his Hgb continues to decrease AND he is symptomatic, then we may have to consider blood transfusion. 10. Mild Hyperkalemia: * BEP * possible insulin or furosemide
[2016-12-21 14:05] VITALS: BP 125/80
[2016-12-21 22:06] VITALS: BP 132/70
[2016-12-22 06:37] VITALS: BP 106/60
--- NOTE | 2016-12-22 08:22 | PN- Housestaff ---
MARIAH PENDLETON,NELLY 12/22/16 0822: Subjective Follow-up For: Osteomyelitis JOEY Subjective: Patient seen and examined at bedside. No events reported overnight. Resting comfortably in bed with no complaints. Remains afebrile and HDS. Endorses pain at 5 out of 10 in his LLE, well controlled with the curren regimen. Denies any fever, chills, chest discomfort, palpitations, dyspnea, swelling, abdominal pain , nausea, vomiting, headache. Review of Systems Constitutional: Reports: see HPI. Objective Last 24 Hrs of Vital Signs/I&O Vital Signs Date Time Temp Pulse Resp B/P B/P Pulse O2 O2 Flow FiO2 Mean Ox Delivery Rate 12/22 0637 99.0 81 20 106/60 95 Room Air 12/21 2206 98.4 79 20 132/70 100 12/21 1405 98.2 80 20 125/80 96 Intake & Output 12/22 1600 12/22 0800 12/22 0000 Intake Total 150 250 Output Total 700 400 Balance -550 -150 Intake, IV 150 250 Output, Urine 700 400 Physical Exam General Appearance: Alert, Cooperative, No Acute Distress Other Physical Findings: Lymphatic: Axillary nl Cardiovascular: Regular Rate, Normal S1, Normal S2 Lungs: Clear to Auscultation Abdomen: Normal Bowel Sounds, Soft, No Tenderness, Distended Neurological: Normal Speech Extremities: No Clubbing, Bilaterral. Venous Stasis Current Medications: Current Medications Sig/Zehra Start time Last Medication Dose Route Stop Time Status Admin Acetaminophen 650 MG Q6P PRN 12/12 2115 AC 12/18 PO 0627 Clopidogrel Bisulfate 75 MG DAILY 12/20 1730 AC 12/21 PO 0859 Docusate Sodium 100 MG DAILY NEEDED PRN 12/13 1200 AC PO Furosemide 40 MG DAILY 12/21 1000 DC 12/21 PO 0859 Gabapentin 100 MG 4 TIMES/DAY 12/13 1000 AC 12/21 PO 2052 Heparin Sodium 5,000 UNIT Q8 12/12 2200 AC 12/22 (Porcine) SC 0541 Hydromorphone HCl 0.6 MG ONCE PRN 12/21 0045 AC 12/21 IV 1545 Hydromorphone HCl 1 MG Q3P PRN 12/20 1545 AC 12/22 IV 0710 Insulin Aspart 0 TIDAC 12/21 0800 AC 12/21 SC 1901 Insulin Aspart 0 AT BEDTIME 12/19 2200 AC 12/21 SC 1725 Morphine Sulfate 15 MG Q8 12/19 2200 AC 12/22 PO 0540 Nicotine 21 MG DAILY 12/13 1000 AC 12/21 TOP 0859 Piperacillin Sod/ 3.375 GM Q6H 12/20 2030 AC 12/22 Tazobactam Sod IV 0216 Sodium Chloride 100 ML Polyethylene Glycol 17 GM DAILY 12/13 1149 AC 12/18 PO 0821 Pravastatin Sodium 80 MG 1700 12/13 1700 AC 12/21 PO 1544 Senna/Docusate Sodium 2 TAB DAILY NEEDED PRN 12/13 1200 AC PO Vancomycin HCl 1,000 MG ONCE ONE 12/21 1400 DC 12/21 Sodium Chloride 250 ML IV 12/21 1459 1524 Zolpidem Tartrate 10 MG AT BEDTIME NEED.. 12/12 2115 AC 12/17 PO 2038 Last 24 Hrs of Lab/Jabier Results Last 24 Hrs of Labs/Mics: Laboratory Tests 12/22/16 0550: Sodium Pending, Potassium Pending, Chloride Pending, Carbon Dioxide Pending, Anion Gap Pending, BUN Pending, Creatinine Pending, BUN/Creatinine Ratio Pending , CBC w Diff Pending, WBC Pending, RBC Pending, Hgb Pending, Hct Pending, MCV Pending, MCH Pending, RDW Pending, Plt Count Pending, MPV Pending, PUBS MCHC Pending, Random Vancomycin Pending Assessment/Plan Assessment: Mr. Rudd is a 56 YO M current active smoker, with PMH of uncontrolled diabetes mellitus type 2, peripheral neuropathy, hypertension, hyperlipidemia, nonhealing ulcer of the left foot, was brought in by ambulance for fever up to 102.6, chills, painful and swollen left foot with drainage. Labs (WBC 21.8, ESR >130, CRP > 9) and imaging concerning for osteomyelitis, patient was taken to the OR by Dr. Sanchez on 12/12/16 for first ray resection. Subsequently transferred to post op. Osteomyelitis of left foot s/p resection Cultures: Citrobacter, Pseudomonas, Enterococcus, MRSA * Check vancomycin level. If below 15, give another 1g of Vanco * Continue on Zosyn 3.375g IV Q6 * Monitor WBC daily * Weight-bearing status heel touch * Adequate pain control - MS Contin 15 mg Q8H with Dilaudid 1 mg IV Q3P for breakthrough * Appreciate ID and podiatry input Anemia * Monitor CBC daily, trend H/H Peripheral vascular disease * Uncontrolled diabetic, actively smoking 2 packs per day. * Duplex left lower extremity shows increased velocities in profunda femoris artery, which is suggestive of stenosis of distal right superficial femoral artery. This critical finding was shared with vascular surgeon Dr. Prather, who mentioned that the patient should go angiogram, tolerated procedure well. Uncontrolled Diabetes mellitus (on oral hypoglycemics) with neuropathy Hemiglobin A1c of 8.4 * Novolog SSI with accuchecks * Continue Gabapentin 100 mg 4 times a day * Holding home glyburide and metformin History of Hypertension * Holding Lisinopril 10 mg daily. Current BP: 92/50 History of Hyperlipidemia * Pravastatin 80 mg daily JOEY Echocardiogram for assessment of ejection fraction, and to ensure adequate renal perfusion. * Check renal fx daily * 24 hour urine and Cr, pending. * Follow SPEP/UPEP Nicotine dependence * Nicotine patch 21 mg daily * Smokes 2 packs daily Sleep * Continue Zolpidem 10 mg at bedtime as needed Diet: heart healthy DVT ppx: Heparin subcutaneous and alps FULL CODE Problem List: 1. Diabetes 2. Osteomyelitis of left foot 3. Diabetic foot ulcer 4. Cellulitis of left foot Pain Ratin Pain Location: LLE Pain Goal: Pain 4 or less Pain Plan: Dilaudid and MS Contin Tomorrow's Labs & Rationales: BEP: Monitor Cr and BUN CBC: Monitor H/H in the setting of an infection Consulting Request: Consulting Specialty: Infectious Disease Consulting Physician: Dr. Chi Reason for Consult: Osteomyelitis [facility] 12/22/16 1106: Attending MD Review Statement Attending Statement Attending MD Statement: examined this patient, discuss w/resident/PA/ELECTRIC FRYING PAN REPAIRER, agreed w/resident/PA/ELECTRIC FRYING PAN REPAIRER, reviewed EMR data (avail) Attending Assessment/Plan: 56M PMH HTN, HLD, T2DM, diabetic peripheral polyneuropathy admitted with sepsis secondary to acute osteomyelitis of the left foot s/p incision and drainage on by podiatry, with wound cultures growing mRSA and polymicrobial organisms. Underwent surgical revision of foot on 12/17 and angiogram on 12/20 with s/p angioplasty/stent of left SFA, angioplasty of left tibioperoneal trunk. Patient reports his pain is much improved after changing his Dilaudid back from q4h to q3h. He is awake and alert this morning and has no complaints, saying he feels fantastic. He has mild bilateral LE edema. Lungs are clear. Creatinine improved today. 1. Sepsis secondary to mRSA (resolved) 2. Acute osteomyelitis of left foot 3. Left SFA stenosis 4. Peripheral arterial disease 5. T2DM with diabetic polyneuropathy Plan - Continue on general medicine - Continue Vancomycin and Zosyn - Monitor renal function - Follow cultures - Follow ID, podiatry, vascular, nephrology recommendations - Monitor fingerstick levels - Continue home medications - DVT PPx - Will start discharge planning to eventual STR with superintendent [employer] antibiotics
--- NOTE | 2016-12-22 09:28 | PN- Infect Dx ---
Subjective Subjective: Afebrile. He reports some discomfort in the left foot. Objective Last 24 Hrs of Vital Signs/I&O Vital Signs Date Time Temp Pulse Resp B/P B/P Pulse O2 O2 Flow FiO2 Mean Ox Delivery Rate 12/22 0637 99.0 81 20 106/60 95 Room Air 12/21 2206 98.4 79 20 132/70 100 12/21 1405 98.2 80 20 125/80 96 Intake & Output 12/22 1600 12/22 0800 12/22 0000 Intake Total 150 250 Output Total 700 400 Balance -550 -150 Intake, IV 150 250 Output, Urine 700 400 Physical Exam Other Physical Findings: He appears comfortable in no acute distress Lungs are clear Extremities left foot dressing intact; PICC in the right upper extremity with no inflammation at the site Results Last 24 Hours of Lab Results: Laboratory Tests 12/21 12/21 12/20 0600 0600 1830 Chemistry Sodium (137 - 145 mmol/L) 135 L Potassium (3.5 - 5.1 mmol/L) 5.3 H Chloride (98 - 107 mmol/L) 100 Carbon Dioxide (22 - 30 mmol/L) 23 Anion Gap (5 - 16) 12 BUN (9 - 20 mg/dL) 26 H Creatinine (0.7 - 1.2 mg/dL) 1.6 H Estimated GFR (>60 ml/min) 45 L BUN/Creatinine Ratio (7 - 25 %) 16.3 Prot Electrophoresis Pending Total Protein (PEP) Pending Albumin % (PEP) Pending [id number] Pending [id number] Pending Exqb-[id number] Pending Crwk-5-[id number] Pending Gamma Globulins Pending Abnorm Protein Band 1 Pending Abnorm Protein Band 2 Pending Abnorm Protein Band 3 Pending Hematology CBC w Diff NO MAN DIFF REQ WBC (4.8 - 10.8 /CUMM) 15.0 H RBC (4.70 - 6.10 /CUMM) 3.03 L Hgb (14.0 - 18.0 G/DL) 8.1 L Hct (42 - 52 %) 24.9 L MCV (80.0 - 94.0 FL) 82.3 MCH (27.0 - 31.0 PG) 26.8 L RDW (11.5 - 14.5 %) 17.8 H Plt Count (130 - 400 /CUMM) 378 MPV (7.4 - 10.4 FL) 8.6 Gran % (42.2 - 75.2 %) 80.5 H Lymphocytes % (20.5 - 51.1 %) 11.7 L Monocytes % (1.7 - 9.3 %) 6.9 Eosinophils % (0 - 5 %) 0.7 Basophils % (0.0 - 2.0 %) 0.2 Absolute Granulocytes (1.4 - 6.5 /CUMM) 12.1 H Absolute Lymphocytes (1.2 - 3.4 /CUMM) 1.8 Absolute Monocytes (0.10 - 0.60 /CUMM) 1.0 H Absolute Eosinophils (0.0 - 0.7 /CUMM) 0.1 Absolute Basophils (0.0 - 0.2 /CUMM) 0 PUBS MCHC (33.0 - 37.0 G/DL) 32.6 L Immunology LOREE Titer Pending Anti-Nuclear Antibody Pending Toxicology Random Vancomycin (ug/ml) 14.9 Urines Ur Random Creatinine Cancelled Urine Total Volume Cancelled Urine Creatinine Cancelled 12/20 12/20 12/19 0705 0525 1606 Chemistry Sodium (137 - 145 mmol/L) 136 L 136 L Potassium (3.5 - 5.1 mmol/L) 4.9 5.0 Chloride (98 - 107 mmol/L) 101 99 Carbon Dioxide (22 - 30 mmol/L) 25 25 Anion Gap (5 - 16) 10 11 BUN (9 - 20 mg/dL) 32 H 37 H Creatinine (0.7 - 1.2 mg/dL) 1.8 H 1.8 H Estimated GFR (>60 ml/min) 39 L 39 L BUN/Creatinine Ratio (7 - 25 %) 17.8 20.6 Coagulation PT (9.4 - 12.5 SEC) 15.0 H INR (0.90 - 1.17) 1.43 H APTT (25 - 37 SEC) 32 Hematology CBC w Diff NO MAN DIFF REQ WBC (4.8 - 10.8 /CUMM) 11.4 H RBC (4.70 - 6.10 /CUMM) 3.09 L Hgb (14.0 - 18.0 G/DL) 8.3 L Hct (42 - 52 %) 25.4 L MCV (80.0 - 94.0 FL) 82.3 MCH (27.0 - 31.0 PG) 26.7 L RDW (11.5 - 14.5 %) 17.8 H Plt Count (130 - 400 /CUMM) 321 MPV (7.4 - 10.4 FL) 8.1 Gran % (42.2 - 75.2 %) 77.3 H Lymphocytes % (20.5 - 51.1 %) 13.2 L Monocytes % (1.7 - 9.3 %) 6.9 Eosinophils % (0 - 5 %) 2.3 Basophils % (0.0 - 2.0 %) 0.3 Absolute Granulocytes (1.4 - 6.5 /CUMM) 8.9 H Absolute Lymphocytes (1.2 - 3.4 /CUMM) 1.5 Absolute Monocytes (0.10 - 0.60 /CUMM) 0.8 H Absolute Eosinophils (0.0 - 0.7 /CUMM) 0.3 Absolute Basophils (0.0 - 0.2 /CUMM) 0 PUBS MCHC (33.0 - 37.0 G/DL) 32.4 L Toxicology Vancomycin Trough (10.0 - 20.0 ug/mL) 32.0 H Last 24 Hours of Jabier Results: No recent cultures Assessment/Plan Impression: Stable status post left leg angiogram with angioplasty and stenting of the left SFA and angioplasty of the left tibioperoneal trunk as well as further debridement of the left foot 2 days ago for polymicrobial osteomyelitis, status post left first ray resection, with MRSA, beta-hemolytic strep and Enterococcus isolated from the initial OR cultures of the left great toe and with Pseudomonas and Citrobacter isolated, in addition to Enterococcus and MRSA, from the soft tissue cultures from his second surgery 5 days ago. He has been afebrile since his recent surgery, but his white blood cell count increased, possibly secondary to his recent surgery. He remains on Zosyn, with the dose decreased because of his renal insufficiency, which appears to have improved, and Vancomycin, which will need to be dosed based on random levels until his creatinine stabilizes. The etiology of his renal insufficiency may be multifactorial but, given its apparent rapid recovery, feel that Vancomycin can be continued. Suggestion: 1. Repeat chemistries and Vancomycin random level today 2. Re-dose with Vancomycin 1 g IV if the level is less than 15 and recheck a random level in the a.m. 3. Would check an ESR 4. Continue Zosyn
[2016-12-22 11:13] LABS: ABSOLUTE BASOPHIL COUNT 0.1 /CUMM (0.0-0.2); ABSOLUTE EOSINOPHIL COUNT 0.4 /CUMM (0.0-0.7); ABSOLUTE GRANULOCYTE CT 8.6 /CUMM (1.4-6.5); ABSOLUTE LYMPH COUNT 1.6 /CUMM (1.2-3.4); ABSOLUTE MONOCYTE COUNT 0.5 /CUMM (0.10-0.60); BASOPHIL % 0.5 % (0.0-2.0); EOSINOPHIL % 3.2 % (0-5); GRANULOCYTE % 77.3 % (42.2-75.2); HEMATOCRIT 24.3 % (42-52); MEAN CORPUSCULAR HGB 26.4 PG (27.0-31.0); MEAN CORPUSCULAR HGB CONC 32.1 G/DL (33.0-37.0); MEAN CORPUSCULAR VOLUME 82.2 FL (80.0-94.0); MEAN PLATELET VOLUME 8.1 FL (7.4-10.4); PLATELET COUNT 338 /CUMM (130-400); RBC DISTRIBUTION WIDTH 17.7 % (11.5-14.5); RED BLOOD CELL CT 2.95 /CUMM (4.70-6.10); WHITE BLOOD CELL COUNT 11.1 /CUMM (4.8-10.8)
--- NOTE | 2016-12-22 14:20 | NUR ---
PT'S CAM PICC LINE HAS POOR BLOOD RETURN, UBABLE TO DRAW SED RATE, DR.KIIN LEMUS NOTIFIED, NO ORDERS FOR ALTEPLASE, HGB/HCT LOW, PT POST OP.CONTINUE TO MONITOR
[2016-12-22 14:40] VITALS: BP 114/64
[2016-12-22 22:50] VITALS: BP 120/60
[2016-12-23 06:41] VITALS: BP 128/64
--- NOTE | 2016-12-23 06:47 | PN- Housestaff ---
CORINNE PENDLETON,[facility] 12/23/16 0646: Subjective Follow-up For: Osteomyelitis Subjective: was seen and examined this morning. Resting comfortably in bed. Patient states he feels better. Denies any issues overnight. States that he feels that his pain is adequately controlled. Currently has no additional complaints. Denies any fever, chills, nausea, vomiting. Endorses increased movement of left lower extremity. Tolerating by mouth intake well. Review of Systems Constitutional: Reports: see HPI. Objective Last 24 Hrs of Vital Signs/I&O Vital Signs Date Time Temp Pulse Resp B/P B/P Pulse O2 O2 Flow FiO2 Mean Ox Delivery Rate 12/23 0641 99.4 76 18 128/64 96 Room Air 12/22 2250 99.5 82 20 120/60 97 Room Air 12/22 1440 98.9 85 20 114/64 95 Room Air Intake & Output 12/23 0800 12/23 0000 12/22 1600 Intake Total 150 250 800 Output Total 1200 1200 800 Balance -1050 -950 0 Intake, IV 150 250 200 Intake, Oral 600 Output, Urine 1200 1200 800 Physical Exam General Appearance: Alert Skin: No Rashes HEENT: Mucous Membr. moist/pink Cardiovascular: Regular Rate, Normal S1, Normal S2 Lungs: Clear to Auscultation Abdomen: Normal Bowel Sounds, Soft, No Tenderness Neurological: Normal Speech, Strength at 5/5 X4 Ext Extremities: Left lower extremity wrapped in bandage. , PICC line in place. Right upper extremity. Clean, dry and intact. Vascular: Normal Pulses Current Medications: Current Medications Sig/Ezhra Start time Last Medication Dose Route Stop Time Status Admin Acetaminophen 650 MG Q6P PRN 12/12 2115 AC 12/18 PO 0627 Clopidogrel Bisulfate 75 MG DAILY 12/20 1730 AC 12/23 PO 0808 Docusate Sodium 100 MG DAILY NEEDED PRN 12/13 1200 AC PO Gabapentin 100 MG 4 TIMES/DAY 12/13 1000 AC 12/23 PO 0807 Heparin Sodium 5,000 UNIT Q8 12/12 2200 AC 12/23 (Porcine) SC 0552 Hydromorphone HCl 0.6 MG ONCE PRN 12/21 0045 AC 12/21 IV 1545 Hydromorphone HCl 1 MG Q3P PRN 12/20 1545 AC 12/23 IV 0638 Insulin Aspart 0 TIDAC 12/21 0800 AC 12/23 SD 0808 Insulin Aspart 0 AT BEDTIME 12/19 2200 AC 12/22 SC 2139 Morphine Sulfate 15 MG Q8 12/19 2200 AC 12/23 PO 0552 Nicotine 21 MG DAILY 12/13 1000 AC 12/23 TOP 0807 Piperacillin Sod/ 3.375 GM Q6H 12/20 2030 AC 12/23 Tazobactam Sod IV 0807 Sodium Chloride 100 ML Polyethylene Glycol 17 GM DAILY 12/13 1149 AC 12/23 PO 0807 Pravastatin Sodium 80 MG 1700 12/13 1700 AC 12/22 PO 1708 Senna/Docusate Sodium 2 TAB DAILY NEEDED PRN 12/13 1200 AC PO Zolpidem Tartrate 10 MG AT BEDTIME NEED.. 12/12 2114 AC 12/17 PO 2037 Last 24 Hrs of Lab/Jabier Results Last 24 Hrs of Labs/Mics: Laboratory Tests 12/23/16 0600: Sodium Pending, Potassium Pending, Chloride Pending, Carbon Dioxide Pending, Anion Gap Pending, BUN Pending, Creatinine Pending, BUN/Creatinine Ratio Pending , CBC w Diff Pending, WBC Pending, RBC Pending, Hgb Pending, Hct Pending, MCV Pending, MCH Pending, RDW Pending, Plt Count Pending, MPV Pending, PUBS MCHC Pending, ESR Westergren Pending, Random Vancomycin Pending 12/22/16 1204: ESR Westergren Cancelled 12/22/16 1015: Anion Gap 10, Estimated GFR 45 L, BUN/Creatinine Ratio 18.8, RBC 2.95 L, MCV 82.2, MCH 26.4 L, RDW 17.7 H, MPV 8.1, Gran % 77.3 H, Lymphocytes % 14.5 L, Monocytes % 4.5, Eosinophils % 3.2, Basophils % 0.5, Absolute Granulocytes 8.6 H, Absolute Lymphocytes 1.6, Absolute Monocytes 0.5, Absolute Eosinophils 0.4, Absolute Basophils 0.1, PUBS MCHC 32.1 L, ESR Westergren > 130 H, Random Vancomycin 16.8 Assessment/Plan Assessment: Mr. Rudd is a 56 YO M current active smoker, with PMH of uncontrolled diabetes mellitus type 2, peripheral neuropathy, hypertension, hyperlipidemia, nonhealing ulcer of the left foot, was brought in by ambulance for fever up to 102.6, chills, painful and swollen left foot with drainage. Labs (WBC 21.8, ESR >130, CRP > 9) and imaging concerning for osteomyelitis, patient was taken to the OR by Dr. Sanchez on 12/12/16 for first ray resection. Subsequently transferred to post op. Osteomyelitis of left foot s/p resection Cultures: Citrobacter, Pseudomonas, Enterococcus, MRSA * Check vancomycin level. If below 15, give another 1g of Vanco. Patient was dosed 1000mg today after vancomycin level was 8.0 * Continue on Zosyn 3.375g IV Q6 * Monitor WBC daily * Weight-bearing status heel touch * Adequate pain control - MS Contin 15 mg Q8H with Dilaudid 1 mg IV Q3P for breakthrough * Appreciate ID and podiatry input . * Patient scheduled to go to the OR tomorrow for wound VAC placement. Will make nothing by mouth overnight. Anemia * Monitor CBC daily, trend H/H. * Patient's H&H was 7.2 and 22.3. He was transfused 1 unit of PRBC. We will check CBC in a.m. to ensure adequate response. In the meantime we will keep a close eye becomes symptomatic, and if need be can transfuse another unit. Peripheral vascular disease * Uncontrolled diabetic, actively smoking 2 packs per day. * Duplex left lower extremity shows increased velocities in profunda femoris artery, which is suggestive of stenosis of distal right superficial femoral artery. This critical finding was shared with vascular surgeon Dr. Prather, who mentioned that the patient should go angiogram, tolerated procedure well. Uncontrolled Diabetes mellitus (on oral hypoglycemics) with neuropathy Hemiglobin A1c of 8.4 * She has blood sugar continued to be elevated in the range of 38T, 368, 393, 253, * Started the patient on Levemir 10 units twice a day. * Novolog SSI with accuchecks, continue medium dose sliding scale. * Continue Gabapentin 100 mg 4 times a day * Holding home glyburide and metformin History of Hypertension * Holding Lisinopril 10 mg daily. Current BP: 118/64 History of Hyperlipidemia * Pravastatin 80 mg daily JOEY Echocardiogram for assessment of ejection fraction, and to ensure adequate renal perfusion. * Check renal fx daily: BUN: 26 and Cr 1.5 * 24 hour urine Protein: 1248 and Cr:1.2 * Follow SPEP/UPEP Nicotine dependence * Nicotine patch 21 mg daily * Smokes 2 packs daily Sleep * Continue Zolpidem 10 mg at bedtime as needed Diet: heart healthy DVT ppx: Heparin subcutaneous and alps FULL CODE Problem List: 1. Cellulitis of left foot 2. Osteomyelitis of left foot 3. Diabetes 4. Multiple open wounds of right lower extremity Pain Ratin Pain Location: Left Lower extemity Pain Goal: Remain pain free Pain Plan: dilaudid and MS contin Tomorrow's Labs & Rationales: CBC: Monitor H/H in the setting of anemia Vancomycin Level: Monitor whether dose is needed for Vancomycin. BEp: Monitor Renal Functions. Consulting Request: Consulting Specialty: Infectious Disease Consulting Physician: Dr. Chi Reason for Consult: Osteomyelitis OMAR SWEET MD 12/23/16 1353: Attending MD Review Statement Attending Statement Attending MD Statement: examined this patient, discuss w/resident/PA/GRADE TAMPER, agreed w/resident/PA/GRADE TAMPER, reviewed EMR data (avail) Attending Assessment/Plan: 56M PMH HTN, HLD, T2DM, diabetic peripheral polyneuropathy admitted with sepsis secondary to acute osteomyelitis of the left foot s/p incision and drainage on by podiatry, with wound cultures growing mRSA and polymicrobial organisms. Underwent surgical revision of foot on 12/17 and angiogram on 12/20 with s/p angioplasty/stent of left SFA, angioplasty of left tibioperoneal trunk. Patient reports his pain is much improved after changing his Dilaudid back from q4h to q3h. He is awake and alert this morning and has no complaints, saying he feels fantastic. He has mild bilateral LE edema. Lungs are clear. Creatinine improved today. 1. Sepsis secondary to mRSA (resolved) 2. Acute osteomyelitis of left foot 3. Left SFA stenosis 4. Peripheral arterial disease 5. T2DM with diabetic polyneuropathy Plan - Continue on general medicine - Continue Vancomycin and Zosyn - Monitor renal function - Follow cultures - Follow ID, podiatry, vascular, nephrology recommendations - Monitor fingerstick levels - Continue home medications - DVT PPx - Scheduled to go to OR for wound vac replacement and revision tomorrow
[2016-12-23 08:35] LABS: ABSOLUTE BASOPHIL COUNT 0.1 /CUMM (0.0-0.2); ABSOLUTE EOSINOPHIL COUNT 0.3 /CUMM (0.0-0.7); ABSOLUTE GRANULOCYTE CT 8.1 /CUMM (1.4-6.5); EOSINOPHIL % 2.8 % (0-5); MEAN PLATELET VOLUME 7.9 FL (7.4-10.4)
[2016-12-23 09:01] LABS: ABSOLUTE MONOCYTE COUNT 0.6 /CUMM (0.10-0.60); BASOPHIL % 0.5 % (0.0-2.0); GRANULOCYTE % 73.1 % (42.2-75.2); HEMATOCRIT 22.3 % (42-52); MEAN CORPUSCULAR HGB 26.7 PG (27.0-31.0); MEAN CORPUSCULAR HGB CONC 32.5 G/DL (33.0-37.0); MEAN CORPUSCULAR VOLUME 82.1 FL (80.0-94.0); PLATELET COUNT 314 /CUMM (130-400); RBC DISTRIBUTION WIDTH 17.9 % (11.5-14.5); RED BLOOD CELL CT 2.72 /CUMM (4.70-6.10)
--- NOTE | 2016-12-23 11:31 | RADIOLOGY REPORT ---
EXAMINATION: XR FEMUR, LEFT CLINICAL INFORMATION: Left angiogram. COMPARISON: None TECHNIQUE: Multiple digital subtraction angiogram and fluoroscopic spot images were obtained during angiography performed in the operating room. Fluoroscopy time: 2 minutes 45 seconds. FINDINGS/IMPRESSION: Multiple DSA images were obtained during angiography performed in the operating room. Please refer to full operative report for procedure details.
[2016-12-23 12:31] VITALS: BP 118/64
--- NOTE | 2016-12-23 14:40 | PN- Infect Dx ---
Subjective Subjective: Afebrile. He notes minimal discomfort in the left foot Objective Last 24 Hrs of Vital Signs/I&O Vital Signs Date Time Temp Pulse Resp B/P B/P Pulse O2 O2 Flow FiO2 Mean Ox Delivery Rate 12/23 1231 97.2 71 18 118/64 97 Room Air 12/23 0938 Room Air Room Air 12/23 0925 Room Air Room Air 12/23 0920 Room Air Room Air 12/23 0641 99.4 76 18 128/64 96 Room Air 12/22 2250 99.5 82 20 120/60 97 Room Air 12/22 1440 98.9 85 20 114/64 95 Room Air Intake & Output 12/23 1600 /12 0800 06/ 0000 Intake Total 600 150 250 Output Total 650 1200 1200 Balance -50 -1050 -950 Intake, Blood 500 Product Intake, IV 100 150 250 Output, Urine 650 1200 1200 Physical Exam Other Physical Findings: He appears comfortable in no acute distress Extremities left foot dressing intact; PICC in the right upper extremity with no inflammation at the site Results Last 24 Hours of Lab Results: Laboratory Tests 12/23 0600 Chemistry Sodium (137 - 145 mmol/L) 134 L Potassium (3.5 - 5.1 mmol/L) 4.8 Chloride (98 - 107 mmol/L) 100 Carbon Dioxide (22 - 30 mmol/L) 24 Anion Gap (5 - 16) 10 BUN (9 - 20 mg/dL) 26 H Creatinine (0.7 - 1.2 mg/dL) 1.5 H Estimated GFR (>60 ml/min) 48 L BUN/Creatinine Ratio (7 - 25 %) 17.3 Hematology CBC w Diff NO MAN DIFF REQ WBC (4.8 - 10.8 /CUMM) 11.0 H RBC (4.70 - 6.10 /CUMM) 2.72 L Hgb (14.0 - 18.0 G/DL) 7.2 *L Hct (42 - 52 %) 22.3 L MCV (80.0 - 94.0 FL) 82.1 MCH (27.0 - 31.0 PG) 26.7 L RDW (11.5 - 14.5 %) 17.9 H Plt Count (130 - 400 /CUMM) 314 MPV (7.4 - 10.4 FL) 7.9 Gran % (42.2 - 75.2 %) 73.1 Lymphocytes % (20.5 - 51.1 %) 18.1 L Monocytes % (1.7 - 9.3 %) 5.5 Eosinophils % (0 - 5 %) 2.8 Basophils % (0.0 - 2.0 %) 0.5 Absolute Granulocytes (1.4 - 6.5 /CUMM) 8.1 H Absolute Lymphocytes (1.2 - 3.4 /CUMM) 2.0 Absolute Monocytes (0.10 - 0.60 /CUMM) 0.6 Absolute Eosinophils (0.0 - 0.7 /CUMM) 0.3 Absolute Basophils (0.0 - 0.2 /CUMM) 0.1 PUBS MCHC (33.0 - 37.0 G/DL) 32.5 L ESR Westergren (0 - 10 MM) > 130 H Toxicology Random Vancomycin (ug/ml) 8.0 Last 24 Hours of Jabier Results: No recent cultures Assessment/Plan Impression: Stable status post left leg angiogram with angioplasty and stenting of the left SFA and angioplasty of the left tibioperoneal trunk as well as further debridement of the left foot 3 days ago for polymicrobial osteomyelitis, status post left first ray resection, with MRSA, beta-hemolytic strep and Enterococcus isolated from the initial OR cultures of the left great toe and with Pseudomonas and Citrobacter isolated, in addition to Enterococcus and MRSA, from the soft tissue cultures from his second surgery 6 days ago. He remains afebrile and white blood cell count is only minimally elevated on Zosyn and Vancomycin, which will continue to require dosed based on random levels until his creatinine, which is improving, stabilizes. He is apparently scheduled for further surgery in the a.m. with placement of a wound VAC. Suggestion: 1. Await return to the OR in the a.m. 2. Vancomycin random level in the a.m. and redose with 1 g IV Vancomycin if less than 15 3. Continue Zosyn
[2016-12-23 15:31] VITALS: BP 134/70
[2016-12-23 23:04] VITALS: BP 152/80
[2016-12-24 06:16] VITALS: BP 110/62
--- NOTE | 2016-12-24 06:27 | PN- Housestaff ---
CORINNE PENDLETON,[facility] 12/24/16 0626: Subjective Follow-up For: Osteomylitis Subjective: Mr Rudd was seen and examined this morning. Is resting comfortably on the chair beside his bed. Appears very somnolent and although is alert and oriented had a tough time maintaining concentration over the course of our interaction. Patient continues to endorse pain in his left left lower extremity. Pain is rated 8 out of 10 described as sharp in severity. Patient states that pain responds well to pain medications and continues to request for more. Patient denies any fever, chills, nausea or vomiting. Review of Systems Constitutional: Reports: see HPI. Objective Last 24 Hrs of Vital Signs/I&O Vital Signs Date Time Temp Pulse Resp B/P B/P Pulse O2 O2 Flow FiO2 Mean Ox Delivery Rate 12/24 0616 98.5 80 18 110/62 97 Room Air 12/23 2304 99.1 77 19 152/80 96 Room Air 12/23 1531 97.2 78 18 134/70 97 Room Air 12/23 1231 97.2 71 18 118/64 97 Room Air 12/23 0938 Room Air Room Air 12/23 0925 Room Air Room Air 12/23 0920 Room Air Room Air 12/23 0641 99.4 76 18 128/64 96 Room Air Intake & Output 12/24 0800 12/24 0000 12/23 1600 Intake Total 450 600 Output Total 1360 1350 Balance -910 -750 Intake, Blood 500 Product Intake, IV 100 Intake, Oral 450 Output, Urine 1360 1350 Physical Exam General Appearance: Alert, Oriented X3 Skin: No Rashes Cardiovascular: Regular Rate, Normal S1, Normal S2 Lungs: Clear to Auscultation Abdomen: Normal Bowel Sounds, Soft, No Tenderness Neurological: Normal Speech Extremities: Left Lower Extremity wrapped in bandage. Current Medications: Current Medications Sig/Zehra Start time Last Medication Dose Route Stop Time Status Admin Acetaminophen 650 MG Q6P PRN 12/12 2115 AC 12/18 PO 06 Alteplase, 2 MG ONCE ONE 12/23 1000 DC 12/23 Recombinant IPL 12/23 1001 1143 Calcium Carbonate 500 MG ONCE ONE 12/23 1845 DC 12/23 PO 12/23 1846 1930 Clopidogrel Bisulfate 75 MG DAILY 12/20 1730 AC 12/23 PO 0808 Docusate Sodium 100 MG DAILY NEEDED PRN 12/13 1200 AC PO Furosemide 40 MG 1500 12/23 1500 DC 06 PO 12/23 1501 1646 Gabapentin 100 MG 4 TIMES/DAY 12/13 1000 AC 12/24 PO 0853 Heparin Sodium 5,000 UNIT Q8 12/12 2200 AC 12/24 (Porcine) SC 0531 Hydromorphone HCl 0.6 MG ONCE PRN 12/21 0045 AC 12/21 IV 1545 Hydromorphone HCl 1 MG Q3P PRN 12/20 1545 AC 12/24 IV 0719 Insulin Aspart 0 TIDAC 12/21 0800 DC 12/23 SC 1756 Insulin Aspart 0 AT BEDTIME 12/19 2200 AC 12/23 SC 2309 Insulin Detemir 10 UNITS BID 12/23 1000 AC 12/23 SC 2308 Insulin Human Regular 0 Q6 12/23 2359 AC 12/24 SC 0532 Morphine Sulfate 15 MG Q8 12/19 2200 AC 12/24 PO 0532 Nicotine 21 MG DAILY 12/13 1000 AC 12/23 TOP 0807 Piperacillin Sod/ 3.375 GM Q6H 12/20 2030 AC 12/24 Tazobactam Sod IV 0852 Sodium Chloride 100 ML Polyethylene Glycol 17 GM DAILY 12/13 1149 AC 12/18 PO 0821 Pravastatin Sodium 80 MG 1700 12/13 1700 AC 12/23 PO 1646 Senna/Docusate Sodium 2 TAB DAILY NEEDED PRN 12/13 1200 AC PO Vancomycin HCl 1,000 MG ONCE ONE 12/23 0945 DC 12/23 Sodium Chloride 250 ML IV 12/23 1044 1056 Zolpidem Tartrate 10 MG AT BEDTIME NEED.. 12/12 211 AC 12/17 PO 2038 Last 24 Hrs of Lab/Jabier Results Last 24 Hrs of Labs/Mics: Laboratory Tests 12/24/16 0615: Sodium Pending, Potassium Pending, Chloride Pending, Carbon Dioxide Pending, Anion Gap Pending, BUN Pending, Creatinine Pending, BUN/Creatinine Ratio Pending , CBC w Diff Pending, WBC Pending, RBC Pending, Hgb Pending, Hct Pending, MCV Pending, MCH Pending, RDW Pending, Plt Count Pending, MPV Pending, PUBS MCHC Pending, Random Vancomycin Pending Assessment/Plan Assessment: Mr. Rudd is a 56 YO M current active smoker, with PMH of uncontrolled diabetes mellitus type 2, peripheral neuropathy, hypertension, hyperlipidemia, nonhealing ulcer of the left foot, was brought in by ambulance for fever up to 102.6, chills, painful and swollen left foot with drainage. Labs (WBC 21.8, ESR >130, CRP > 9) and imaging concerning for osteomyelitis, patient was taken to the OR by Dr. Sanchez on 12/12/16 for first ray resection. Subsequently transferred to post op. Osteomyelitis of left foot s/p resection Cultures: Citrobacter, Pseudomonas, Enterococcus, MRSA * Check vancomycin level. If below 15, give another 1g of Vanco. Patient was dosed 1000mg today after vancomycin level was 8.8 * Continue on Zosyn 3.375g IV Q6 * Monitor WBC daily * Weight-bearing status heel touch * Adequate pain control - MS Contin 15 mg Q8H with Dilaudid 1 mg IV Q3P for breakthrough * Appreciate ID and podiatry input . * Patient scheduled to go to the OR tomorrow for wound VAC placement. Will make nothing by mouth overnight. Anemia * Monitor CBC daily, trend H/H. * Patient's initial H/H was 7.1 and 21.9, repeated, 8.4 and 25.6. He was transfused 1 unit of PRBC 12/23/2016. Peripheral vascular disease * Uncontrolled diabetic, actively smoking 2 packs per day. * Duplex left lower extremity shows increased velocities in profunda femoris artery, which is suggestive of stenosis of distal right superficial femoral artery. This critical finding was shared with vascular surgeon Dr. Prather, who mentioned that the patient should go angiogram, tolerated procedure well. Uncontrolled Diabetes mellitus (on oral hypoglycemics) with neuropathy Hemiglobin A1c of 8.4 * FS, 221 * Started the patient on Levemir 10 units twice a day. * Novolog SSI with accuchecks, continue medium dose sliding scale. * Continue Gabapentin 100 mg 4 times a day * Holding home glyburide and metformin History of Hypertension * Holding Lisinopril 10 mg daily. Current BP: 110/62 History of Hyperlipidemia * Pravastatin 80 mg daily JOEY Echocardiogram for assessment of ejection fraction, and to ensure adequate renal perfusion. * Check renal fx daily: BUN: 24, 1.6 * 24 hour urine Protein: 1248 and Cr:1.2 * Follow SPEP/UPEP Nicotine dependence * Nicotine patch 21 mg daily * Smokes 2 packs daily Sleep * Continue Zolpidem 10 mg at bedtime as needed Diet: heart healthy DVT ppx: Heparin subcutaneous and alps FULL CODE Problem List: 1. Cellulitis of left foot 2. Diabetic foot ulcer 3. Osteomyelitis of left foot Pain Ratin Pain Location: LEft Lower extremity Pain Goal: Remain pain free Pain Plan: Dilaudid and MS Contin Tomorrow's Labs & Rationales: BEP: Monitor electrolytes in the setting of JOEY Random Vancomycin level Consulting Request: Consulting Specialty: Infectious Disease Consulting Physician: Dr. Chi Reason for Consult: Osteomyelitis OMAR SWEET MD 12/24/165: Attending MD Review Statement Attending Statement Attending MD Statement: examined this patient, discuss w/resident/PA/BLENDING MACHINE FEEDER, agreed w/resident/PA/BLENDING MACHINE FEEDER, reviewed EMR data (avail) Attending Assessment/Plan: 56M PMH HTN, HLD, T2DM, diabetic peripheral polyneuropathy admitted with sepsis secondary to acute osteomyelitis of the left foot s/p incision and drainage on by podiatry, with wound cultures growing mRSA and polymicrobial organisms. Underwent surgical revision of foot on 12/17 and angiogram on 12/20 with s/p angioplasty/stent of left SFA, angioplasty of left tibioperoneal trunk. Patient feels well. Has no complaints other than not sleeping well the night prior. 1. Sepsis secondary to mRSA (resolved) 2. Acute osteomyelitis of left foot 3. Left SFA stenosis 4. Peripheral arterial disease 5. T2DM with diabetic polyneuropathy Plan - Continue on general medicine - Continue Vancomycin and Zosyn - Monitor renal function - Follow cultures - Follow ID, podiatry, vascular, nephrology recommendations - Monitor fingerstick levels - Continue home medications - DVT PPx - Will follow podiatry recommendations. When no further surgeries will discharge patient to [facility].
--- NOTE | 2016-12-24 07:48 | ECHOCARDIOGRAM REPORT ---
JASPREET DELGADO Age: 56 : 1960 Gender: M Exam Date: 12/23/2016 20:03 Exam Location: 2 [address] Ht (in): 63 Wt (lb): 256 BSA: 2.34 BP: 134 / 70 Ordering Physician: MEGA ALVARADO MD Referring Physician: MEGA ALVARADO MD Technologist: Virginia Adame JIL Room Number: 232 Indications: HYPERTENSION Rhythm: Sinus Technical Quality: fair FINDINGS Left Ventricle Normal size left ventricle. Left ventricular wall thickness mildly increased. Normal left ventricular ejection fraction estimated at 60-65%. Right Ventricle Normal right ventricular size and function. Right Atrium Normal right atrial size. Left Atrium Mild left atrial dilatation. Mitral Valve Mitral valve not well visualized, grossly normal. Trace mitral regurgitation. Aortic Valve Diffuse thickening (sclerosis) of the aortic valve cusps without reduced excursion. Tricuspid Valve Tricuspid valve is normal in structure and function. Trace to mild tricuspid regurgitation. Pulmonic Valve Pulmonic valve not well visualized, grossly normal. Pericardium No pericardial effusion. Great Vessels Normal size aortic root. CONCLUSIONS Normal left ventricular systolic function with mild concentric hypertrophy. Mild left atrial enargement. No significant valvular abnormalities noted. Anoop Chin M.D. (Electronically Signed) Final Date: 24 December 2016 07:47 MEASUREMENTS (Male / Female) Normal Values 2D ECHO LV Diastolic Diameter PLAX 4.7 cm 4.2 - 5.9 / 3.9 - 5.3 cm LV Systolic Diameter PLAX 3.1 cm 2.1 - 4.0 cm LV Fractional Shortening PLAX 34.0 % 25 - 46 % LV Ejection Fraction 2D Teich 63.0 % IVS Diastolic Thickness 1.3 cm LVPW Diastolic Thickness 1.3 cm LV Relative Wall Thickness 0.6 RV Internal Dim ED PLAX 3.2 cm 1.9 - 3.8 cm LVOT Diameter 2.2 cm Aortic Root Diameter 2.6 cm LA Systolic Diameter LX 4.3 cm 3.0 - 4.0 / 2.7 - 3.8 cm LA Volume 43.0 cm 18 - 58 / 22 - 52 cm Ascending Aorta Diameter 3.3 cm DOPPLER AV Peak Velocity 133.0 cm/s AV Peak Gradient 7.1 mmHg AV Mean Velocity 100.0 cm/s AV Mean Gradient 4.0 mmHg AV Velocity Time Integral 28.8 cm LVOT Peak Velocity 107.0 cm/s LVOT Peak Gradient 4.6 mmHg LVOT Mean Velocity 75.2 cm/s LVOT Mean Gradient 3.0 mmHg LVOT Velocity Time Integral 21.3 cm LVOT Stroke Volume 81.0 cm AV Area Cont Eq vti 2.8 cm AV Area Cont Eq pk 3.1 cm MV Peak Velocity 105.0 cm/s MV Peak Gradient 4.4 mmHg MV Mean Velocity 68.6 cm/s MV Mean Gradient 2.0 mmHg Mitral E Point Velocity 97.7 cm/s Mitral A Point Velocity 75.0 cm/s Mitral E to A Ratio 1.3 MV PHT Velocity 112.0 cm/s MV Deceleration Gallia 564.0 cm/s MV Pressure Half Time 59.6 ms MV Area PHT 3.7 cm MV Deceleration Time 211.0 ms PV Peak Velocity 145.0 cm/s PV Peak Gradient 8.4 mmHg PV Mean Velocity 94.0 cm/s PV Mean Gradient 4.0 mmHg PV Velocity Time Integral 32.7 cm LV E' Lateral Velocity 14.1 cm/s Mitral E to LV E' Lateral Ratio 6.9 LV E' Septal Velocity 9.6 cm/s Mitral E to LV E' Septal Ratio 10.2
[2016-12-24 08:37] LABS: ABSOLUTE BASOPHIL COUNT 0.1 /CUMM (0.0-0.2); ABSOLUTE EOSINOPHIL COUNT 0.3 /CUMM (0.0-0.7); ABSOLUTE MONOCYTE COUNT 0.6 /CUMM (0.10-0.60)
[2016-12-24 09:21] LABS: ABSOLUTE GRANULOCYTE CT 8.7 /CUMM (1.4-6.5); BASOPHIL % 0.5 % (0.0-2.0); EOSINOPHIL % 2.2 % (0-5); GRANULOCYTE % 74.9 % (42.2-75.2); HEMATOCRIT 21.9 % (42-52); MEAN CORPUSCULAR HGB 26.7 PG (27.0-31.0); MEAN CORPUSCULAR HGB CONC 32.6 G/DL (33.0-37.0); MEAN CORPUSCULAR VOLUME 81.8 FL (80.0-94.0); MEAN PLATELET VOLUME 7.8 FL (7.4-10.4); PLATELET COUNT 322 /CUMM (130-400); RED BLOOD CELL CT 2.67 /CUMM (4.70-6.10); WHITE BLOOD CELL COUNT 11.6 /CUMM (4.8-10.8)
[2016-12-24 11:00] LABS: ABSOLUTE BASOPHIL COUNT 0.1 /CUMM (0.0-0.2); ABSOLUTE EOSINOPHIL COUNT 0.3 /CUMM (0.0-0.7); ABSOLUTE GRANULOCYTE CT 8.4 /CUMM (1.4-6.5); ABSOLUTE LYMPH COUNT 2.2 /CUMM (1.2-3.4); ABSOLUTE MONOCYTE COUNT 0.7 /CUMM (0.10-0.60); BASOPHIL % 0.5 % (0.0-2.0); GRANULOCYTE % 71.9 % (42.2-75.2); HEMATOCRIT 25.6 % (42-52); MEAN CORPUSCULAR HGB 26.7 PG (27.0-31.0); MEAN CORPUSCULAR HGB CONC 32.8 G/DL (33.0-37.0); MEAN CORPUSCULAR VOLUME 81.2 FL (80.0-94.0); MEAN PLATELET VOLUME 7.9 FL (7.4-10.4); PLATELET COUNT 378 /CUMM (130-400); RBC DISTRIBUTION WIDTH 17.6 % (11.5-14.5); RED BLOOD CELL CT 3.16 /CUMM (4.70-6.10); WHITE BLOOD CELL COUNT 11.6 /CUMM (4.8-10.8)
[2016-12-24 11:10] LABS: PT 13.9 SEC (9.4-12.5); PTT 24 SEC (25-37)
--- NOTE | 2016-12-24 11:40 | NUR ---
PHYSICAL THERAPY: Pt SCHEDULED FOR SURGICAL PROCEDURE I&D AND WOUNDVAC AT NOON; P.T. WILL DEFER Tx AT THIS TIME AND F/U APPROPRIATE TOMORROW.
[2016-12-24] MEDS ORDERED: NOVOLOG100 UNIT/2 SC (12:12)
[2016-12-24] MEDS ORDERED: LEVEMIR100 UNIT/1 SC (12:12)
--- NOTE | 2016-12-24 13:34 | Operative Report ---
Operative/Inv Procedure Report Surgery Date: 12/24/16 Name of Procedure: 1 open incision and drainage deep to the deep fascia with exposure of the extensor and flexor tendon and tendon sheath multiple sites left foot 2 intraoperative administration of negative pressure wound therapy 3 intraoperative administration of ankle block anesthesia 4 excisional debridement Pre-Operative Diagnosis: 1 open necrotic wound left foot 2 osteomyelitis left foot 3 diabetic peripheral neuropathy 4 peripheral arterial disease Post-Operative Diagnosis: The same Estimated Blood Loss: less than 50ml Surgeon/Director New Product: MARIBELL GUTIERREZ DPM Anesthesia: local monitored anesthesi, moderate sedation Operative/Procedure Note Note: After obtaining informed consent the patient was brought to the operating room and placed on the operating table in the supine position. The patient was then securely fastened to the operating table utilizing safety belt. After administration of IV sedation, 10 mL of 0.5% Marcaine plain was infiltrated about the patient's left ankle. The left foot and ankle within scrubbed prepped and draped in usual aseptic manner. Attention directed to the medial left foot where a large full-thickness chronic was identified. The lesion was noted to measure 18 cm x 5 cm x 5 cm. A 15 blade was utilized sharply revised skin margins. He dissection was then carried down deep to the deep fascia with exposure of the extensor and flexor tendon and tendon sheath multiple sites, both proximally and distally. All necrotic nonviable and infected tissue sharply evacuated from the wound bed. The open wound was then irrigated with 3 L of normal sterile saline infused with 50,000 units of bacitracin. Following this, the foot was redraped and the surgeon's top gloves were exchanged for clean gloves. Any bleeding vessels identified were cauterized or ligated as encountered. Following this, negative pressure wound therapy was applied followed by Shanti. The patient was noted to tolerate both procedure and anesthesia well and the patient was transported from the operating room to recovery with vital signs stable.
--- NOTE | 2016-12-24 13:35 | NUR ---
Patient in OR, OT not able to see today.
[2016-12-24 14:45] VITALS: BP 130/80
--- NOTE | 2016-12-24 14:45 | NUR ---
PT BACK FROM OR, S/P I AND D, WOUND VAC PLACEMENT TO LEFT FOOT, PT AXO, DENIES PAIN, LEFT FOOT DSG INTACT, PT REORIENTED BACK TO ROOM.
[2016-12-24 22:50] VITALS: BP 120/68
[2016-12-25 06:00] VITALS: BP 110/62
--- NOTE | 2016-12-25 06:22 | PN- Housestaff ---
See Addendum Subjective Follow-up For: Osteomyelitis Subjective: Mr Rudd was seen and examined this morning. He is resting comfortably in bed. He endorses no issues overnight. Patient states that he does feel better. He states that his pain is well controlled and states he recently just received his Dilaudid. He denies any fever, chills, nausea, vomiting. Patient states he's been tolerating by mouth intake well. He last had a bowel movement yesterday. Review of Systems Constitutional: Reports: see HPI. Objective Last 24 Hrs of Vital Signs/I&O Vital Signs Date Time Temp Pulse Resp B/P B/P Pulse O2 O2 Flow FiO2 Mean Ox Delivery Rate 12/25 0600 98.1 71 18 110/62 96 Room Air 12/24 2250 99.1 90 18 120/68 96 12/24 1445 97.7 86 18 130/80 99 Room Air Intake & Output 12/25 1600 12/25 0800 12/25 0000 Intake Total 510 1210 Output Total 300 1000 Balance 210 210 Intake, IV 150 410 Intake, Oral 360 800 Number 1 Bowel Movements Output, Urine 300 1000 Physical Exam General Appearance: Alert, Oriented X3, Cooperative Skin: No Rashes Cardiovascular: Normal S1, Normal S2 Lungs: Clear to Auscultation Abdomen: Normal Bowel Sounds, Soft, No Tenderness Neurological: Normal Speech Extremities: No Edema, Left Lower Extremity, wrapped in bandage. Wound Vac in place Current Medications: Current Medications Sig/Zehra Start time Last Medication Dose Route Stop Time Status Admin Acetaminophen 650 MG Q6P PRN 12/12 2115 AC 12/18 PO 0627 Clopidogrel Bisulfate 75 MG DAILY 12/20 1730 AC 12/23 PO 0808 Docusate Sodium 100 MG DAILY NEEDED PRN 12/13 1200 AC PO Fentanyl Citrate 100 MCG .STK-MED ONE 12/24 1200 DC IM 12/24 1201 Gabapentin 100 MG 4 TIMES/DAY 12/13 1000 AC 12/24 PO 2217 Heparin Sodium 5,000 UNIT Q8 12/12 2200 AC 12/25 (Porcine) SC 0630 Hydromorphone HCl 0.6 MG ONCE PRN 12/21 0045 AC 12/21 IV 1545 Hydromorphone HCl 1 MG Q3P PRN 12/20 1545 AC 12/25 IV 0727 Insulin Aspart 0 TIDAC 06/13 1700 AC SC Insulin Aspart 0 AT BEDTIME 12/19 2200 AC 12/24 SC 2217 Insulin Detemir 10 UNITS BID 12/23 1000 AC 12/24 SC 2217 Insulin Human Regular 0 Q6 12/23 2359 DC 12/24 SC 0532 Midazolam HCl 2 MG .STK-MED ONE 12/24 1200 DC IM 12/24 1201 Morphine Sulfate 15 MG Q8 12/19 2200 AC 12/25 PO 0631 Nicotine 21 MG DAILY 12/13 1000 AC 12/24 TOP 1631 Piperacillin Sod/ 3.375 GM Q6H 12/20 2030 AC 12/25 Tazobactam Sod IV 0125 Sodium Chloride 100 ML Polyethylene Glycol 17 GM DAILY 12/13 1149 AC 12/18 PO 0821 Pravastatin Sodium 80 MG 1700 12/13 1700 AC 12/24 PO 1631 Senna/Docusate Sodium 2 TAB DAILY NEEDED PRN 12/13 1200 AC PO Vancomycin HCl 1,000 MG ONCE ONE 12/24 1200 DC 12/24 Sodium Chloride 250 ML IV 12/24 1259 1556 Zolpidem Tartrate 10 MG AT BEDTIME NEED.. 12/12 2115 AC 12/17 PO 2038 Last 24 Hrs of Lab/Jabier Results Last 24 Hrs of Labs/Mics: Laboratory Tests 12/25/16 0638: Sodium Pending, Potassium Pending, Chloride Pending, Carbon Dioxide Pending, Anion Gap Pending, BUN Pending, Creatinine Pending, BUN/Creatinine Ratio Pending , Random Vancomycin Pending 12/24/16 1010: Anion Gap 14, Estimated GFR 45 L, BUN/Creatinine Ratio 15.0, PT 13.9 H, INR 1.33 H, APTT 24 L, CBC w Diff NO MAN DIFF REQ, RBC 3.16 L, MCV 81.2, MCH 26.7 L, RDW 17.6 H, MPV 7.9, Gran % 71.9, Lymphocytes % 18.7 L, Monocytes % 5.9, Eosinophils % 3.0, Basophils % 0.5, Absolute Granulocytes 8.4 H, Absolute Lymphocytes 2.2, Absolute Monocytes 0.7 H, Absolute Eosinophils 0.3, Absolute Basophils 0.1, PUBS MCHC 32.8 L, Random Vancomycin 8.8 Assessment/Plan Assessment: Mr. Rudd is a 56 YO M current active smoker, with PMH of uncontrolled diabetes mellitus type 2, peripheral neuropathy, hypertension, hyperlipidemia, nonhealing ulcer of the left foot, was brought in by ambulance for fever up to 102.6, chills, painful and swollen left foot with drainage. Labs (WBC 21.8, ESR >130, CRP > 9) and imaging concerning for osteomyelitis, patient was taken to the OR by Dr. Sanchez on 12/12/16 for first ray resection. Subsequently transferred to post op. Osteomyelitis of left foot s/p resection Cultures: Citrobacter, Pseudomonas, Enterococcus, MRSA * Check vancomycin level daily.Vancomycin level today: 9.6. Dosed Vancomycin 1250 mg * Continue on Zosyn 3.375g IV Q6 * Monitor WBC daily * Weight-bearing status heel touch * Adequate pain control -MSIR 15 mg Q4 and fentanyl patch 50 mcg Q72 H * Appreciate ID and podiatry input . * Patient scheduled to go to the OR tomorrow for wound VAC placement. Will make nothing by mouth overnight. Anemia * Monitor CBC daily, trend H/H. * Patient's initial H/H was 7.1 and 21.9, repeated, 8.4 and 25.6. * He was transfused 1 unit of PRBC 12/23/2016. * H/H Stable Peripheral vascular disease * Uncontrolled diabetic, actively smoking 2 packs per day. * Duplex left lower extremity shows increased velocities in profunda femoris artery, which is suggestive of stenosis of distal right superficial femoral artery. This critical finding was shared with vascular surgeon Dr. Prather, who mentioned that the patient should go angiogram, tolerated procedure well. Uncontrolled Diabetes mellitus (on oral hypoglycemics) with neuropathy Hemiglobin A1c of 8.4 * FS,183,288 * Started the patient on Levemir 10 units twice a day. * Novolog SSI with accuchecks, continue medium dose sliding scale. * Continue Gabapentin 100 mg 4 times a day * Holding home glyburide and metformin History of Hypertension * Holding Lisinopril 10 mg daily. Current BP: 110/62 History of Hyperlipidemia * Pravastatin 80 mg daily JOEY Echocardiogram for assessment of ejection fraction, and to ensure adequate renal perfusion. * Check renal fx daily: BUN: 23, 1.4. No lasix given today. * 24 hour urine Protein: 1248 and Cr:1.2 * Follow SPEP/UPEP Nicotine dependence * Nicotine patch 21 mg daily * Smokes 2 packs daily Sleep * Continue Zolpidem 10 mg at bedtime as needed Diet: heart healthy DVT ppx: Heparin subcutaneous and alps FULL CODE Problem List: 1. Cellulitis of left foot 2. Diabetic foot ulcer 3. Osteomyelitis of left foot 4. Diabetes Pain Ratin Pain Location: LLE Pain Goal: Remain pain free Pain Plan: Fentanly 50 MCG Q 72 MSIR 15 mg Tomorrow's Labs & Rationales: Vancomycin level Consulting Request: Consulting Specialty: Infectious Disease Consulting Physician: Dr. Chi Reason for Consult: Osteomyelitis
[2016-12-25 15:29] VITALS: BP 118/60
--- NOTE | 2016-12-25 16:00 | PN- Infect Dx ---
Subjective Subjective: Afebrile. He continues to complain of pain in the left foot Objective Last 24 Hrs of Vital Signs/I&O Vital Signs Date Time Temp Pulse Resp B/P B/P Pulse O2 O2 Flow FiO2 Mean Ox Delivery Rate 12/25 1529 98.1 78 20 118/60 96 12/25 0600 98.1 71 18 110/62 96 Room Air 12/24 2250 99.1 90 18 120/68 96 Intake & Output 12/25 1600 12/25 0800 12/25 0000 Intake Total 785 990 6307 Output Total 810 236 4649 Balance 300 210 210 Intake, IV 150 410 Intake, Oral 500 360 800 Number 1 Bowel Movements Output, Urine 156 815 6482 Physical Exam Other Physical Findings: He appears comfortable in no acute distress Extremities left foot dressing and wound VAC in place; PICC in the right upper extremity with no inflammation at the site Results Last 24 Hours of Lab Results: Laboratory Tests 12/25 0638 Chemistry Sodium (137 - 145 mmol/L) 136 L Potassium (3.5 - 5.1 mmol/L) 4.5 Chloride (98 - 107 mmol/L) 104 Carbon Dioxide (22 - 30 mmol/L) 22 Anion Gap (5 - 16) 10 BUN (9 - 20 mg/dL) 23 H Creatinine (0.7 - 1.2 mg/dL) 1.4 H Estimated GFR (>60 ml/min) 52 L BUN/Creatinine Ratio (7 - 25 %) 16.4 Toxicology Random Vancomycin (ug/ml) 9.6 Last 24 Hours of Jabier Results: No recent cultures Assessment/Plan Impression: Stable status post further debridement of the soft tissues of the left foot yesterday, with no bone debrided, now 5 days status post his previous debridement of bone and soft tissues (as well as left leg angioplasty and stenting) for polymicrobial osteomyelitis, status post left first ray resection 13 days ago. He remains afebrile with white blood cell count minimally elevated on Zosyn and Vancomycin, which continues to be dosed based on random levels, with his creatinine gradually improving. Suggestion: 1. Would repeat ESR 2. Obtain a baseline postop x-ray of the left foot 3. Would dose Vancomycin 1 g IV every 12 hours and recheck a trough level with the fifth dose 4. Continue Zosyn
[2016-12-25 22:26] VITALS: BP 110/62
--- NOTE | 2016-12-25 23:03 | RADIOLOGY REPORT ---
EXAMINATION: XR FOOT, LEFT CLINICAL INFORMATION: Post operative x-ray of the left foot. Status post debridement of the left foot. COMPARISON: Plain films of the left foot 12/12/2016. TECHNIQUE: AP, lateral, and oblique views of the left foot. FINDINGS: Multiple views of the left foot demonstrate postsurgical changes related to interval transmetatarsal amputation of the first digit of the left foot. The cut margin appears unremarkable. The remaining four digits of the left foot also appear grossly unremarkable. No new cortical destruction or significant periosteal reaction is identified. IMPRESSION: Postsurgical changes related to interval transmetatarsal amputation of the first digit of the left foot. The cut margin appears unremarkable. No new cortical destruction or significant periosteal reaction is identified.
--- NOTE | 2016-12-26 06:15 | PN- Housestaff ---
CORINNE PENDLETON,[facility] 12/26/16 0614: Subjective Follow-up For: Osteomylitis Subjective: Mr Rudd was seen and examined this morning. Resting comfortably on the chair beside his bed. Patient states that he was unable to get much rest last night. States that his pain is continue to be uncontrolled. Currently rates pain at a 6-1/2 out of 10 in severity. Patient states that pain from left lower extremity and chronic back pain both on the same scale. He denies any fever, chills, nausea, vomiting. He requests to be considered back to the placed on the IV pain medication. Review of Systems Constitutional: Reports: see HPI. Objective Last 24 Hrs of Vital Signs/I&O Vital Signs Date Time Temp Pulse Resp B/P B/P Pulse O2 O2 Flow FiO2 Mean Ox Delivery Rate 12/26 0755 99.2 76 20 116/64 95 Room Air 12/25 2226 98.8 77 18 110/62 96 Room Air 12/25 1529 98.1 78 20 118/60 96 Intake & Output 12/26 1600 12/26 0800 12/26 0000 Intake Total 390 1500 Output Total 1350 1100 Balance -960 400 Intake, IV 150 600 Intake, Oral 240 900 Output, Urine 1350 1100 Physical Exam General Appearance: Alert, Oriented X3 Cardiovascular: Regular Rate, Normal S1, Normal S2 Lungs: Clear to Auscultation Abdomen: Normal Bowel Sounds, Soft, No Tenderness Neurological: Normal Speech Extremities: Edema 2+. Chronic Venous stasis Vascular: Normal Pulses Current Medications: Current Medications Sig/Zehra Start time Last Medication Dose Route Stop Time Status Admin Acetaminophen 650 MG Q6P PRN 12/12 2115 AC 12/18 PO 0627 Clopidogrel Bisulfate 75 MG DAILY 12/20 1730 AC 12/25 PO 0850 Docusate Sodium 100 MG DAILY NEEDED PRN 12/13 1200 AC PO Fentanyl Citrate 50 MCG Q72H 12/25 1230 AC 12/25 TOP 1315 Gabapentin 100 MG 4 TIMES/DAY 12/13 1000 AC 12/25 PO 2140 Heparin Sodium 5,000 UNIT Q8 12/12 2200 AC 12/26 (Porcine) SC 0550 Hydromorphone HCl 0.6 MG ONCE ONE 12/25 2245 DC 12/25 IV 12/25 2246 2318 Hydromorphone HCl 2 MG .STK-MED ONE 12/25 1038 DC IM 12/25 1039 Hydromorphone HCl 0.6 MG ONCE PRN 12/21 0045 DC 12/25 IV 1606 Hydromorphone HCl 1 MG Q3P PRN 12/20 1545 DC 12/25 IV 1039 Insulin Aspart 0 TIDAC 12/24 1700 AC 12/26 SC 0834 Insulin Aspart 0 AT BEDTIME 12/19 2200 AC 12/25 SC 2140 Insulin Detemir 10 UNITS BID 12/23 1000 AC 12/25 SC 2139 Morphine Sulfate 15 MG Q4P PRN 12/25 1230 AC 12/26 PO 0834 Morphine Sulfate 15 MG Q8 12/19 2200 DC 12/25 PO 0631 Nicotine 21 MG DAILY 12/13 1000 AC 12/25 TOP 1226 Piperacillin Sod/ 3.375 GM Q6H 12/20 2030 AC 12/26 Tazobactam Sod IV 0834 Sodium Chloride 100 ML Polyethylene Glycol 17 GM DAILY 12/13 1149 AC 12/18 PO 0821 Pravastatin Sodium 80 MG 1700 12/13 1700 AC 12/25 PO 1646 Senna/Docusate Sodium 2 TAB DAILY NEEDED PRN 12/13 1200 AC PO Vancomycin HCl 1,000 MG Q12 12/25 2200 AC 12/25 Sodium Chloride 250 ML IV 2141 Vancomycin HCl 1,250 MG ONCE ONE 12/25 1330 DC 12/25 Sodium Chloride 250 ML IV 12/25 1429 1646 Zolpidem Tartrate 10 MG AT BEDTIME NEED.. 12/12 2115 AC 12/26 PO 0236 Last 24 Hrs of Lab/Jabier Results Last 24 Hrs of Labs/Mics: Laboratory Tests 12/26/16 0545: Random Vancomycin 20.6 12/25/16 1900: ESR Westergren > 130 H Assessment/Plan Assessment: Mr. Rudd is a 56 YO M current active smoker, with PMH of uncontrolled diabetes mellitus type 2, peripheral neuropathy, hypertension, hyperlipidemia, nonhealing ulcer of the left foot, was brought in by ambulance for fever up to 102.6, chills, painful and swollen left foot with drainage. Labs (WBC 21.8, ESR >130, CRP > 9) and imaging concerning for osteomyelitis, patient was taken to the OR by Dr. Sanchez on 12/12/16 for first ray resection. Subsequently transferred to post op. Osteomyelitis of left foot s/p resection Cultures: Citrobacter, Pseudomonas, Enterococcus, MRSA * Check Vancomycin trough level in am.Vancomycin level today: 20.6. Dosed Vancomycin 1000 mg Q12. Will require coverage till 01/16/2017. * Continue on Zosyn 3.375g IV Q6 * Strict non weight bearing on left foot. * Adequate pain control -MSIR 15 mg Q4 and fentanyl patch 75 mcg Q72 H * Appreciate ID and podiatry input . Anemia * Patient's initial H/H was 7.1 and 21.9, repeated, 8.4 and 25.6. * He was transfused 1 unit of PRBC 12/23/2016. * H/H Stable Peripheral vascular disease * Uncontrolled diabetic, actively smoking 2 packs per day. * Duplex left lower extremity shows increased velocities in profunda femoris artery, which is suggestive of stenosis of distal right superficial femoral artery. This critical finding was shared with vascular surgeon Dr. Prather, who mentioned that the patient should go angiogram, tolerated procedure well. Uncontrolled Diabetes mellitus (on oral hypoglycemics) with neuropathy Hemiglobin A1c of 8.4 * FS, 252 * Started the patient on Levemir 10 units twice a day. * Novolog SSI with accuchecks, continue medium dose sliding scale. * Continue Gabapentin 100 mg 4 times a day * Holding home glyburide and metformin History of Hypertension * Holding Lisinopril 10 mg daily. Current BP: 122/60 History of Hyperlipidemia * Pravastatin 80 mg daily JOEY Echocardiogram for assessment of ejection fraction, and to ensure adequate renal perfusion. * Check renal fx daily: BUN: 23, 1.4. Lasix, held. * 24 hour urine Protein: 1248 and Cr:1.2 Nicotine dependence * Nicotine patch 21 mg daily * Smokes 2 packs daily Sleep * Continue Zolpidem 10 mg at bedtime as needed Diet: heart healthy DVT ppx: Heparin subcutaneous and alps FULL CODE Problem List: 1. Osteomyelitis of left foot 2. Diabetes Pain Ratin Pain Location: Chronic Back and Left lower extemmity Pain Goal: Remain pain free Pain Plan: Fentanly and MSIR Tomorrow's Labs & Rationales: Vancomycin Trough Consulting Request: Consulting Specialty: Infectious Disease Consulting Physician: Dr. Chi Reason for Consult: Osteomyelitis OMAR SWEET MD 12/26/16 1538: Attending MD Review Statement Attending Statement Attending MD Statement: examined this patient, discuss w/resident/PA/[employer], agreed w/resident/PA/[employer] BU[employer]ER, reviewed EMR data (avail) Attending Assessment/Plan: 56M PMH HTN, HLD, T2DM, diabetic peripheral polyneuropathy admitted with sepsis secondary to acute osteomyelitis of the left foot s/p incision and drainage on by podiatry, with wound cultures growing mRSA and polymicrobial organisms. Underwent surgical revision of foot on 12/17 and angiogram on 12/20 with s/p angioplasty/stent of left SFA, angioplasty of left tibioperoneal trunk. Patient feels well. His pain is less controlled since switching from IV Dilaudid to MS-IR and Fentanyl patch. 1. Sepsis secondary to mRSA (resolved) 2. Acute osteomyelitis of left foot 3. Left SFA stenosis 4. Peripheral arterial disease 5. T2DM with diabetic polyneuropathy Plan - Continue on general medicine - Increase Fentanyl patch to 75mcg - Will consider increasing Morphine-IR to 30mg q4h PRN - Continue Vancomycin and Zosyn - Check Vancomycin trough tomorrow - Monitor renal function - Follow cultures - Follow ID, podiatry, vascular, nephrology recommendations - Monitor fingerstick levels - Continue home medications - DVT PPx - Anticipated discharge tomorrow. Please send CMR to pharmacy for review
[2016-12-26 07:55] VITALS: BP 116/64
[2016-12-26 14:41] VITALS: BP 122/60
[2016-12-26] MEDS ORDERED: DURAGESIC1 EAC3 TOP (14:45)
[2016-12-26] MEDS ORDERED: MORPHINE SULFAT15 M4 PO (14:45)
--- NOTE | 2016-12-26 15:00 | NUR ---
ALTEPLASE PLACE TO PURPLE PORT OF DL PICC AT 1245. AT 1445, ABLE TO DRAW OUT AND RECEIVED BLOOD RETURN. CAPS REPLACED TO BOTH LUMENS AND BLOOD RETURN ACHIEVED ON BOTH LUMENS.
--- NOTE | 2016-12-26 15:02 | PN- Infect Dx ---
Subjective Subjective: Afebrile. He continues to complain of mild pain in the left foot Objective Last 24 Hrs of Vital Signs/I&O Vital Signs Date Time Temp Pulse Resp B/P B/P Pulse O2 O2 Flow FiO2 Mean Ox Delivery Rate 12/26 1441 98.1 80 20 122/60 98 Room Air 12/26 0755 99.2 76 20 116/64 95 Room Air 12/25 2226 98.8 77 18 110/62 96 Room Air 12/25 1529 98.1 78 20 118/60 96 Intake & Output 12/26 1600 12/26 0800 12/26 0000 Intake Total 390 1500 Output Total 650 1350 1100 Balance -650 -960 400 Intake, IV 150 600 Intake, Oral 240 900 Output, Urine 650 1350 1100 Physical Exam Other Physical Findings: He appears comfortable in no acute distress Extremities left foot dressing intact and wound VAC in place; PICC in the right upper extremity with no inflammation at the site Results Last 24 Hours of Lab Results: Laboratory Tests 12/26 12/25 0545 1900 Hematology ESR Westergren (0 - 10 MM) > 130 H Toxicology Random Vancomycin (ug/ml) 20.6 Last 24 Hours of Jabier Results: No new cultures Recent Imaging Studies: X-ray of the left foot December 25 reveals postsurgical changes with the cut margin appearing unremarkable and with no new cortical destruction or significant periosteal reaction identified Assessment/Plan Impression: Stable status post further debridement of the soft tissues of the left foot 2 days ago with no bone debrided, now 1 week since his most recent debridement of bone and soft tissues (as well as left leg angioplasty and stenting) for polymicrobial osteomyelitis, and 2 weeks status post left first ray resection. He remains afebrile with white blood cell count minimally elevated on Zosyn and Vancomycin, with his most recent creatinine improved though not back to his baseline. His random Vancomycin level this morning is of unclear significance as he received 2 doses of Vancomycin yesterday within 5 hours of each other. His ESR remains elevated and will need to be followed serially. Suggestion: 1. Recheck Vancomycin trough level in the a.m. 2. Strict nonweightbearing on the left foot per Podiatry 3. Continue Vancomycin and Zosyn to plan on a four-week course from his most recent debridement of bone (until January 16) 4. Will need weekly CBC, ESR, BUN/creatinine and Vancomycin trough level
[2016-12-26] MEDS ORDERED: PIPERACIL-TA3.375 GM IV (15:23)
[2016-12-26] MEDS ORDERED: VANCO 1 GR1 GM/250 M IV (15:23)
[2016-12-26 22:19] VITALS: BP 118/64
[2016-12-27 06:29] VITALS: BP 120/60
--- NOTE | 2016-12-27 07:57 | PN- Housestaff ---
Subjective Follow-up For: Ostemylitis. Subjective: Mr Rudd was seen and examined this morning. Resting comfortably in bed. Tolerating breakfast. States he had an uneventful night. Has had moderate relief from his pain and is currently comfortable. His MSIR was increased from 15 to 30 overnight. Denies any SOB, fever, chills, nausea, vomiting. Review of Systems Constitutional: Reports: see HPI. Objective Last 24 Hrs of Vital Signs/I&O Vital Signs Date Time Temp Pulse Resp B/P B/P Pulse O2 O2 Flow FiO2 Mean Ox Delivery Rate 12/27 0629 98.1 76 20 120/60 97 Room Air 12/26 2219 98.3 78 20 118/64 99 Room Air 12/26 1441 98.1 80 20 122/60 98 Room Air Intake & Output 12/27 1600 12/27 0800 12/27 0000 Intake Total 300 400 Output Total 75 700 Balance 225 -300 Intake, IV 380 Intake, Oral 300 20 Output, 75 Drainage Output, Urine 700 Physical Exam General Appearance: Alert, Oriented X3, Cooperative Cardiovascular: Regular Rate, Normal S1, Normal S2 Lungs: Clear to Auscultation Abdomen: Normal Bowel Sounds, Soft, No Tenderness Neurological: Normal Speech Extremities: Left lower extremity wrapped in bandage. Current Medications: Current Medications Sig/Zehra Start time Last Medication Dose Route Stop Time Status Admin Acetaminophen 650 MG Q6P PRN 12/12 2115 AC 12/18 PO 0627 Alteplase, 2 MG ONCE ONE 12/26 1115 DC 12/26 Recombinant IV 12/26 1116 1240 Clopidogrel Bisulfate 75 MG DAILY 12/20 1730 AC 12/26 PO 0938 Docusate Sodium 100 MG DAILY NEEDED PRN 12/13 1200 AC PO Fentanyl Citrate 75 MCG Q72H 12/28 1230 AC TOP Fentanyl Citrate 50 MCG Q72H 12/25 1230 DC 12/25 TOP 1315 Gabapentin 100 MG 4 TIMES/DAY 12/13 1000 AC 12/26 PO 2137 Heparin Sodium 5,000 UNIT Q8 12/12 2200 AC 12/27 (Porcine) SC 0623 Hydromorphone HCl 1 MG ONCE PRN 12/27 0845 AC IV Insulin Aspart 0 TIDAC 12/24 1700 AC 12/26 SC 1652 Insulin Aspart 0 AT BEDTIME 12/19 2200 AC 12/26 SC 2136 Insulin Detemir 10 UNITS BID 12/23 1000 AC 12/26 SC 2137 Morphine Sulfate 30 MG Q4P PRN 12/26 2315 AC 12/27 PO 0623 Morphine Sulfate 15 MG ONCE ONE 12/26 2315 DC 12/26 PO 12/26 2316 2337 Morphine Sulfate 15 MG Q4P PRN 12/25 1230 DC 12/26 PO 2125 Nicotine 21 MG DAILY 12/13 1000 AC 12/26 TOP 0937 Piperacillin Sod/ 3.375 GM Q6H 12/20 2030 AC 12/27 Tazobactam Sod IV 0150 Sodium Chloride 100 ML Polyethylene Glycol 17 GM DAILY 12/13 1149 AC 12/26 PO 0938 Pravastatin Sodium 80 MG 1700 12/13 1700 AC 12/26 PO 1653 Senna/Docusate Sodium 2 TAB DAILY NEEDED PRN 12/13 1200 AC PO Vancomycin HCl 1,000 MG Q12 12/25 2200 AC 12/26 Sodium Chloride 250 ML IV 2258 Zolpidem Tartrate 10 MG AT BEDTIME NEED.. 12/12 2115 12/27 PO 0232 Last 24 Hrs of Lab/Jabier Results Last 24 Hrs of Labs/Mics: Laboratory Tests 12/27/16 0630: Anion Gap 11, Estimated GFR 45 L, BUN/Creatinine Ratio 16.3, Vancomycin Trough 22.5 H 12/27/16 0619: Sodium Cancelled, Potassium Cancelled, Chloride Cancelled, Carbon Dioxide Cancelled, Anion Gap Cancelled, BUN Cancelled, Creatinine Cancelled, BUN/ Creatinine Ratio Cancelled Assessment/Plan Assessment: Mr. Rudd is a 56 YO M current active smoker, with PMH of uncontrolled diabetes mellitus type 2, peripheral neuropathy, hypertension, hyperlipidemia, nonhealing ulcer of the left foot, was brought in by ambulance for fever up to 102.6, chills, painful and swollen left foot with drainage. Labs (WBC 21.8, ESR >130, CRP > 9) and imaging concerning for osteomyelitis, patient was taken to the OR by Dr. Sanchez on 12/12/16 for first ray resection. Subsequently transferred to post op. Osteomyelitis of left foot s/p resection Cultures: Citrobacter, Pseudomonas, Enterococcus, MRSA * Check Vancomycin trough level in am: Dosed Vancomycin 1000 mg Q12. 22.5 Will require coverage till 01/16/2017. * Continue on Zosyn 3.375g IV Q6 * Strict non weight bearing on left foot. * Adequate pain control -MSIR 30 mg Q4 and fentanyl patch 75 mcg Q72 H * Appreciate ID and podiatry input . Anemia * Patient's initial H/H was 7.1 and 21.9, repeated, 8.7 and 27.1. * He was transfused 1 unit of PRBC 12/23/2016. * H/H Stable Peripheral vascular disease * Uncontrolled diabetic, actively smoking 2 packs per day. * Duplex left lower extremity shows increased velocities in profunda femoris artery, which is suggestive of stenosis of distal right superficial femoral artery. This critical finding was shared with vascular surgeon Dr. Prather, who mentioned that the patient should go angiogram, tolerated procedure well. Uncontrolled Diabetes mellitus (on oral hypoglycemics) with neuropathy Hemiglobin A1c of 8.4 * Started the patient on Levemir 10 units twice a day. * Novolog SSI with accuchecks, continue medium dose sliding scale. * Continue Gabapentin 100 mg 4 times a day * Holding home glyburide and metformin History of Hypertension * Holding Lisinopril 10 mg daily. Current BP: 120/60 History of Hyperlipidemia * Pravastatin 80 mg daily JOEY Echocardiogram for assessment of ejection fraction, and to ensure adequate renal perfusion. * Check renal fx daily: BUN: 26, 1.6 Lasix, held. * 24 hour urine Protein: 1248 and Cr:1.2 Nicotine dependence * Nicotine patch 21 mg daily * Smokes 2 packs daily Sleep * Continue Zolpidem 10 mg at bedtime as needed Diet: heart healthy DVT ppx: Heparin subcutaneous and alps FULL CODE Problem List: 1. Cellulitis of left foot Pain Ratin Pain Location: Chronic Back Pain Goal: Remain pain free Pain Plan: MSIR Fentanyl Patch Tomorrow's Labs & Rationales: None Consulting Request: Consulting Specialty: Infectious Disease Consulting Physician: Dr. Chi Reason for Consult: Osteomyelitis
[2016-12-27] MEDS ORDERED: MORPHINE SULFAT30 M7 PO (07:58)
--- NOTE | 2016-12-27 12:03 | PN- Infect Dx ---
Subjective Subjective: Afebrile without complaints Objective Last 24 Hrs of Vital Signs/I&O Vital Signs Date Time Temp Pulse Resp B/P B/P Pulse O2 O2 Flow FiO2 Mean Ox Delivery Rate 12/27 0629 98.1 76 20 120/60 97 Room Air 12/26 2219 98.3 78 20 118/64 99 Room Air 12/26 1441 98.1 80 20 122/60 98 Room Air Intake & Output 12/27 1600 12/27 0800 12/27 0000 Intake Total 300 400 Output Total 75 700 Balance 225 -300 Intake, IV 380 Intake, Oral 300 20 Output, 75 Drainage Output, Urine 700 Physical Exam Other Physical Findings: He appears comfortable in no acute distress Extremities left foot dressing intact, with wound VAC in place; PICC in the right upper extremity with no inflammation at the site Results Last 24 Hours of Lab Results: Laboratory Tests 12/27 12/27 12/27 1140 0630 0619 Chemistry Sodium (137 - 145 mmol/L) 137 Cancelled Potassium (3.5 - 5.1 mmol/L) 4.7 Cancelled Chloride (98 - 107 mmol/L) 103 Cancelled Carbon Dioxide (22 - 30 mmol/L) 23 Cancelled Anion Gap (5 - 16) 11 Cancelled BUN (9 - 20 mg/dL) 26 H Cancelled Creatinine (0.7 - 1.2 mg/dL) 1.6 H Cancelled Estimated GFR (>60 ml/min) 45 L BUN/Creatinine Ratio (7 - 25 %) 16.3 Cancelled Hematology CBC w Diff Pending WBC Pending RBC Pending Hgb Pending Hct Pending MCV Pending MCH Pending RDW Pending Plt Count Pending MPV Pending PUBS MCHC Pending Toxicology Vancomycin Trough (10.0 - 20.0 ug/mL) 22.5 H Last 24 Hours of Jabier Results: No recent cultures Assessment/Plan Impression: Stable status post further debridement of the soft tissues of the left foot 3 days ago with no bone debrided, now 8 days since his most recent debridement of bone and soft tissues (as well as left leg angioplasty and stenting) for polymicrobial osteomyelitis, and 15 days status post left first ray resection. He remains afebrile with white blood cell count minimally elevated on Zosyn and Vancomycin, with his creatinine increased slightly today. His Vancomycin level this morning is of unclear significance as it was done just 7 1/2 hours after the Vancomycin was hung and, therefore, does not represent a trough level. Suggestion: 1. Obtain a Vancomycin trough level in the a.m. 2. Repeat CBC today 3. Strict nonweightbearing on the left foot per Podiatry 4. Continue Vancomycin and Zosyn to plan on a four-week course from his most recent debridement of bone (until January 16) 5. Will need weekly CBC, ESR, BUN/creatinine and Vancomycin trough level
[2016-12-27 12:30] LABS: ABSOLUTE BASOPHIL COUNT 0.1 /CUMM (0.0-0.2); ABSOLUTE EOSINOPHIL COUNT 0.4 /CUMM (0.0-0.7); ABSOLUTE GRANULOCYTE CT 6.2 /CUMM (1.4-6.5); ABSOLUTE LYMPH COUNT 1.8 /CUMM (1.2-3.4); ABSOLUTE MONOCYTE COUNT 0.6 /CUMM (0.10-0.60); BASOPHIL % 0.9 % (0.0-2.0); EOSINOPHIL % 4.9 % (0-5); GRANULOCYTE % 67.5 % (42.2-75.2); HEMATOCRIT 27.1 % (42-52); MEAN CORPUSCULAR HGB 26.1 PG (27.0-31.0); MEAN CORPUSCULAR VOLUME 81.5 FL (80.0-94.0); MEAN PLATELET VOLUME 7.9 FL (7.4-10.4); PLATELET COUNT 360 /CUMM (130-400); RBC DISTRIBUTION WIDTH 17.9 % (11.5-14.5); RED BLOOD CELL CT 3.33 /CUMM (4.70-6.10); WHITE BLOOD CELL COUNT 9.2 /CUMM (4.8-10.8)
[2016-12-27 12:46] VITALS: BP 120/60
== END 2016-12-27 13:27 | DRG 854 ==
LOC: ERH 15:57 → ER-OR 16:23 → 2NA 19:30 → PACUH 19:30 → ENRESERV 19:58 → 2NA 21:04 → ENTRNSPT 12-17 13:33 → EDTRNSPTTYP 12-17 13:47 → EDTRNSPT 12-17 13:47 → EDTRNSPTSTS 12-17 13:48 → CMPTRNSPT 12-17 13:54 → ENTRNSPT 12-24 14:24 → CMPTRNSPT 12-24 15:16 → 2NA 12-26 15:39
PROVIDERS: Internal Medicine; Internal Medicine Infectious Disease; Physician Assistant; Student in an Organized Health Care Education/Training Program; ADMIT Internal Medicine
PROC: 0JBR0ZZ Excision of Left Foot Subcutaneous Tissue and Fascia, Open Approach (ICD-10-PCS; principal; 2016-12-12)
PROC: 0Y6N0Z9 Detachment at Left Foot, Partial 1st Ray, Open Approach (ICD-10-PCS; principal; 2016-12-12)
PROC: 0QBP0ZZ Excision of Left Metatarsal, Open Approach (ICD-10-PCS; 2016-12-17)
PROC: 0JBR0ZZ Excision of Left Foot Subcutaneous Tissue and Fascia, Open Approach (ICD-10-PCS; 2016-12-17)
PROC: 047U3ZZ Dilation of Left Peroneal Artery, Percutaneous Approach (ICD-10-PCS; 2016-12-20)
PROC: 047L3DZ Dilation of Left Femoral Artery with Intraluminal Device, Percutaneous Approach (ICD-10-PCS; 2016-12-20)
PROC: 0JBR0ZZ Excision of Left Foot Subcutaneous Tissue and Fascia, Open Approach (ICD-10-PCS; 2016-12-20)
PROC: B41DZZZ Fluoroscopy of Aorta and Bilateral Lower Extremity Arteries (ICD-10-PCS; 2016-12-20)
PROC: 0JBR0ZZ Excision of Left Foot Subcutaneous Tissue and Fascia, Open Approach (ICD-10-PCS; 2016-12-24)
DX: A41.02 Sepsis due to Methicillin resistant Staphylococcus aureus (principal); N17.9 Acute kidney failure, unspecified; E11.42 Type 2 diabetes mellitus with diabetic polyneuropathy; L03.116 Cellulitis of left lower limb; M86.172 Other acute osteomyelitis, left ankle and foot; E87.5 Hyperkalemia; L02.612 Cutaneous abscess of left foot; E11.621 Type 2 diabetes mellitus with foot ulcer; E11.65 Type 2 diabetes mellitus with hyperglycemia; E11.69 Type 2 diabetes mellitus with other specified complication; I10 Essential (primary) hypertension; E78.5 Hyperlipidemia, unspecified; I73.9 Peripheral vascular disease, unspecified; I70.201 Unspecified atherosclerosis of native arteries of extremities, right leg; G89.29 Other chronic pain; M54.9 Dorsalgia, unspecified; D64.9 Anemia, unspecified; Z79.84 Long term (current) use of oral hypoglycemic drugs; F17.210 Nicotine dependence, cigarettes, uncomplicated
CPT/HCPCS: 2NAP; 2NASP; 87070; 87075; 87184; 36415; 73552; 73630-LT; 73630-RT; 80307; 82436; 82570; 84165; 84166; 86920; 87040; 87071; 87147; 88304; 88305; 93005; 93010; 93306; 93970; 97110-GO; 97116-GO; 97161-GP; 97165-GO; 97530-GO; 99291; C1725; C1760; C1769; C2623; G0480; J0131; J0690; J1170; J1644; J1815; J1885; J1940; J2001; J2250; J2543; J2997; J3010; J3370; J7040; J7042; P9016; Q9967